=== PATIENT | female | born 1975 | race Caucasian/White ===

== ENCOUNTER → 2016-11-25 | Outpatient (CLI) | payer OTHER ==
[2016-11-25 08:18] VITALS: BP 143/76; PULSE 65; RESP 16; TEMP 98.3; BMI 32.8
--- NOTE | 2016-11-25 09:53 | P.HPBAR ---
Bariatric H&P - History & Physicial H&P Date: 11/25/16 History & Physicial: 41 years old female with morbid obesity initial BMI 49.3 height 5 feet 2 inches , weight 124.33 KG underwent laparoscopic Gerson-en-Y gastric bypass on 2014. Chronic constipation now having BM every other day with caffeine intake . Mild elevation of LFTs and bilirubin. Already had cholecystectomy. LFTs normal in June. US done at PCP office- normal No nausea or vomiting. Tolerating diet well Hypertension has resolved. She is not taking any antihypertensive medications. Type 2 diabetes has resolved. She has herniated disc in the upper neck and back and has chronic pain secondary to fibromyalgia. Her sleep apnea has resolved. Recent brain MRI ordered by neurologist for suspected multiple sclerosis. CSF -negative for malignancy Her initial comorbid conditions include obstructive sleep apnea on CPAP, Type 2 diabetes, osteoarthritis of left hip, urinary incontinence, fibromyalgia, irritable bowel syndrome, depression, anxiety, posttraumatic stress disorder, insomnia, migraines, vitamin D deficiency, MS Multiple studies including CT abd/pelvis and SBFT for abdominal symptoms- no acute process/bowel obstruction. Resumed work , nigh shifts. C/o chronic tiredness, fatique, sleep deprivation Preoperative visit #1 07/24/2015, weight 124.33 KG, BMI 49.3 Preoperative visit #2 10/02/2015, weight 127 KG, BMI 50.4 Preoperative visit #3 10/23/2015, weight, 126 KG, BMI 50 Lap Gerson-en-Y gastric bypass 11/18/2015 Postoperative visit #1 11/27/2015, weight 113.96 KG, BMI of 45.2 Postoperative visit #2 02/05/2016, weight 104.5 kg, BMI 41.5 Postoperative visit #3 04/29/2016, weight 104.5 kg, BMI 41.5 Postoperative visit #4, 07/22/2016, weight 87.57 KG, BMI 34.7 Postoperative visit #5, 10/07/2016, weight 85.9KG, BMI 34.1 Postoperative visit#6,10/14/2016, weight 83.2 KG, BMI 33 Postoperative visit#7,11/25/2016, weight 82.7 KG, BMI 32.8 Review of Systems Constitutional: Denies fever, weight loss or loss of appetite HEENT: No difficulty in vision or hearing. Denies dysphagia. Cardiovascular: Denies chest pain, palpitations, dizziness, shortness of breath. Respiratory: No asthma or shortness of breath. Gastrointestinal: Irritable bowel syndrome with alternating constipation and diarrhea episodes Integumentary: Skin ulcers, rash or breakdown. No history of DVT Genitourinary: She has urinary incontinence,no hematuria or dysuria Neurologic: No seizures, denies weakness in upper or lower extremities. History of migraine headaches. History of TIA Musculoskeletal: Chronic hip pain, neck pain secondary to arthritis. History of fibromyalgia Psychiatry: Known history of depression, anxiety and posttraumatic stress disorder no suicidal ideation, no anxiety or psychosis Past Medical History Past Medical History: Diabetes Mellitus, Fibromyalgia, GERD/Reflux, Hyperlipidemia, Hypertension, Musculoskeletal Disorder, Osteoarthritis (OA), Sleep Apnea/CPAP/BIPAP Additional Past Medical History / Comment(s): Morbid obesity, diabetes mellitus , degenerative arthritis with chronic bilateral hip pain, history of bursitis, obstructive sleep apnea maintained on CPAP at pressure of 70 cm of water, irritable bowel syndrome, hiatal hernia history of H. pylori that was treated with antibiotics, fibromyalgia, GE reflux, History of Any Multi-Drug Resistant Organisms: None Reported Past Surgical History: Bariatric Surgery, Cholecystectomy, Hysterectomy, Orthopedic Surgery, Uterine Ablation Additional Past Surgical History / Comment(s): BILAT CARPAL TUNNEL RELEASE. GERSON EN Y. BILAT KNEE ARTHROSCOPY. RT ROTATOR CUFF REPAIR-05/2014. COLONOSCOPY, EGD Past Anesthesia/Blood Transfusion Reactions: Motion Sickness, Postoperative Nausea & Vomiting (PONV) Additional Past Anesthesia/Blood Transfusion Reaction / Comm: CLAUSTERPHOBIA Past Psychological History: Anxiety, Depression, PTSD Smoking Status: Never smoker Past Alcohol Use History: None Reported Past Drug Use History: None Reported - Past Family History Mother Family Medical History: Diabetes Mellitus, Hyperlipidemia, Hypertension Additional Family Medical History / Comment(s): OBESITY, DEPRESSION. GRANDFATHER HAD DVT Father Family Medical History: Coronary Artery Disease (CAD), Diabetes Mellitus, Hyperlipidemia, Hypertension, Myocardial Infarction ([place]), Renal Disease Additional Family Medical History / Comment(s): GOUT, CARDIAC STENTS Surgical - Exam Vital Signs Temp Pulse Resp BP 98.3 F 65 16 143/76 11/25/16 08:15 11/25/16 08:15 11/25/16 08:15 11/25/16 08:15 General: Patient is alert and oriented to time, place and person and cooperative with exam. She is not in acute distress. HEENT: No pallor, no icterus, no thyroid enlargement, no cervical lymphadenopathy. Chest: Bilateral equal breath sounds present. No wheezes, no crackles. Cardiovascular: Regular rate and rhythm. Abdomen: Soft, nontender, nondistended. No right upper quadrant tenderness. Well-healed surgical scars.No peritonitis. No obstruction Integumentary: No active ulcers or discharge. Neurologic: Cranial nerves II-XII intact. Strength upper and lower extremities 5/5. No focal neurologic deficits. Gait is normal. History of TIA, followed by Dr. Little. Recent diagnosis of multiple sclerosis. Psychiatric: No anxiety or psychosis. No suicidal thoughts. Has depression and posstraumatic stress disorder Bariatric Assessment & Plan (1) Depression Status: Acute (2) Fibromyalgia Status: Acute (3) Obesity (BMI 30.0-34.9) Status: Acute Plan: 1. 41 yr old female with chronic constipation now resolved 2. Elevated LFTs, prior cholecystectomy, repeat LFT in 6 months - follow up with PCP 3. Follow up with plastic surgeon Dr. Silva and Dr. Luca Dai for breast reduction/nipple discharge. She will also discuss panniculectomy with Dr. Silva 4. Daily MVI 5. [facility] 6. Continue support group meeting. Increase physical activity as tolerated Bariatric Checklist Checklist: Plan: Checklist: EGD: 1. Hiatal hernia: 2. H. Pylori: HgbA1c: Vitamin D: Smoking: Never smoker Primary care physician referral: Dr. Díaz Psychiatry clearance: Cardiology clearance: Sleep study: Diet journal: VTE risk score: VTE risk level: Rehab needs at discharge:
== END | disposition home or self-care (01) ==
LOC: BARWHC3 07:42
PROVIDERS: ATTEND Surgery
DX: Z48.815 Encounter for surgical aftercare following surgery on the digestive system (principal); Z71.3 Dietary counseling and surveillance; G47.30 Sleep apnea, unspecified; Z99.89 Dependence on other enabling machines and devices; Z98.84 Bariatric surgery status; F32.9 Major depressive disorder, single episode, unspecified; M79.7 Fibromyalgia; R79.89 Other specified abnormal findings of blood chemistry; E66.9 Obesity, unspecified; Z68.32 Body mass index [BMI] 32.0-32.9, adult
CPT/HCPCS: 97803; G0463; 99211

== ENCOUNTER 2016-12-07 21:05 | Inpatient (IN) | payer OTHER ==
[2016-12-07] MEDS ORDERED: HYDROmorphone 1 MG/ML 1 ML SYRINGE IVP STA ×2 (21:10→21:20)
[2016-12-07] MEDS ORDERED: METOCLOPRAMIDE 5 MG/ML 2 ML VIAL IVP STA (21:11)
[2016-12-07] MEDS ORDERED: ONDANSETRON 4 MG/2 ML VIAL IVP STA (21:21)
[2016-12-07] MEDS ORDERED: RX INFO: IV CONTRAST WAS GIVEN 1 EACH MISC MISCELLANE PRN (21:21)
[2016-12-07] MEDS ORDERED: IOHEXOL 350 MG/ML 25 ML BOTTLE (ORAL USE) PO PRN (21:21)
[2016-12-07] MEDS ORDERED: PANTOPRAZOLE 40 MG/10 ML VIAL IVP STA (21:21)
--- NOTE | 2016-12-07 21:22 | ED ---
General Adult HPI - General Chief complaint: Abdominal Pain Stated complaint: abdominal pain/nausea Time Seen by Provider: 12/07/16 21:09 Source: patient, RN notes reviewed, old records reviewed Mode of arrival: ambulatory Limitations: no limitations - History of Present Illness Initial comments: Chief complaint patient is here for abdominal pain small amount of vomiting. She has not bowel movement for 2 days long history of constipation problems. She's been taking supplements to help her go. Including MiraLAX and Dulcolax twice. She called Dr. Pretty on-call bariatric surgeon. Dr. Dugan: Patient to have a CAT scan IV and oral contrast for bariatric surgery. Rehydration. - Related Data Home Medications Medication Instructions Recorded Confirmed Citalopram Hydrobromide [CeleXA] 40 mg PO DAILY 04/15/14 12/07/16 Biotin 5 mg PO DAILY 04/29/16 12/07/16 Polyethylene Glycol 3350 [Miralax] 17 gm PO DAILY 10/08/16 12/07/16 Inulin/Chromium Picolinate [Fiber 1 tab PO BID 10/14/16 12/07/16 Gummies Chew] Bariatric Calcium 1 tab PO TID 12/07/16 12/07/16 Bariatric Multivitamin 1 tab PO BID 12/07/16 12/07/16 Allergies Allergy/AdvReac Type Severity Reaction Status Date / Time pregabalin [From Lyrica] Allergy Severe Swelling Verified 12/07/16 21:26 of lips & throat. prednisone Allergy Rash/Hives Verified 12/07/16 21:26 Sulfa (Sulfonamide Allergy Anaphylaxis Verified 12/07/16 21:26 Antibiotics) Review of Systems ROS Statement: Those systems with pertinent positive or pertinent negative responses have been documented in the HPI. Review of systems patient denies any headache or chest pain or shortness of breath she has chronic abdominal pain usually associated with constipation which was going on even before the bariatric surgery. Patient denies taking any opiates. Nausea small amount of vomiting. No bowel movement for 2 days. All systems otherwise reviewed. Past medical problems fibromyalgia, GERD, osteoarthritis, surgeries for 2 months ago bariatric surgery, gallbladder, hysterectomy, arthroscopic surgery to both knees, carpal tunnel and rotator cuff. Family history brain cancer. Patient has ALLERGIES to Lyrica, prednisone and sulfa. Denies smoking denies drinking. ROS Other: All systems not noted in ROS Statement are negative. Past Medical History Past Medical History: Diabetes Mellitus, Fibromyalgia, GERD/Reflux, Hyperlipidemia, Hypertension, Musculoskeletal Disorder, Osteoarthritis (OA), Sleep Apnea/CPAP/BIPAP Additional Past Medical History / Comment(s): Morbid obesity, diabetes mellitus , degenerative arthritis with chronic bilateral hip pain, history of bursitis, obstructive sleep apnea maintained on CPAP at pressure of 70 cm of water, irritable bowel syndrome, hiatal hernia history of H. pylori that was treated with antibiotics, fibromyalgia, GE reflux, History of Any Multi-Drug Resistant Organisms: None Reported Past Surgical History: Bariatric Surgery, Cholecystectomy, Hysterectomy, Orthopedic Surgery, Uterine Ablation Additional Past Surgical History / Comment(s): BILAT CARPAL TUNNEL RELEASE. LAURIE EN Y. BILAT KNEE ARTHROSCOPY. RT ROTATOR CUFF REPAIR-05/2014. COLONOSCOPY, EGD Past Anesthesia/Blood Transfusion Reactions: Motion Sickness, Postoperative Nausea & Vomiting (PONV) Additional Past Anesthesia/Blood Transfusion Reaction / Comment(s): CLAUSTERPHOBIA Past Psychological History: Anxiety, Depression, PTSD Smoking Status: Never smoker Past Alcohol Use History: None Reported Past Drug Use History: None Reported - Past Family History Mother Family Medical History: Diabetes Mellitus, Hyperlipidemia, Hypertension Additional Family Medical History / Comment(s): OBESITY, DEPRESSION. GRANDFATHER HAD DVT Father Family Medical History: Coronary Artery Disease (CAD), Diabetes Mellitus, Hyperlipidemia, Hypertension, Myocardial Infarction ([place]), Renal Disease Additional Family Medical History / Comment(s): GOUT, CARDIAC STENTS General Exam - General Exam Comments Initial Comments: General: The patient is awake and alert, complaining of abdominal pain getting progressively worse over the past day. Mild nausea vomiting no bowel movement for 2 days. History of constipation problems even before she had bariatric surgery 13 months ago. Vital signs show temperature 98.0 pulse 82 respiratory rate 18 pulse ox 90% room air blood pressure 144/91. Mildly elevated systolic and diastolic noted. Patient is in pain. Eye: Pupils are equal, round and reactive to light, extra-ocular movements are intact ; there is normal conjunctiva bilaterally. No signs of icterus. Ears, nose, mouth and throat: There are moist mucous membranes and no oral lesions. Neck: The neck is supple, there is no tenderness . Cardiovascular: There is a regular rate and rhythm. No murmur, rub or gallop is appreciated. Respiratory: Lungs are clear to auscultation, respirations are non-labored, breath sounds are equal. No wheezes, stridor, rales, or rhonchi. Gastrointestinal: Abdomen is soft, patient has voluntary guarding, no masses palpable. Hypoactive bowel sounds. No bowel movement for 2 days. Back: No complaint of back pain. Musculoskeletal: Full range of motion upper and lower extremities. No complaint of pain. Neurological: No complaint of or noted any neuro deficits. Skin: Skin is warm and dry and no rashes or lesions are noted. Limitations: no limitations Course Vital Signs 12/07/16 21:06 Temperature 98.0 F Pulse Rate 82 Respiratory 18 Rate Blood Pressure 144/91 O2 Sat by Pulse 98 Oximetry Medical Decision Making - Medical Decision Making Medical decision making; labs show white count 13.1 hemoglobin 15 hematocrit of 46. Potassium 4.3 with a BUN 16 creatinine 0.7 with a GFR greater than 60, glucose 123. AST and an ALT both elevated. Amylase and lipase within normal limits. CT of the abdomen was done and reviewed by radiologist his impression is there are postsurgical changes of bariatric surgery. There is food distention of the small bowel loops with probable distal small bowel obstruction. Transition zone is not well visualized. There is also suggestion of inflammatory bowel disease or enteritis changes involving proximal small bowel. Clinical correlation a surgical consultation recommended. #2 large amount of fecal material is noted in the colon. Patient is constipated. #3 cholecystectomy. 4 appendix appears unremarkable. As read by Dr. Johnson - Lab Data Result diagrams: 12/07/16 21:30 12/07/16 22:40 Lab Results 12/07/16 12/07/16 Range/Units 21:30 22:40 WBC 13.1 H (3.8-10.6) k/uL RBC 5.30 (3.80-5.40) m/uL Hgb 15.4 (11.4-16.0) gm/dL Hct 46.6 H (34.0-46.0) % MCV 88.0 (80.0-100.0) fL MCH 29.2 (25.0-35.0) pg MCHC 33.1 (31.0-37.0) g/dL RDW 13.0 (11.5-15.5) % Plt Count 276 (150-450) k/uL Neutrophils % 74 % Lymphocytes % 19 % Monocytes % 5 % Eosinophils % 2 % Basophils % 0 % Neutrophils # 9.7 H (1.3-7.7) k/uL Lymphocytes # 2.5 (1.0-4.8) k/uL Monocytes # 0.6 (0-1.0) k/uL Eosinophils # 0.2 (0-0.7) k/uL Basophils # 0.1 (0-0.2) k/uL Sodium 140 (137-145) mmol/L Potassium 4.3 (3.5-5.1) mmol/L Chloride 106 (98-107) mmol/L Carbon Dioxide 25 (22-30) mmol/L Anion Gap 9 mmol/L BUN 16 (7-17) mg/dL Creatinine 0.70 (0.52-1.04) mg/dL Est GFR (MDRD) Af Amer >60 (>60 ml/min/1.73 sqM) Est GFR (MDRD) Non-Af >60 (>60 ml/min/1.73 sqM) Glucose 123 H (74-99) mg/dL Calcium 8.5 (8.4-10.2) mg/dL Total Bilirubin 0.8 (0.2-1.3) mg/dL AST 46 H (14-36) U/L ALT 63 H (9-52) U/L Alkaline Phosphatase 87 (38-126) U/L Total Protein 6.0 L (6.3-8.2) g/dL Albumin 3.5 (3.5-5.0) g/dL Amylase 43 (30-110) U/L Lipase 40 (23-300) U/L Disposition Clinical Impression: Small bowel obstruction Disposition: ADMITTED IP TO THIS [facility] Condition: Serious
[2016-12-07] MEDS ORDERED: SODIUM CHLORIDE 0.9% 1,000 ML IV STA (22:09)
--- NOTE | 2016-12-07 22:39 | CT ---
EXAMINATION TYPE: CT abdomen pelvis w con DATE OF EXAM: 12/07/2016 10:08 PM COMPARISON: 10/01/2016 HISTORY: Pt states of vomiting and abdominal pain today. HX of bariatric sx. CT DLP: 848.8 mGycm Automated exposure control for dose reduction was used. TECHNIQUE: Helical acquisition of images was performed from the lung bases through the pelvis. CONTRAST: Performed with Oral Contrast and with IV Contrast, patient injected with 100 mL of Omnipaque 300. FINDINGS: LUNG BASES: No significant abnormality is appreciated. LIVER/GB: No significant abnormality is appreciated in the liver. Cholecystectomy changes are noted. PANCREAS: No significant abnormality is seen. SPLEEN: No significant abnormality is seen. ADRENALS: No significant abnormality is seen. KIDNEYS: No significant abnormality is seen. RETROPERITONEAL ADENOPATHY: None visualized REPRODUCTIVE ORGANS: There is probably partial or total hysterectomy changes. URINARY BLADDER: No significant abnormality is seen. PELVIC ADENOPATHY: None visualized. OSSEOUS STRUCTURES: Milder degenerative changes are present in the thoracolumbar spine. BOWEL: There is evidence of bariatric surgery changes in the interval with multiple surgical clips i n the area of stomach. There is moderate distention of small bowel loops with fold material extending from the anastomotic site of stomach as seen in the coronal image 24. The anastomotic site is noted with the stomach and small bowel in the axial image 24 and coronal image 23. There is suspected obstr ucting changes probably in the distal small bowel. The transition zone is not well visualized. There is mucosal thickening in the small bowel in the proximal portion near the anastomotic site with stomach and inflammatory bowel disease or enteritis changes in this area cannot be excluded in the c oronal image 27. The colonic bowel loops showed large amount of gas and fecal material and patient is constipated. Visualized opacified appendix in the coronal image 58 and axial image 59 is gas-filled and appears gr ossly unremarkable without significant surrounding inflammation. OTHER: No significant abnormal free fluid collections are noted in the abdomen and pelvis. IMPRESSION: 1. THERE ARE POSTSURGICAL CHANGES OF BARIATRIC SURGERY. THERE IS FOOD DISTENTION OF SMALL BOWEL LOOPS WITH PROBABLE DISTAL SMALL BOWEL OBSTRUCTION. THE TRANSITION ZONE IS NOT WELL-VISUALIZED. THERE IS A LSO SUGGESTION OF INFLAMMATORY BOWEL DISEASE OR ENTERITIS CHANGES INVOLVING PROXIMAL SMALL BOWEL. A C LINICAL CORRELATION AND SURGICAL CONSULTATION IS RECOMMENDED. 2. LARGE AMOUNT OF FECAL MATERIAL IS NOTED IN THE COLON. PATIENT IS CONSTIPATED. 3. Cholecystectomy. 4. Appendix appears unremarkable. A phone report is given to Dr. Hartmann at the time of the dictation.
[2016-12-07 22:44] LABS: Basophils # (A) 0.1 k/uL (0-0.2); Basophils % (A) 0 %; CH 29.8; Eosinophils # (A) 0.2 k/uL (0-0.7); Eosinophils % (A) 2 %; HCT 46.6 % (34.0-46.0); HDW 2.32; HGB 15.4 gm/dL (11.4-16.0); Luc # (Auto) 0.13; Luc % (Auto) 1; Lymphocytes # (A) 2.5 k/uL (1.0-4.8); Lymphocytes % (A) 19 %; MCH 29.2 pg (25.0-35.0); MCHC 33.1 g/dL (31.0-37.0); Mean Platelet Volume 7.9; Monocytes # (A) 0.6 k/uL (0-1.0); Monocytes % (A) 5 %; Neutrophils # (A) 9.7 k/uL (1.3-7.7); Neutrophils % (A) 74 %; WBC 13.1 k/uL (3.8-10.6); WBC (Perox) 12.95
[2016-12-07 23:11] LABS: ALT 63 U/L (9-52); AST 46 U/L (14-36); Alkaline Phosphatase 87 U/L (38-126); Amylase 43 U/L (30-110); Anion Gap 9 mmol/L; Blood Urea Nitrogen 16 mg/dL (7-17); Calcium 8.5 mg/dL (8.4-10.2); Carbon Dioxide 25 mmol/L (22-30); Chloride 106 mmol/L (98-107); Glucose 123 mg/dL (74-99); Non-African American GFR(MDRD) >60 (>60 ml/min/1.73 sqM); Potassium 4.3 mmol/L (3.5-5.1); Sodium 140 mmol/L (137-145); Total Bilirubin 0.8 mg/dL (0.2-1.3)
[2016-12-07] MEDS ORDERED: NALOXONE 0.4 MG/ML 1 ML VIAL IV PRN (23:36)
[2016-12-08] MEDS: HYDROmorphone 1 MG/ML 1 ML SYRINGE IV PRN ×6 (00:15→22:26)
[2016-12-08] MEDS: ONDANSETRON 4 MG/2 ML VIAL IVP PRN ×3 (05:22→22:25)
[2016-12-08] MEDS: SODIUM CHLORIDE 0.9% 1,000 ML IV SCH ×4 (08:23→20:16)
[2016-12-08] MEDS: PANTOPRAZOLE 40 MG/10 ML VIAL IV SCH (08:36)
[2016-12-08 10:08] LABS: Basophils % (A) 0 %; CH 29.3; CHCM 32.9; Eosinophils # (A) 0.1 k/uL (0-0.7); Eosinophils % (A) 1 %; HCT 43.5 % (34.0-46.0); Luc # (Auto) 0.08; Luc % (Auto) 1; Lymphocytes # (A) 2.6 k/uL (1.0-4.8); Lymphocytes % (A) 30 %; MCH 28.7 pg (25.0-35.0); MCHC 32.2 g/dL (31.0-37.0); MCV 89.4 fL (80.0-100.0); Mean Platelet Volume 7.5; Monocytes # (A) 0.5 k/uL (0-1.0); Monocytes % (A) 6 %; Neutrophils # (A) 5.4 k/uL (1.3-7.7); Neutrophils % (A) 62 %; RBC 4.87 m/uL (3.80-5.40); WBC 8.7 k/uL (3.8-10.6); WBC (Perox) 9.25
[2016-12-08 10:17] LABS: ALT 613 U/L (9-52); Alkaline Phosphatase 124 U/L (38-126); Anion Gap 9 mmol/L; Blood Urea Nitrogen 13 mg/dL (7-17); Calcium 8.2 mg/dL (8.4-10.2); Carbon Dioxide 25 mmol/L (22-30); Chloride 108 mmol/L (98-107); Glucose 101 mg/dL (74-99); Non-African American GFR(MDRD) >60 (>60 ml/min/1.73 sqM); Potassium 4.3 mmol/L (3.5-5.1); Sodium 142 mmol/L (137-145); Total Bilirubin 1.1 mg/dL (0.2-1.3); Total Protein 5.9 g/dL (6.3-8.2)
[2016-12-08 10:26] LABS: AST 1418 U/L (14-36)
[2016-12-08] MEDS ORDERED: MAGNESIUM HYDROXIDE 2,400 MG/10 ML CUP PO PRN (11:06)
--- NOTE | 2016-12-08 11:11 | XR ---
EXAMINATION TYPE: XR abdomen 2V DATE OF EXAM: 12/08/2016 11:01 AM COMPARISON: NONE INDICATION: Abdomen pain TECHNIQUE: Single view abdomen supine position FINDINGS: There is a normal bowel gas pattern. Fecal debris is within the ascending colon. Surgical suture is i n the left upper quadrant. Surgical clips are in the left and right upper quadrants. There is a large urinary bladder filled with contrast. Psoas margins are normal. No organomegaly is present. IMPRESSION: 1. No acute abnormality radiographically apparent.
[2016-12-08 11:44] LABS: Amylase <30 U/L (30-110); Cholesterol 155 mg/dL (<200); HDL Cholesterol 55 mg/dL (40-60); Triglycerides 72 mg/dL (<150)
[2016-12-08 12:15] LABS: Hepatitis B Surface Ag Index 0.07
[2016-12-08 12:21] LABS: Hepatitis B Core IgM Index 0.02
[2016-12-08 12:32] LABS: Hepatitis C Virus IgG Index 0.02
[2016-12-08 12:35] LABS: Hepatitis C Virus IgG Ab Negative (Negative)
--- NOTE | 2016-12-08 13:03 | P.CONS ---
History of Present Illness - Reason for Consult Consult date: 12/08/16 Elevated liver enzymes Requesting physician: No Hilliard - History of Present Illness 41-year-old female with a history of anxiety depression PTSD, fibromyalgia, cholelithiasis/cholecystectomy 20 years ago and laparoscopic Gerson-en-Y gastric bypass October 2015 presents with upper crampy abdominal pain nausea vomiting constipation that started yesterday. Consultation requested for elevated liver enzymes. Hepatitis panel negative. Admission white count 13 currently 8.7. Total bilirubin 0.8 currently 1.1. AST 46 currently 1418. ALT 63 currently 613. Alkaline phosphatase 87 currently 124. Amylase lipase within normal limits. Denies usage of of aspirin or Tylenol products prior to admission. No changes in her home medications prior to admission. Medications received since admission are Dilaudid, Protonix, and Zofran. No documented episodes of hypotension; blood pressure 104/63. No hospitalizations for retained gallstones since her cholecystectomy. Computed tomography scan abdomen and pelvis reported food distention of small bowel loops with probable distal small bowel obstruction with transition zone not well visualized. Enteritis changes involving proximal small bowel with large amount of fecal material in the colon. Postsurgical changes of bariatric surgery. Review of Systems Constitutional: Denies fever, chills, sweats, weight gain, or loss. HEENT: Negative for migraines, blurred vision or loss, earaches, drainage, tinnitus, oral mucosal lesions, dysphagia, or odynophagia. CARDIAC: Negative for chest pain, arrhythmias, or palpitation. RESPIRATORY: Negative for shortness of breath, hemoptysis, cough, or sputum production. GI: See HPI for pertinent findings : Negative for hematuria, urgency, frequency, polyuria, or dysuria. GYNc: Denies possibility of . Negative vaginal discharge. MUSCULOSKELETAL: She fibromyalgia. Osteo-arthritis. NEUROLOGIC: Negative for stroke or TIA. ENDOCRINE: Negative for thyroid problems. SKIN: Negative for rash or itching. PSYCHIATRIC: See of PTSD, depression and anxiety Past Medical History Past Medical History: Fibromyalgia, Musculoskeletal Disorder, Osteoarthritis (OA ) Additional Past Medical History / Comment(s): Morbid obesity, degenerative arthritis with chronic bilateral hip pain, history of bursitis, irritable bowel syndrome, hiatal hernia history of H. pylori that was treated with antibiotics, umbilical hernia History of Any Multi-Drug Resistant Organisms: None Reported Past Surgical History: Bariatric Surgery, Cholecystectomy, Hysterectomy, Orthopedic Surgery, Uterine Ablation Additional Past Surgical History / Comment(s): BILAT CARPAL TUNNEL RELEASE. GERSON EN Y. BILAT KNEE ARTHROSCOPY. RT ROTATOR CUFF REPAIR-05/2014. COLONOSCOPY, EGD Past Anesthesia/Blood Transfusion Reactions: Motion Sickness, Postoperative Nausea & Vomiting (PONV) Additional Past Anesthesia/Blood Transfusion Reaction / Comm: CLAUSTERPHOBIA Past Psychological History: Anxiety, Depression, PTSD Smoking Status: Never smoker Past Alcohol Use History: None Reported Past Drug Use History: None Reported - Past Family History Mother Family Medical History: Diabetes Mellitus, Hyperlipidemia, Hypertension Additional Family Medical History / Comment(s): OBESITY, DEPRESSION. GRANDFATHER HAD DVT Father Family Medical History: Coronary Artery Disease (CAD), Diabetes Mellitus, Hyperlipidemia, Hypertension, Myocardial Infarction ([place]), Renal Disease Additional Family Medical History / Comment(s): GOUT, CARDIAC STENTS Medications and Allergies Home Medications Medication Instructions Recorded Confirmed Type Citalopram Hydrobromide [CeleXA] 40 mg PO DAILY 04/15/14 12/07/16 History Biotin 5 mg PO DAILY 04/29/16 12/07/16 History Polyethylene Glycol 3350 [Miralax] 17 gm PO DAILY 10/08/16 12/07/16 History Inulin/Chromium Picolinate [Fiber 1 tab PO BID 10/14/16 12/07/16 History Gummies Chew] Bariatric Calcium 1 tab PO TID 12/07/16 12/07/16 History Bariatric Multivitamin 1 tab PO BID 12/07/16 12/07/16 History Allergies Allergy/AdvReac Type Severity Reaction Status Date / Time pregabalin [From Lyrica] Allergy Severe Swelling Verified 12/07/16 21:26 of lips & throat. prednisone Allergy Rash/Hives Verified 12/07/16 21:26 Sulfa (Sulfonamide Allergy Anaphylaxis Verified 12/07/16 21:26 Antibiotics) Physical Exam Vitals: Vital Signs Temp Pulse Pulse Resp BP BP Pulse Ox 12/08/16 07:00 97.5 F L 81 16 104/63 97 12/08/16 00:43 98.8 F 68 16 104/63 96 12/08/16 00:17 97.7 F 12/07/16 23:39 77 18 104/62 97 Intake and Output 12/07/16 12/08/1617 22:59 06:59 14:59 Other: Voiding Method Toilet Toilet # Voids 1 Results CBC & Chem 7: 12/08/16 09:52 12/08/16 12:59 Labs: Abnormal Lab Results - Last 24 Hours (Table) 12/08/16 12/08/16 Range/Units 09:52 09:52 Chloride 108 H (98-107) mmol/L Glucose 101 H (74-99) mg/dL Calcium 8.2 L (8.4-10.2) mg/dL AST 1418 H (14-36) U/L ALT 613 H (9-52) U/L Total Protein 5.9 L (6.3-8.2) g/dL Albumin 3.2 L (3.5-5.0) g/dL Amylase <30 L (30-110) U/L CT scan - abdomen: report reviewed CT scan - pelvis: report reviewed (Reviewed by Dr. Parsons) Assessment and Plan (1) Elevated liver enzymes Narrative/Plan: 41-year-old female admitted with 1 day history of acute upper abdominal pain with nausea vomiting constipation with history of Gerson-en-Y gastric bypass with CT imaging suggestive of partial small bowel obstruction with acute transaminitis of unclear etiology. History of cholecystectomy cholelithiasis cannot rule out evolving choledocholithiasis. Possible medication induced transaminitis. Status: Acute (2) History of Gerson-en-Y gastric bypass Status: Acute (3) Abdominal pain Status: Acute Plan: 1. Repeat hepatic function test at 1800 tonight and in the a.m. Will check acetaminophen and salicylate level as well as PT/INR. 2. Supportive measures. US abdomen and hepatic function test pending. 3. Will consider MRCP if transaminases do not improve as patient is not a candidate for ERCP due to Gerson-en-Y gastric bypass history. Patient is tentatively scheduled for surgery tomorrow. Thank you for this kind referral and the opportunity to participate in the care of your patient. This consultation was discussed with Dr. Parsons. The impression and plan of care have been directed as dictated.
[2016-12-08 13:34] LABS: Alkaline Phosphatase 151 U/L (38-126); Anion Gap 9 mmol/L; Blood Urea Nitrogen 13 mg/dL (7-17); Calcium 8.2 mg/dL (8.4-10.2); Carbon Dioxide 25 mmol/L (22-30); Chloride 107 mmol/L (98-107); Glucose 130 mg/dL (74-99); Non-African American GFR(MDRD) >60 (>60 ml/min/1.73 sqM); Sodium 141 mmol/L (137-145); Total Bilirubin 1.4 mg/dL (0.2-1.3); Total Protein 6.1 g/dL (6.3-8.2)
[2016-12-08 13:42] LABS: ALT 1025 U/L (9-52)
[2016-12-08 13:57] LABS: AST 2160 U/L (14-36)
--- NOTE | 2016-12-08 15:41 | P.HPIM ---
History of Present Illness H&P Date: 12/07/16 Chief Complaint: Abdominal pain 41-year-old female presented on the day of admission to the emergency room with a chief complaint of developing abdominal pain. Patient was stating that the abdominal pain felt like a cramping sensation it seemed to get more symptomatic over the past 24 hours. Patient stated that she had a sensation of nausea no active emesis. Patient states that she has had issues with constipation even before she had the bariatric surgery Patient states that she had not had a bowel movement in the past several days. Patient states that she has issues with constipation. Patient reportedly called Dr. Rhodes who was on-call for bariatric surgery. Patient did undergo a laparoscopic janice-en-y gastric bypass in October 2015. Patient was admitted to the services of the attending. There 's been a gastroneurology consultation requested On admission it was noted that the AST was 46 a currently is elevated at 1418. In the ALT 63 which currently is elevated to 613. Patient does not appear jaundiced. The CAT scan of the abdomen pelvis was report reviewed shows postsurgical changes of bariatric surgery. Small bowel loops with possible distal small bowel obstruction with a transition zone not well visualized.enteritis changes involving proximal small bowel with a large amount of fecal material noted in the colon Review of Systems Essentially unremarkable except as mentioned in the present illness Past Medical History Past Medical History: Fibromyalgia, Musculoskeletal Disorder, Osteoarthritis (OA ) Additional Past Medical History / Comment(s): Morbid obesity, degenerative arthritis with chronic bilateral hip pain, history of bursitis, irritable bowel syndrome, hiatal hernia history of H. pylori that was treated with antibiotics, umbilical hernia History of Any Multi-Drug Resistant Organisms: None Reported Past Surgical History: Bariatric Surgery, Cholecystectomy, Hysterectomy, Orthopedic Surgery, Uterine Ablation Additional Past Surgical History / Comment(s): BILAT CARPAL TUNNEL RELEASE. JANICE EN Y. BILAT KNEE ARTHROSCOPY. RT ROTATOR CUFF REPAIR-05/2014. COLONOSCOPY, EGD Past Anesthesia/Blood Transfusion Reactions: Motion Sickness, Postoperative Nausea & Vomiting (PONV) Additional Past Anesthesia/Blood Transfusion Reaction / Comment(s): CLAUSTERPHOBIA Past Psychological History: Anxiety, Depression, PTSD Smoking Status: Never smoker Past Alcohol Use History: None Reported Past Drug Use History: None Reported - Past Family History Mother Family Medical History: Diabetes Mellitus, Hyperlipidemia, Hypertension Additional Family Medical History / Comment(s): OBESITY, DEPRESSION. GRANDFATHER HAD DVT Father Family Medical History: Coronary Artery Disease (CAD), Diabetes Mellitus, Hyperlipidemia, Hypertension, Myocardial Infarction ([place]), Renal Disease Additional Family Medical History / Comment(s): GOUT, CARDIAC STENTS Medications and Allergies Home Medications Medication Instructions Recorded Confirmed Type Citalopram Hydrobromide [CeleXA] 40 mg PO DAILY 04/15/14 12/07/16 History Biotin 5 mg PO DAILY 04/29/16 12/07/16 History Polyethylene Glycol 3350 [Miralax] 17 gm PO DAILY 10/08/16 12/07/16 History Inulin/Chromium Picolinate [Fiber 1 tab PO BID 10/14/16 12/07/16 History Gummies Chew] Bariatric Calcium 1 tab PO TID 12/07/16 12/07/16 History Bariatric Multivitamin 1 tab PO BID 12/07/16 12/07/16 History Allergies Allergy/AdvReac Type Severity Reaction Status Date / Time pregabalin [From Lyrica] Allergy Severe Swelling Verified 12/07/16 21:26 of lips & throat. prednisone Allergy Rash/Hives Verified 12/07/16 21:26 Sulfa (Sulfonamide Allergy Anaphylaxis Verified 12/07/16 21:26 Antibiotics) Physical Exam Vitals: Vital Signs Temp Pulse Pulse Resp BP BP Pulse Ox 12/08/16 15:00 97.5 F L 62 16 109/65 92 L 12/08/16 07:00 97.5 F L 81 16 104/63 97 12/08/16 00:43 98.8 F 68 16 104/63 96 12/08/16 00:17 97.7 F 12/07/16 23:39 77 18 104/62 97 Intake and Output 12/08/16 12/08/16 12/08/16 06:59 14:59 22:59 Other: Voiding Method Toilet Toilet # Voids 1 1 # Bowel Movements 1 GENERAL APPEARANCE: 41-year-old patient is alert, oriented, in no acute distress. VITAL SIGNS: Reviewed HEENT: Head is normocephalic and atraumatic. Pupils are equal and reactive. The nares are patent. Oropharynx is clear without lesions. NECK: Supple without lymphadenopathy. Traches midline. HEART: S1, S2. Regular rate and rhythm. No murmur noted LUNGS: No crackles or wheezes are heard. No cough noted no conversational dyspnea noted on room air sats are documented 92% ABDOMEN: Soft, slight tenderness, nondistended with good bowel sounds. No peritoneal signs. No palpable organomegaly or masses. States urinating no difficulty EXTREMITIES: Normal skin color and turgor. No cyanosis, rash, ulceration, clubbing or edema. Radial pedal pulses are 2/4 bilaterally. NEUROLOGICAL: No focal deficits. Strength and sensation are grossly intact. Results CBC & Chem 7: 12/08/16 09:52 12/08/16 12:59 Labs: Abnormal Lab Results - Last 24 Hours (Table) 12/08/16 12/08/16 12/08/16 Range/Units 09:52 09:52 12:59 Chloride 108 H (98-107) mmol/L Glucose 101 H 130 H (74-99) mg/dL Calcium 8.2 L 8.2 L (8.4-10.2) mg/dL Total Bilirubin 1.4 H (0.2-1.3) mg/dL AST 1418 H 2160 H (14-36) U/L ALT 613 H 1025 H (9-52) U/L Alkaline Phosphatase 151 H (38-126) U/L Total Protein 5.9 L 6.1 L (6.3-8.2) g/dL Albumin 3.2 L 3.4 L (3.5-5.0) g/dL Amylase <30 L (30-110) U/L Thrombosis Risk Factor Assmnt - Choose All That Apply Each Factor Represents 1 point: Hx of IBD, Obesity (BMI >25) Thrombosis Risk Factor Assessment Total Risk Factor Score: 2 Thrombosis Risk Factor Assessment Level: Low Risk Assessment and Plan Plan: Impression Present on admission abdominal pain nausea unclear etiology Sudden acute elevated liver enzymes unclear etiology History of Janice-en-Y gastric bypass 13 months prior Chronic constipation Present on admission leukocytosis unclear etiology Anxiety depressive disorder nonspecified Plan repeat the liver enzymes now follow up on results Continue recommendations by GI service IV hydration Bowel stimulant as ordered monitor the response DVT and GI prophylaxis Further recommendations pending Resume home meds as appropriate The above dictated assessment and findings were discussed with paolo Coronado and the plan of care have been dictated as directed. Jessie Garibay nurse practitioner acting as a scribe for dr Hilliard
[2016-12-08 15:43] LABS: INR 1.1 (<1.1); Prothrombin Time 10.7 sec (9.0-12.0)
--- NOTE | 2016-12-08 17:31 | MR ---
EXAMINATION TYPE: MR MRCP DATE OF EXAM: 12/08/2016 5:03 PM COMPARISON: NONE HISTORY: GASTRIC BYPASS 10/2015, IBS 06/2016, Severe Abdominal Pain for 2 weeks, Standard multiplanar, multisequence MRI departmental protocol Multiplanar, multisequence images of the abdomen were acquired. FINDINGS: Cholecystectomy is noted. The common bile duct measures up to 8 mm. I see no filling defect . There is normal appearance of the distal common bile duct. I see no dilation of the intrahepatic bi le ducts. The pancreas has normal size and contour. Pancreatic duct is not dilated. I see no focal li yudith defect. Spleen shows 2 less than 1 cm rounded high signal foci that are probably splenic cysts.. Kidneys have normal size and contour. There is no hydronephrosis. I see no sign of pleural effusion. There is no evidence of retroperitoneal adenopathy. There is no sign of ascites. IMPRESSION: Negative MRCP exam. Cholecystectomy noted. No dilated ducts. Common bile duct is normal size for jacinta ent after cholecystectomy. No evidence of an obstructing stone or lesion in the distal common bile du ct. There appears to be clearing of left pleural effusion compared to the CT scan of 12/06/2015.
--- NOTE | 2016-12-08 17:41 | US ---
EXAMINATION TYPE: US abdomen complete DATE OF EXAM: 12/08/2016 2:36 PM COMPARISON: CT abdomen 12/07/2016. CLINICAL HISTORY: . Nausea, vomiting, abdomen pain EXAM MEASUREMENTS: Liver Length: 14.1cm Gallbladder Wall: surgically absent CBD: 0.7cm Spleen: 9.7cm Right Kidney: 11.7 x 4.0 x 5.6cm Left Kidney: 10.9 x 5.6 x 4.7cm ANATOMY: TECHNOLOGIST IMPRESSION: Pancreas: Obscured by bowel gas Liver: heterogeneous Gallbladder: Surgically absent Evidence for sonographic Osman's sign: CBD: wnl Spleen: hyperechoic circular structure with peripheral vascularity measuring 1.1 x 1.0 x 1.1cm Right Kidney: wnl Left Kidney: wnl Upper IVC: wnl Abd Aorta: bifurcation obscured by bowel gas There is an echogenic focus within the spleen measuring 1 cm in diameter. Consider hemangioma within the differential. IMPRESSION: 1. Possible hemangioma within the spleen. Monitoring with ultrasound is recommended.
[2016-12-08 19:05] LABS: Bilirubin, Delta 0.4 mg/dL (0.0-0.2); Total Bilirubin 1.6 mg/dL (0.2-1.3)
[2016-12-08 19:27] LABS: Acetaminophen <10.0 ug/mL; Salicylate <1.0 mg/dL
[2016-12-09] MEDS: HYDROmorphone 1 MG/ML 1 ML SYRINGE IV PRN ×4 (02:46→22:13)
[2016-12-09] MEDS: ONDANSETRON 4 MG/2 ML VIAL IVP PRN ×3 (06:55→22:13)
[2016-12-09] MEDS: PANTOPRAZOLE 40 MG/10 ML VIAL IV SCH (08:08)
[2016-12-09] MEDS: SODIUM CHLORIDE 0.9% 1,000 ML IV SCH ×3 (08:09→22:38)
[2016-12-09 08:46] LABS: Basophils # (A) 0.1 k/uL (0-0.2); Basophils % (A) 1 %; CH 29.4; CHCM 32.1; Eosinophils # (A) 0.3 k/uL (0-0.7); Eosinophils % (A) 5 %; HCT 41.8 % (34.0-46.0); HDW 2.33; HGB 13.4 gm/dL (11.4-16.0); Luc # (Auto) 0.09; Luc % (Auto) 1; Lymphocytes # (A) 2.5 k/uL (1.0-4.8); Lymphocytes % (A) 36 %; MCH 29.4 pg (25.0-35.0); MCHC 31.9 g/dL (31.0-37.0); Mean Platelet Volume 7.6; Monocytes # (A) 0.4 k/uL (0-1.0); Monocytes % (A) 5 %; Neutrophils # (A) 3.6 k/uL (1.3-7.7); Neutrophils % (A) 52 %; RBC 4.55 m/uL (3.80-5.40); RDW 13.1 % (11.5-15.5); WBC 6.9 k/uL (3.8-10.6); WBC (Perox) 6.91
[2016-12-09 09:18] LABS: ALT 709 U/L (9-52); AST 591 U/L (14-36); Alkaline Phosphatase 153 U/L (38-126); Anion Gap 9 mmol/L; Blood Urea Nitrogen 11 mg/dL (7-17); Calcium 8.5 mg/dL (8.4-10.2); Carbon Dioxide 29 mmol/L (22-30); Chloride 104 mmol/L (98-107); Glucose 78 mg/dL (74-99); Non-African American GFR(MDRD) >60 (>60 ml/min/1.73 sqM); Potassium 4.3 mmol/L (3.5-5.1); Sodium 142 mmol/L (137-145); Total Bilirubin 2.1 mg/dL (0.2-1.3); Total Protein 6.1 g/dL (6.3-8.2)
--- NOTE | 2016-12-09 09:26 | P.PN ---
Subjective Principal diagnosis: abdominal pain elevated liver enzymes 41-year-old female with a history of cholecystectomy and Gerson-en-Y gastric bypass admitted with abdominal pain and subsequent elevation of liver enzymes. Ultrasound, CT, and MRCP did not identify dilation of intra-or extrahepatic biliary ducts. No evidence of gallstones. Transaminases slightly improved. Total bilirubin last night 1.6. Unconjugated 1.2. Still reports mild upper abdominal discomfort. Afebrile. Scheduled for diagnostic surgery today for suspected partial small bowel obstruction/dilated Gerson limb per CT. Objective - Vital Signs Vital signs: Vital Signs Temp 97.1 F L 12/09/16 07:00 Pulse 69 12/09/16 07:00 Resp 16 12/09/16 07:00 BP 118/75 12/09/16 07:00 Pulse Ox 97 12/09/16 07:00 Intake & Output 12/08/16 12/09/16 12/09/16 18:59 06:59 18:59 Other: Voiding Method Toilet # Voids 1 1 # Bowel Movements 1 - Exam General appearance: The patient is alert, oriented, in no acute distress. HET: Head is normocephalic and atraumatic. Pupils are equal and reactive. Oropharynx is clear without lesions. Neck: Supple without lymphadenopathy. Trachea midline. Heart: S1 S2. Regular rate and rhythm. Lungs: No crackles or wheezes are heard. Abdomen: Soft, very mild midepigastric tenderness, nondistended with bowel sounds. No peritoneal signs. No palpable organomegaly or masses. Extremities: Normal skin color and turgor. No cyanosis, rash, ulceration, clubbing, or edema. Radial and pedal pulses are 2/4 bilaterally. Neurological: No focal deficits. Strength and sensation are grossly intact. - Labs CBC & Chem 7: 12/09/16 08:19 12/08/16 12:59 Labs: Abnormal Lab Results - Last 24 Hours (Table) 12/08/16 12/08/16 12/08/16 Range/Units 09:52 09:52 12:59 Chloride 108 H (98-107) mmol/L Glucose 101 H 130 H (74-99) mg/dL Calcium 8.2 L 8.2 L (8.4-10.2) mg/dL Total Bilirubin 1.4 H (0.2-1.3) mg/dL Unconjugated Bilirubin (0.0-1.1) mg/dL Delta Bilirubin (0.0-0.2) mg/dL AST 1418 H 2160 H (14-36) U/L ALT 613 H 1025 H (9-52) U/L Alkaline Phosphatase 151 H (38-126) U/L Total Protein 5.9 L 6.1 L (6.3-8.2) g/dL Albumin 3.2 L 3.4 L (3.5-5.0) g/dL Amylase <30 L (30-110) U/L 12/08/16 Range/Units 18:34 Chloride (98-107) mmol/L Glucose (74-99) mg/dL Calcium (8.4-10.2) mg/dL Total Bilirubin 1.6 H (0.2-1.3) mg/dL Unconjugated Bilirubin 1.2 H (0.0-1.1) mg/dL Delta Bilirubin 0.4 H (0.0-0.2) mg/dL AST 1347 H (14-36) U/L ALT 999 H (9-52) U/L Alkaline Phosphatase 165 H (38-126) U/L Total Protein 6.0 L (6.3-8.2) g/dL Albumin 3.4 L (3.5-5.0) g/dL Amylase (30-110) U/L Assessment and Plan (1) Elevated liver enzymes Narrative/Plan: 41-year-old female admitted with 1 day history of acute upper abdominal pain with nausea vomiting constipation with history of Gerson-en-Y gastric bypass with CT imaging suggestive of partial small bowel obstruction with acute transaminitis of unclear etiology. She has a history of cholelithiasis and cholecystectomy more than 20 years ago. Elevated transaminases and mild hyperbilirubinemia is felt to be related to passage of choledocholithiasis even though radiographic imaging failed to yield any retained CBD stone or dilated ducts. Medication induced transaminitis felt to be less likely. Status: Acute (2) History of Gerson-en-Y gastric bypass Status: Acute (3) Abdominal pain Status: Acute Plan: 1. Supportive measures and monitoring of liver function tests. 2. Patient is scheduled for surgery today with Dr. Hilliard. 3. Will follow closely with you. Assessment and plan a care discussed with Dr. Parsons.
[2016-12-09] MEDS ORDERED: IV FLUID CONTINUATION 1,000 ML IV ONE (12:25)
[2016-12-09] MEDS ORDERED: SCOPOLAMINE 1.5MG/72HR PATCH TRANSDERM STA (12:31)
[2016-12-09] MEDS ORDERED: HEPARIN SODIUM,PORCINE 5,000 UNIT/ML 1 ML VIAL SQ ONE (12:53)
--- NOTE | 2016-12-09 12:57 | P.PN ---
Subjective Principal diagnosis: Abdominal pain 41 yrs old female with diffuse abdominal pain on and off. Prior history of Gerson -en-Y gastric bypass. Computed tomography scan showed possible small bowel obstruction. Patient has chronic constipation. She had bowel movements after enemas. Still complains of abdominal pain, diffuse in nature. Elevated LFTs with markedly elevation of AST and ALT. LFTs are trending down. No signs of jaundice. Prior history of cholecystectomy. Ultrasound and MRCP within normal limits Objective - Vital Signs Vital signs: Vital Signs Temp 98.4 F 12/09/16 12:23 Pulse 61 12/09/16 12:23 Resp 18 12/09/16 12:23 BP 132/80 12/09/16 12:23 Pulse Ox 98 12/09/16 12:23 Intake & Output 12/08/16 12/09/16 12/09/16 18:59 06:59 18:59 Other: Voiding Method Toilet Toilet # Voids 1 1 # Bowel Movements 1 - Exam General: Patient is alert and oriented to time, place and person and cooperative with exam. HEENT: No pallor, no icterus Chest: Bilateral equal breath sounds present. No wheezes, no crackles. Cardiovascular: Regular rate and rhythm. Abdomen: Soft, tenderness on deep palpation. No ami peritonitis. Neurologic: Cranial nerves II-XII intact. Strength upper and lower extremities 5/5. No focal neurologic deficits. Gait is normal. - Labs CBC & Chem 7: 12/09/16 08:19 12/09/16 08:19 Labs: Abnormal Lab Results - Last 24 Hours (Table) 12/08/16 12/08/16 12/09/16 Range/Units 12:59 18:34 08:19 Glucose 130 H (74-99) mg/dL Calcium 8.2 L (8.4-10.2) mg/dL Total Bilirubin 1.4 H 1.6 H 2.1 H (0.2-1.3) mg/dL Unconjugated Bilirubin 1.2 H (0.0-1.1) mg/dL Delta Bilirubin 0.4 H (0.0-0.2) mg/dL AST 2160 H 1347 H 591 H (14-36) U/L ALT 1025 H 999 H 709 H (9-52) U/L Alkaline Phosphatase 151 H 165 H 153 H (38-126) U/L Total Protein 6.1 L 6.0 L 6.1 L (6.3-8.2) g/dL Albumin 3.4 L 3.4 L 3.4 L (3.5-5.0) g/dL Assessment and Plan (1) Abdominal pain Status: Acute (2) Elevated liver enzymes Status: Acute (3) History of Gerson-en-Y gastric bypass Status: Acute (4) Chronic constipation Status: Acute Plan: Diagnostic laparoscopy, possible open possible revision of j-j anastomois Informed consent obtained and patient elected to undergo the procedure. Bilateral SCDs Heparin 5000 units subcu injection 1.
[2016-12-09] MEDS ORDERED: fentaNYL (PF) 50 MCG/ML 2 ML AMP ONE (13:10)
[2016-12-09] MEDS ORDERED: ROCURONIUM BROMIDE 10 MG/ML 10 ML VIAL IV ONE (13:10)
[2016-12-09] MEDS ORDERED: NEOSTIGMINE 1 MG/ML 10 ML VIAL ONE (13:10)
[2016-12-09] MEDS ORDERED: PROPOFOL 10 MG/ML 20 ML VIAL IV ONE (13:10)
[2016-12-09] MEDS ORDERED: GLYCOPYRROLATE 0.2 MG/ML 2 ML VIAL ONE (13:10)
[2016-12-09] MEDS ORDERED: MIDAZOLAM 2 MG/2 ML VIAL ONE (13:10)
[2016-12-09] MEDS ORDERED: ePHEDrine 50 MG/ML 1 ML AMP ONE (13:10)
[2016-12-09] MEDS ORDERED: ceFAZolin 1,000 MG VIAL ONE (13:10)
[2016-12-09] MEDS ORDERED: LIDOCAINE 1% INJ 10MG/ML (20 ML MDV) ONE (13:10)
[2016-12-09] MEDS ORDERED: SUCCINYLCHOLINE CHLORIDE 100 MG/5 ML SYR IV ONE (13:10)
[2016-12-09] MEDS ORDERED: SODIUM CHLORIDE 0.9% 50 ML with ceFAZolin 2,000 MG IV ONE ×2 (13:40)
[2016-12-09] MEDS ORDERED: BUPIVACAIN-EPI 0.25%-1:200,000 30 ML VIAL SQ ONE ×2 (13:45)
[2016-12-09] MEDS ORDERED: LACTATED RINGERS 1,000 ML IV ONE (14:15)
--- NOTE | 2016-12-09 15:01 | P.OP ---
Date of Procedure: 12/09/16 Preoperative Diagnosis: Chronic abdominal pain status post Gerson-en-Y gastric bypass Postoperative Diagnosis: Same Procedure(s) Performed: Diagnostic laparoscopy Laparoscopic lysis of adhesions for 30 minutes Implants: NA Anesthesia: ELLA Surgeon: No Hilliard Threshing Operator #1: Sara Rhodes Estimated Blood Loss (ml): 5 Pathology: none sent Condition: other (ASA 2) Disposition: PACU Indications for Procedure: 41 years old female presents with intermittent history of abdominal pain which is described as severe. Patient also has chronic constipation, irritable bowel syndrome and fibromyalgia. Informed consent was obtained from the patient after explaining the risks, benefits and potential complications and she elected to undergo diagnostic laparoscopy possible open and all indicated procedures. Operative Findings: No internal hernia. No bowel obstruction. Adhesions between the Gerson limb and anterior abdominal wall which were taken down using sharp dissection. The Ames defect was small. Prior sutures was seen and was reinforced with another 2-0 silk stitch Description of Procedure: The patient was brought to the operating room and placed in split leg position. Gen. anesthesia was given as per anesthesia team. Chlorhexidine was used to prep the skin. Sterile Taylor catheter was inserted. Ioban was applied followed by sterile drapes. A timeout was performed to verify correct patient and correct procedure. A 5 mm skin incision was made in the left subcostal area and a Veress needle inserted and pneumoperitoneum established to a pressure of 15 mmHg. A 5 mm 30 Optiview camera was loaded and a 5 mm 30 laparoscope and the peritoneal cavity was directly entered. Additional 5 mm trocar was placed in the right upper quadrant, 12 mm trocar in the supraumbilical location and 5 mm trocar in the left upper quadrant. There were omental and Gerson limb adhesions to the anterior abdominal wall which was taken down using combination of sharp dissection and laparoscopic LigaSure device. The gastrojejunostomy anastomosis was clearly identified. The Gerson limb was run to the jejunojejunal anastomosis. The BP limb was identified and run backwards to was the ligament of Treitz. No obstruction noted. The common limb was run from terminal ileum to which the jejunojejunal anastomosis. No obstruction identified. Multiple flimsy adhesion bands noted which were sharply lysed. The Ames defect was checked. It had a small opening and prior sutures. This was reinforced with another figure of 8 suture of 2-0 silk and the defect was completely closed. No additional abnormality identified. Patient tolerated the procedure well. The 12 mm trocar site was closed with single trans-fascial sutures of 0 Vicryl. The sponge, instrument and needle count were correct 2. Patient tolerated the procedure well and was taken to post anesthesia care unit in stable condition
[2016-12-09] MEDS: HYDROmorphone 1 MG/ML 1 ML SYRINGE IVP ONE ×2 (15:27→15:34)
[2016-12-09] MEDS ORDERED: KETOROLAC 30 MG/ML 1 ML VIAL IVP ONE (15:28)
[2016-12-09] MEDS: ACETAMINOPHEN IV (For NPO) 1,000 MG in EMPTY BAG 1 BAG IVPB SCH ×2 (17:53→23:48)
[2016-12-10] MEDS: HYDROmorphone 1 MG/ML 1 ML SYRINGE IV PRN ×3 (03:41→10:07)
[2016-12-10] MEDS: ACETAMINOPHEN IV (For NPO) 1,000 MG in EMPTY BAG 1 BAG IVPB SCH (05:32)
[2016-12-10] MEDS: ONDANSETRON 4 MG/2 ML VIAL IVP PRN (06:49)
[2016-12-10 07:27] VITALS: PULSE 61
[2016-12-10] MEDS: PANTOPRAZOLE 40 MG/10 ML VIAL IV SCH (08:13)
[2016-12-10] MEDS: SODIUM CHLORIDE 0.9% 1,000 ML IV SCH (08:14)
[2016-12-10 09:25] LABS: Basophils % (A) 0 %; CH 29.2; CHCM 32.4; Eosinophils # (A) 0.1 k/uL (0-0.7); Eosinophils % (A) 2 %; HCT 41.5 % (34.0-46.0); HDW 2.23; HGB 12.8 gm/dL (11.4-16.0); Luc # (Auto) 0.13; Luc % (Auto) 2; Lymphocytes # (A) 2.8 k/uL (1.0-4.8); Lymphocytes % (A) 35 %; MCHC 30.9 g/dL (31.0-37.0); MCV 90.6 fL (80.0-100.0); Monocytes # (A) 0.3 k/uL (0-1.0); Monocytes % (A) 4 %; Neutrophils # (A) 4.7 k/uL (1.3-7.7); Neutrophils % (A) 58 %; RBC 4.58 m/uL (3.80-5.40); RDW 12.8 % (11.5-15.5); WBC 8.1 k/uL (3.8-10.6); WBC (Perox) 8.08
[2016-12-10 09:31] LABS: ALT 396 U/L (9-52); AST 146 U/L (14-36); Alkaline Phosphatase 122 U/L (38-126); Anion Gap 9 mmol/L; Blood Urea Nitrogen 11 mg/dL (7-17); Calcium 8.5 mg/dL (8.4-10.2); Carbon Dioxide 26 mmol/L (22-30); Chloride 102 mmol/L (98-107); Glucose 102 mg/dL (74-99); Non-African American GFR(MDRD) >60 (>60 ml/min/1.73 sqM); Potassium 4.2 mmol/L (3.5-5.1); Sodium 137 mmol/L (137-145); Total Bilirubin 1.6 mg/dL (0.2-1.3); Total Protein 5.8 g/dL (6.3-8.2)
[2016-12-10] MEDS ORDERED: HYDROcodone/APAP 7.5-325MG 1 EACH TAB PO PRN (10:42)
[2016-12-10] MEDS ORDERED: ONDANSETRON 4 MG TAB PO PRN (10:44)
[2016-12-10] MEDS ORDERED: PANTOPRAZOLE 40 MG TABLET PO SCH (10:45)
[2016-12-10] MEDS ORDERED: ACETAMINOPHEN IV (For NPO) 1,000 MG in EMPTY BAG 1 BAG IVPB SCH (12:00)
--- NOTE | 2016-12-10 12:24 | P.PN ---
Subjective Principal diagnosis: abdominal pain elevated liver enzymes 41-year-old female with a history of cholecystectomy and Gerson-en-Y gastric bypass admitted with abdominal pain and subsequent elevation of liver enzymes. Ultrasound, CT, and MRCP did not identify dilation of intra-or extrahepatic biliary ducts. No evidence of gallstones. Transaminases improved yesterday. Afebrile. Status post diagnostic laparoscopy with lysis of adhesions yesterday. Tolerating bariatric for liquid diet. Abdominal pain improved. Objective - Vital Signs Vital signs: Vital Signs Temp 97.5 F L 12/10/16 07:00 Pulse 61 12/10/16 07:00 Resp 20 12/10/16 07:00 BP 115/75 12/10/16 07:00 Pulse Ox 97 12/10/16 07:00 Intake & Output 12/09/16 12/10/16 12/10/16 18:59 06:59 18:59 Intake Total 1600 625 Output Total 355 Balance 1245 625 Intake: IV 1600 Oral 0 625 Output: Urine 350 Estimated Blood Loss 5 Other: Voiding Method Toilet # Voids 1 1 - Exam General appearance: The patient is alert, oriented, in no acute distress. HET: Head is normocephalic and atraumatic. Pupils are equal and reactive. Oropharynx is clear without lesions. Neck: Supple without lymphadenopathy. Trachea midline. Heart: S1 S2. Regular rate and rhythm. Lungs: No crackles or wheezes are heard. Abdomen: Soft, laparoscopic incisions without erythema or drainage, nondistended with bowel sounds. No peritoneal signs. No palpable organomegaly or masses. Extremities: Normal skin color and turgor. No cyanosis, rash, ulceration, clubbing, or edema. Radial and pedal pulses are 2/4 bilaterally. Neurological: No focal deficits. Strength and sensation are grossly intact. - Labs CBC & Chem 7: 12/10/16 08:06 12/10/16 08:06 Labs: Abnormal Lab Results - Last 24 Hours (Table) 12/10/16 12/10/16 Range/Units 08:06 08:06 MCHC 30.9 L (31.0-37.0) g/dL Glucose 102 H (74-99) mg/dL Total Bilirubin 1.6 H (0.2-1.3) mg/dL AST 146 H (14-36) U/L ALT 396 H (9-52) U/L Total Protein 5.8 L (6.3-8.2) g/dL Albumin 3.2 L (3.5-5.0) g/dL Assessment and Plan (1) Elevated liver enzymes Narrative/Plan: 41-year-old female admitted with 1 day history of acute upper abdominal pain with nausea vomiting constipation with history of Gerson-en-Y gastric bypass with CT imaging suggestive of partial small bowel obstruction with acute transaminitis of unclear etiology. She has a history of cholelithiasis and cholecystectomy more than 20 years ago. Elevated transaminases and mild hyperbilirubinemia is felt to be related to passage of choledocholithiasis even though radiographic imaging failed to yield any retained CBD stone or dilated ducts. Medication induced transaminitis felt to be less likely. Status: Acute (2) History of Gerson-en-Y gastric bypass Status: Acute (3) Abdominal pain Narrative/Plan: Status post diagnostic laparoscopy and lysis of adhesions Status: Acute (4) Chronic constipation Status: Chronic Plan: 1. Agreeable for discharge. Senokot-S 2 tablets daily, may increase to 2 tablets twice daily for constipation. 2. Follow-up with general surgery and primary care physician as directed. Recommend repeat liver function tests within a week of discharge. Assessment and plan a care discussed with Dr. Parsons.
[2016-12-10 14:51] VITALS: BP 99/61; RESP 18; TEMP 98.8
--- NOTE | 2016-12-10 16:01 | P.DS ---
Providers Date of admission: 12/07/16 23:36 Attending physician: No Hilliard Primary care physician: Aneudy Díaz Patient Condition at Discharge: Serious Plan - Discharge Summary New Discharge Prescriptions: Sennosides-Docusate Sodium [Senokot-S] 2 tab PO DAILY #60 tablet Discharge Medication List Citalopram Hydrobromide [CeleXA] 40 mg PO DAILY 04/15/14 [History] Biotin 5 mg PO DAILY 04/29/16 [History] Polyethylene Glycol 3350 [Miralax] 17 gm PO DAILY 10/08/16 [History] Inulin/Chromium Picolinate [Fiber Gummies Chew] 1 tab PO BID 10/14/16 [History] Bariatric Calcium 1 tab PO TID 12/07/16 [History] Bariatric Multivitamin 1 tab PO BID 12/07/16 [History] Sennosides-Docusate Sodium [Senokot-S] 2 tab PO DAILY #60 tablet 12/10/16 [Rx] Follow up Appointment(s)/Referral(s): Aneudy Díaz DO [Primary Care Provider] - 1-2 days Ambulatory/Diagnostic Orders: Comprehensive Metabolic Panel [LAB.AMB] Time Frame: 1 Week, Location: Determined By Patient Activity/Diet/Wound Care/Special Instructions: Senokot-S 2 tablets daily may increase to 2 tablets twice a day as needed for chronic constipation.
[2016-12-10] MEDS ORDERED: NON-FORMULARY DRUG (Inulin/Chromium Picolinate [Fiber Gummies Chew] 1 TAB) PO SCH (21:00)
[2016-12-10] MEDS ORDERED: MULTIVITAMINS, THERA 1 EACH TAB PO SCH (21:00)
[2016-12-11] MEDS ORDERED: PANTOPRAZOLE 40 MG TABLET PO SCH (07:30)
[2016-12-11] MEDS ORDERED: NON-FORMULARY DRUG (Biotin [Biotin] 5 MG) PO SCH (09:00)
[2016-12-11] MEDS ORDERED: CITALOPRAM HYDROBROMIDE 20 MG TAB PO SCH (09:00)
[2016-12-11] MEDS ORDERED: POLYETHYLENE GLYCOL 3350 17 GM POWD.PACK PO SCH (09:00)
== END 2016-12-10 20:02 | disposition home or self-care (01) | DRG 425 ==
LOC: EC 21:05 → 4MS4W 23:36
PROVIDERS: ADMIT Surgery; ATTEND Surgery
PROC: 0DNA4ZZ Release Jejunum, Percutaneous Endoscopic Approach (ICD-10-PCS; principal; 2016-12-09 11:45)
DX: K80.50 Calculus of bile duct without cholangitis or cholecystitis without obstruction (principal); I10 Essential (primary) hypertension; F32.9 Major depressive disorder, single episode, unspecified; E11.9 Type 2 diabetes mellitus without complications; E78.5 Hyperlipidemia, unspecified; F41.9 Anxiety disorder, unspecified; F43.10 Post-traumatic stress disorder, unspecified; G47.33 Obstructive sleep apnea (adult) (pediatric); G89.29 Other chronic pain; K21.9 Gastro-esophageal reflux disease without esophagitis; K58.1 Irritable bowel syndrome with constipation; K66.0 Peritoneal adhesions (postprocedural) (postinfection); M19.90 Unspecified osteoarthritis, unspecified site; M79.7 Fibromyalgia; Z98.84 Bariatric surgery status; Z82.49 Family history of ischemic heart disease and other diseases of the circulatory system; Z86.19 Personal history of other infectious and parasitic diseases; Z79.899 Other long term (current) drug therapy; Z88.2 Allergy status to sulfonamides; Z88.8 Allergy status to other drugs, medicaments and biological substances
CPT/HCPCS: 36415; 74020; 74177; 74181; 76700; 80053; 80061; 80074; 80076; 81025; 82150; 83520; 83690; 85025; 85610; 96361; 96374; 96375; 99285

== ENCOUNTER → 2016-12-21 | Outpatient (CLI) | payer OTHER ==
[2016-12-21 08:47] LABS: Basophils % (A) 0 %; CH 29.3; CHCM 32.8; Eosinophils # (A) 0.3 k/uL (0-0.7); Eosinophils % (A) 4 %; HCT 40.8 % (34.0-46.0); HDW 2.25; HGB 13.1 gm/dL (11.4-16.0); Luc # (Auto) 0.18; Luc % (Auto) 2; Lymphocytes # (A) 3.1 k/uL (1.0-4.8); Lymphocytes % (A) 41 %; MCH 28.7 pg (25.0-35.0); MCV 89.7 fL (80.0-100.0); Mean Platelet Volume 6.6; Monocytes # (A) 0.4 k/uL (0-1.0); Monocytes % (A) 6 %; Neutrophils # (A) 3.5 k/uL (1.3-7.7); Neutrophils % (A) 47 %; RBC 4.55 m/uL (3.80-5.40); RDW 12.8 % (11.5-15.5); WBC 7.6 k/uL (3.8-10.6); WBC (Perox) 7.92
[2016-12-21 10:43] LABS: ALT 61 U/L (9-52); AST 31 U/L (14-36); Alkaline Phosphatase 83 U/L (38-126); Anion Gap 10 mmol/L; Blood Urea Nitrogen 15 mg/dL (7-17); Calcium 9.4 mg/dL (8.4-10.2); Carbon Dioxide 27 mmol/L (22-30); Chloride 105 mmol/L (98-107); Glucose 89 mg/dL (74-99); Non-African American GFR(MDRD) >60 (>60 ml/min/1.73 sqM); Potassium 4.1 mmol/L (3.5-5.1); Sodium 142 mmol/L (137-145); Total Bilirubin 1.1 mg/dL (0.2-1.3); Total Protein 6.7 g/dL (6.3-8.2)
[2016-12-21 11:34] LABS: Vitamin B12 935 pg/mL (239-931)
== END | disposition home or self-care (01) ==
LOC: LABWHC1 07:59
PROVIDERS: ATTEND Nurse Practitioner
DX: G35 Multiple sclerosis (principal); K75.9 Inflammatory liver disease, unspecified
CPT/HCPCS: 36415; 80053; 82306; 82607; 84439; 84443; 84481; 85025

== ENCOUNTER → 2017-01-26 | Outpatient (CLI) | payer OTHER ==
--- NOTE | 2017-01-26 22:51 | PN ---
This is a 41-year-old female patient previous history of symptomatic obstructive sleep apnea and the patient has undergone gastric bypass surgery with significant weight loss. The patient has lost approximately 80 to 100 pounds since she underwent bariatric surgery. She is coming in for a follow-up. She is not using his CPAP machine. Note that the original pressure was set at a pressure of 15 cm of water. I saw this patient approximately a year ago. As long as she was still losing weight I asked her to hold off any further evaluation and once her weight plateaus, we will consider a reevaluation assess the presence of residual obstructive sleep apnea. In follow-up, the patient is doing well. She tells me that got diagnosed with multiple sclerosis and she has not been started on treatment yet. She is a diabetic and her comorbid conditions include fibromyalgia and migraine. She has also degenerative arthritis of her spine. The patient has no specific complaints. She is very much insistent in having a re-evaluation to see if there is any treatment needed for her obstructive sleep apnea. PAST MEDICAL HISTORY: Obstructive sleep apnea, obesity, MS, gastric bypass surgery, diabetes mellitus, fibromyalgia, migraines and degenerative arthritis. Her current vitals: BP is 131/71, pulse 55, respirations 16, temperature 97.7, saturation 98% on room air. [place] score is 19. Weight is 187. Height is 62 inches. BMI is 34.2. GENERAL APPEARANCE: Calm, comfortable. HEENT: Short neck, crowding of the posterior pharynx. There is no goiter, neck masses. LUNGS: Clear to auscultation. HEART: Sounds are regular rate and rhythm. Normal S1, S2. ABDOMEN: Soft, nontender. No organomegaly. EXTREMITIES: No edema. No cyanosis or clubbing. IMPRESSION: 1. His obstructive sleep apnea, status post significant weight loss in order of 100 pounds for a follow in the bariatric surgery. The patient is unable to tolerate the CPAP machine and she is on no treatment for now. She is coming in for re-evaluation. 2. Increased fatigue and hypersomnia. Rule out the residual obstructive sleep apnea. [place] score is at 19. 3. Obesity with a significant weight loss post bariatric surgery. 4. Diabetes mellitus. 5. Migraine. 6. Fibromyalgia. 7. Multiple sclerosis. 8. Degenerative arthritis of the spine. PLAN: We will reinvestigate this patient. Will proceed with another screening polysomnogram to assess the presence of any residual obstructive sleep apnea that was needs any further treatment. If so, treatment will be offered for this patient. Will continue to follow and make further recommendations accordingly.
== END | disposition home or self-care (01) ==
LOC: SLEEP 16:25
PROVIDERS: ATTEND Internal Medicine Critical Care Medicine
DX: G47.33 Obstructive sleep apnea (adult) (pediatric) (principal); G47.10 Hypersomnia, unspecified; E66.9 Obesity, unspecified; Z68.34 Body mass index [BMI] 34.0-34.9, adult; Z98.84 Bariatric surgery status; E11.9 Type 2 diabetes mellitus without complications; G43.909 Migraine, unspecified, not intractable, without status migrainosus; M79.7 Fibromyalgia; G35 Multiple sclerosis; M47.9 Spondylosis, unspecified

== ENCOUNTER → 2017-02-24 | Outpatient (CLI) | payer OTHER ==
[2017-02-24 13:31] VITALS: BP 114/75; PULSE 68; RESP 16; TEMP 98.5; BMI 33.6
--- NOTE | 2017-03-19 18:26 | P.PN ---
Progress Note - Text DATE OF SERVICE: 02/24/2017 CHIEF COMPLAINT: Panniculitis. HISTORY OF PRESENT ILLNESS: Jes Dhaliwal is a 41-year-old female who is over 1-1/2 years out from a Gerson-en-Y gastric bypass on 11/10/[address] Hilliard. She has been treated for panniculitis for 1-1/2 going on 2 years. Separately, she had concern for breast reduction which she states had been denied by her insurance company. She reports using antifungal cream for her skin also for well over a year to try to help control her symptoms. She reports increased lower back pain as result of her pannus. At her height of 5 foot 2-1/2 inches, her ideal body weight is 135 pounds. Her highest weight was 284 pounds. Today she comes in weighing 187 pounds. She has maintained 97 pound weight loss. Since her last evaluation 4 months ago she has actually gained about 5 pounds. Percent of weight loss is 55%. Body mass index is reduced from 51.2 down to 33.7. BMI point reduction is 17.6. She is overweight by 52 pounds. PAST MEDICAL HISTORY: 1. Morbid obesity. 2. Prior history of insulin-dependent diabetes. 3. Gastroesophageal reflux disease. 4. Posttraumatic stress disorder. 5. Anxiety. 6. Depression. 7. Panniculitis. PAST SURGICAL HISTORY: 1. Status post Gerson-en-Y gastric bypass. 2. Upper endoscopy. 3. Diagnostic laparoscopy. MEDICATIONS: 1. Senokot. 2. Antivert. 3. Aricept. 4. Celexa. 5. Fioricet. 6. Biotin. 7. Multivitamin. 8. Nystatin cream. ALLERGIES: 1. PREGABALIN. 2. PREDNISONE. 3. SULFA. SOCIAL HISTORY: Lifelong nontobacco user. No alcohol or tobacco abuse. FAMILY HISTORY: Pertinent for diabetes including morbid obesity. REVIEW OF SYSTEMS: MUSCULOSKELETAL: Increased lower back pain secondary to overall size of pannus and panniculitis. GASTROINTESTINAL: Previous history of gastroesophageal reflux disease, resolved. Her chronic constipation including bowel obstruction, which was addressed within the last 3 months. CONSTITUTIONAL: Highest weight 294.4 pounds. At her height of 5 foot 2-1/2 inches, her ideal body weight is 135 pounds. Her highest weight was 294.4 pounds. Today she comes in weighing 187 pounds. She has maintained 97 pound weight loss. Since her last evaluation 4 months ago she has actually gained about 5 pounds. Percent of weight loss is 55%. Body mass index is reduced from 51.2 down to 33.7. BMI point reduction is 17.6. She is overweight by 52 pounds. HEENT: No reports of troubles with vision or hearing. No dysphagia. ENDOCRINE: Diabetes type 2 resolved. No reports of active thyroid disorder. RESPIRATORY: History of obstructive sleep apnea now improved and resolved. CARDIOVASCULAR: Hypertension, resolved. No reports of hypercholesterolemia. PSYCH: History of posttraumatic stress disorder including anxiety. HEMATOLOGIC: No reports of easy bruising or bleeding. PHYSICAL EXAM: VITAL SIGNS: 98.5, 68, 16, 114/75, 5 feet 2-1/2 inches, 187 pounds. Body mass index 33.7. ABDOMEN: Moderate-sized pannus between 5 to 10 pounds. Pannus extends over pubis by over 6 cm with hyperemia consistent with panniculitis. No large incarcerated hernias identified. GENERAL: Well-developed female in no acute distress. HEENT: No sclera icterus. Extraocular movements grossly intact. Moist buccal mucosa. Head is atraumatic, normocephalic. Hears conversational speech. No nasal drainage. NECK: Supple without lymphadenopathy. No JV distention. CHEST: Non-labored respirations and equal bilateral excursions. CARDIOVASCULAR: Regular rate and rhythm. Palpable 2+ radial pulses. MUSCULOSKELETAL: No clubbing, cyanosis or edema. NEUROLOGIC: No focal or lateralizing signs. PSYCH: Appropriate affect. Alert and oriented to person, place and time. LABS: Previous hemoglobin of 13.1. Magnesium was 1.9. Phosphorus was elevated at 5.7. Iron was normal at 60. ALT was elevated at 61. Vitamin B12 was elevated at 935. Thyroid-stimulating hormone was suppressed at 0.31. Free T3 was decreased to 2.7. STUDIES: Abdominal ultrasound was obtained with findings consistent with hemangioma of the spleen. Sleep study reviewed demonstrating complete resolution of obstructive sleep apnea. ASSESSMENT: 1. Morbid obesity due to excess calories, resolved. 2. Body mass index reduced from 51.2 down to 33.7. 3. Status post Gerson-en-Y gastric bypass. 4. History of massive weight loss of 97 pounds. 5. History of recurrent panniculitis. 6. History of splenic hemangioma. 7. Chronic constipation. 8. Dietary surveillance and counseling. 9. History of macromastia. 10. Obesity. PLAN: 1. She has had long-standing symptoms consistent with panniculitis. Despite topical treatments she still has persistent symptoms. Recommend a panniculectomy. 2. For her pain management, recommend consultation with pain services prior to proceeding with a panniculectomy. 3. Anticipated inpatient hospitalization overnight. 4. A panniculectomy packet was given to her with complete review. 5. Risk of panniculectomy including bleeding, infection, flap failure, abdominal wall seroma and need for drains are also reviewed. 6. Deep venous thrombosis prophylaxis. 7. Antibiotic prophylaxis.
== END | disposition home or self-care (01) ==
LOC: BARWHC3 12:47
PROVIDERS: ATTEND Surgery Plastic and Reconstructive Surgery
DX: Z48.815 Encounter for surgical aftercare following surgery on the digestive system (principal); E66.9 Obesity, unspecified; Z68.33 Body mass index [BMI] 33.0-33.9, adult; Z98.84 Bariatric surgery status; M79.3 Panniculitis, unspecified; D18.09 Hemangioma of other sites; K59.09 Other constipation; Z87.898 Personal history of other specified conditions; Z79.899 Other long term (current) drug therapy; Z88.8 Allergy status to other drugs, medicaments and biological substances; Z88.2 Allergy status to sulfonamides; F41.9 Anxiety disorder, unspecified; F32.9 Major depressive disorder, single episode, unspecified; F43.10 Post-traumatic stress disorder, unspecified
CPT/HCPCS: 99211

== ENCOUNTER → 2017-03-23 | Outpatient (CLI) | payer OTHER ==
--- NOTE | 2017-03-23 12:20 | PN ---
Letitia is 41, coming in to discuss the results of the sleep study. As mentioned earlier, the patient was morbidly obese and she lost more than 100 pounds after undergoing gastric bypass surgery. She is doing well. No specific complaints for now. She has fibromyalgia and chronic fatigue and she is also diabetic. Her sleep study was conducted on 02/10/2017 and the patient was found to have no significant sleep breathing disorder and the AHI was less than 5. The patient had no nocturnal oxygen desaturations. I discussed the findings with the patient. I reassured her and I told her that there is no need for any further testing at this point. Temperature was 97.9. Pulse is 80, respirations 17. BP is 112/76, saturation 97% on room air. BMI is 34.4. Weight is 187. GENERAL APPEARANCE: Calm, comfortable. HEENT: Negative for JVD. There is no goiter or neck masses. LUNGS: Clear to auscultation. HEART: Heart sounds are regular rate and rhythm. Normal S1, S2. ABDOMEN: Soft, nontender. No organomegaly. EXTREMITIES: No edema, no cyanosis or clubbing. IMPRESSION: 1. Snoring without any significant sleep breathing disorder. Apnea-hypopnea index is less than 5. 2. Morbid obesity, status post bypass with successful weight loss. 3. Chronic fatigue. 4. Diabetes. 5. Fibromyalgia. 6. Multiple sclerosis. 7. Osteoarthritis. PLAN: 1. No need for CPAP therapy at this point. 2. Implement good sleep hygiene measures. 3. See me back on an as-needed basis.
== END | disposition home or self-care (01) ==
LOC: SLEEP 10:14
PROVIDERS: ATTEND Internal Medicine Critical Care Medicine
DX: G47.33 Obstructive sleep apnea (adult) (pediatric) (principal); Z98.84 Bariatric surgery status; Z68.34 Body mass index [BMI] 34.0-34.9, adult

== ENCOUNTER → 2017-03-25 | Outpatient (CLI) | payer OTHER ==
--- NOTE | 2017-05-19 07:31 | P.PN ---
Progress Note - Text DATE OF SERVICE: 03/25/2017 CHIEF COMPLAINT: History of panniculitis. HISTORY OF PRESENT ILLNESS: Jes is a 42-year-old female who is status post Gerson-en-Y gastric bypass in October 2015. Her highest weight was 284 pounds for her 5 foot 2-1/2 inches frame. Her ideal body weight is 135 pounds. Today she comes in weighing 187 pounds. She has maintained a 97 pound weight loss since over a year. Percent excess weight loss is 55%. Body mass index is reduced from 51.2 down to 33.7. BMI point reduction is 17.6. In fact, she has actually gained approximately 7 pounds in over a month. She comes in with chronic symptoms of panniculitis. She is using nystatin powder. Now she presents for further evaluation and management. PAST MEDICAL HISTORY: 1. Morbid obesity. 2. Prior history of insulin-dependent diabetes. 3. Gastroesophageal reflux disease. 4. Posttraumatic stress disorder. 5. Anxiety. 6. Depression. 7. Panniculitis. PAST SURGICAL HISTORY: 1. Status post Greson-en-Y gastric bypass. 2. Upper endoscopy. 3. Diagnostic laparoscopy. MEDICATIONS: 1. Senokot. 2. Antivert. 3. Aricept. 4. Celexa. 5. Fioricet. 6. Biotin. 7. Multivitamin. 8. Nystatin cream. 9. Nystatin powder. ALLERGIES: 1. PREGABALIN. 2. PREDNISONE. 3. SULFA. SOCIAL HISTORY: Lifelong nontobacco user. No alcohol or tobacco abuse. FAMILY HISTORY: Pertinent for diabetes including morbid obesity. REVIEW OF SYSTEMS: MUSCULOSKELETAL: Increased lower back pain secondary to overall size of pannus and panniculitis. GASTROINTESTINAL: Previous history of gastroesophageal reflux disease, resolved. Her chronic constipation including bowel obstruction, which was addressed within the last 3 months. CONSTITUTIONAL: Her highest weight was 284 pounds for her 5 foot 2-1/2 inches frame. Her ideal body weight is 135 pounds. Today she comes in weighing 187 pounds. She has maintained a 97 pound weight loss since over a year. Percent excess weight loss is 55%. Body mass index is reduced from 51.2 down to 33.7. BMI point reduction is 17.6. HEENT: No reports of troubles with vision or hearing. No dysphagia. ENDOCRINE: Diabetes type 2 resolved. No reports of active thyroid disorder. RESPIRATORY: History of obstructive sleep apnea now improved and resolved. CARDIOVASCULAR: Hypertension, resolved. No reports of hypercholesterolemia. PSYCH: History of posttraumatic stress disorder including anxiety. HEMATOLOGIC: No reports of easy bruising or bleeding. SKIN: She has had medicated prescription for her panniculitis including creams. PHYSICAL EXAM: VITAL SIGNS: Stable. ABDOMEN: Soft, nontender, nondistended. Pannus extends over pubis by over 6 cm with hyperemia. Weight of pannus of over 6 to 10 pounds. GENERAL: Well-developed female in no acute distress. HEENT: No sclera icterus. Extraocular movements grossly intact. Moist buccal mucosa. Head is atraumatic, normocephalic. Hears conversational speech. No nasal drainage. NECK: Supple without lymphadenopathy. No JV distention. CHEST: Non-labored respirations and equal bilateral excursions. CARDIOVASCULAR: Regular rate and rhythm. Palpable 2+ radial pulses. MUSCULOSKELETAL: No clubbing, cyanosis or edema. NEUROLOGIC: No focal or lateralizing signs. PSYCH: Appropriate affect. Alert and oriented to person, place and time. ASSESSMENT: 1. Morbid obesity due to excess calories, resolved. 2. Body mass index reduced from 51.2 down to 33.7. 3. Status post Gerson-en-Y gastric bypass. 4. History of massive weight loss of 97 pounds. 5. History of recurrent panniculitis. 6. History of splenic hemangioma. 7. Chronic constipation. 8. Dietary surveillance and counseling. 9. History of macromastia. 10. Obesity. 11. History of the lower back pain. PLAN: 1. I have gone over benefits and risks of the panniculectomy. She is more than a year out. Despite using topical treatment between prescribed creams and powders, she still continues to have symptoms. 2. Risks, including postop seroma, flap failure, infection, pain, need for further surgery were reviewed in detail. 3. She will need at minimum of 4 to 6 weeks of recovery with no lifting over 4 pounds. 4. Inpatient hospitalization over 2 nights advised. 5. Deep venous thrombosis prophylaxis. 6. Antibiotic prophylaxis. 7. Recommend at least a 2 week low-caloric, high-protein diet as to facilitate overall recovery. 8. Also recommend nutritional assessment with correction of all vitamin deficiencies. LABS: Previous labs in from November 2016 was reviewed demonstrating TSH level was moderately suppressed. Abdomen at that time was within normal limits. Recommend a full bariatric metabolic panel preoperatively.
== END | disposition home or self-care (01) ==
LOC: BARWHC3 08:54
PROVIDERS: ATTEND Surgery Plastic and Reconstructive Surgery
DX: Z53.9 Procedure and treatment not carried out, unspecified reason (principal)

== ENCOUNTER → 2017-05-07 | Outpatient (CLI) | payer OTHER ==
--- NOTE | 2017-05-10 10:18 | MM ---
Reason for exam: screening (asymptomatic). Last mammogram was performed 1 year ago. History: Family history of breast cancer in paternal aunt at age 50 and breast cancer in paternal aunt. Took hormonal contraceptives for 10 years. Physical Findings: A clinical breast exam by your physician is recommended on an annual basis and results should be correlated with mammographic findings. MG 3D Screening Mammo W/Cad Bilateral CC and MLO view(s) were taken. Prior study comparison: May 05, 2016, left breast MG 3d work up w/cad LT. April 27, 2016, bilateral MG screening mammo w CAD. The breast tissue is heterogeneously dense. This may lower the sensitivity of mammography. No significant changes when compared with prior studies. ASSESSMENT: Benign, BI-RAD 2 RECOMMENDATION: Routine screening mammogram of both breasts in 1 year.
== END | disposition home or self-care (01) ==
LOC: RADMAMWWP 08:58
PROVIDERS: ATTEND Family Medicine
DX: Z12.31 Encounter for screening mammogram for malignant neoplasm of breast (principal)
CPT/HCPCS: 77063; G0202

== ENCOUNTER → 2017-05-14 | Outpatient (CLI) | payer OTHER ==
[2017-05-19 14:12] LABS: Mis test requested (Blood) Stratify JCV
== END | disposition home or self-care (01) ==
LOC: LABWHC1 13:37
PROVIDERS: ATTEND Psychiatry & Neurology Pain Medicine
DX: G35 Multiple sclerosis (principal)
CPT/HCPCS: 36415

== ENCOUNTER → 2017-06-18 | Outpatient (CLI) | payer OTHER ==
--- NOTE | 2017-06-18 09:40 | MR ---
MR right ankle HISTORY: M 76.71 No comparisons Multiplanar multisequence imaging through the right ankle There is longitudinal abnormal signal along the peroneal is brevis tendon on T1 and T2-weighted seque nces compatible with Proteus brevis tendon tear. No ami disruption evident. The Achilles tendon is intact but shows some increased signal within its substance and thickening, partial tear suspected. P lantar aponeurosis is intact. Flexor and extensor tendons are intact. Fluid signal is present along t he flexor tendons compatible tenosynovitis. There is a linear focus of abnormal signal at the level of the distal fibula compatible with nondispl aced fracture, correlate with plain film. Marrow edema present at the medial talus the ankle mortise may represent a small osteochondral defect measuring only approximately 2 to 3 mm seen on coronal luis f ge 19, sagittal image 10. There is a small ankle joint effusion present. There is a plantar calcaneal spur present. No evident ligamentous disruption. Tibiotalar ligament treviño s show some fluid signal suggestive of strain or partial tear. IMPRESSION: Correlate for distal fibular fracture. Peroneal is brevis tendon longitudinal tear. Small osteochondral injury suspected medial ankle mortise. Partial tear Achilles tendon. Additional findin gs above.
== END | disposition home or self-care (01) ==
LOC: RADMRIMAIN 08:20
PROVIDERS: ATTEND Orthopaedic Surgery
DX: S86.011A Strain of right Achilles tendon, initial encounter (principal); S86.311A Strain of muscle(s) and tendon(s) of peroneal muscle group at lower leg level, right leg, initial encounter; S82.831A Other fracture of upper and lower end of right fibula, initial encounter for closed fracture

== ENCOUNTER → 2017-11-12 | Outpatient (CLI) | payer OTHER ==
--- NOTE | 2017-11-13 09:19 | XR ---
Exam: Lumbar spine complete TECHNIQUE: 4 views of the lumbosacral spine were obtained. HISTORY: Low back pain, M 52.5 FINDINGS: Postoperative changes from bariatric surgery are again noted. There are several surgical clips in the upper abdomen. There is grade 1 anterolisthesis of L4 on L5. Intervertebral disc space is relatively maintained. The re appears to be neural foraminal narrowing at the level of L5-S1 due to facet disease. Vertebral bod y height and alignment are maintained otherwise. The sacroiliac joints are patent. IMPRESSION: Mild spondylosis. There is grade 1 anterolisthesis of L4 on L5 and there is most likely foraminal meredith rowing identified at the level of L5-S1 due to facet disease.
== END | disposition home or self-care (01) ==
LOC: RADXRMAIN 12:09
PROVIDERS: ATTEND Family Medicine
DX: M54.5 Low back pain (principal)
CPT/HCPCS: 72100

== ENCOUNTER → 2018-03-02 | Outpatient (CLI) | payer OTHER ==
[2018-03-02 15:46] VITALS: BP 140/85; PULSE 76; RESP 16; TEMP 98.5; BMI 39.4
[2018-03-02 17:53] LABS: Magnesium 1.8 mg/dL (1.6-2.3); Phosphorus 4.2 mg/dL (2.5-4.5)
[2018-03-03 00:32] LABS: Iron Saturation 17.81 (12.00-45.00)
[2018-03-03 00:54] LABS: Folate, Serum >24.0 ng/mL
[2018-03-03 03:52] LABS: Parathyroid Hormone Intact 33.5 pg/mL (14.0-72.0)
[2018-03-03 12:32] LABS: Zinc, Serum 100 ug/dL (60-130)
[2018-03-04 08:46] LABS: Vitamin A 90 ug/dL (38-106)
== END | disposition home or self-care (01) ==
LOC: BARWHC3 15:00
PROVIDERS: ATTEND Surgery Plastic and Reconstructive Surgery
DX: E66.01 Morbid (severe) obesity due to excess calories (principal); Z68.39 Body mass index [BMI] 39.0-39.9, adult; D50.8 Other iron deficiency anemias; E44.0 Moderate protein-calorie malnutrition; K74.1 Hepatic sclerosis; N19 Unspecified kidney failure; K50.90 Crohn's disease, unspecified, without complications
CPT/HCPCS: 84255; 84134; 80061; 82728; 82525; 82746; 83540; 83550; 83735; 84100; 84443; 84590; 84630; 83970; 97803; 36415; G0463; 99211

== ENCOUNTER → 2018-04-13 | Outpatient (CLI) | payer OTHER ==
--- NOTE | 2018-04-13 13:34 | P.PN ---
Subjective Progress Note Date: 04/13/18 HPI: Patient comes in with continued weight gain. She has gained another 3 pounds in 1 month. She follow up with her mother following her gastric bypass. Both underwent dietary classes. She reports chronic pain. She sees a neurologist for her multiple sclerosis. She is not following her dietary guidelines PLAN: 1. Need bariatric labs and is overdue for May. 2. She reports exposure to steroids which she believes is causing weight gain. 3. Despite dietary changes, recommend close monitoring with dietitian. 4. Exercise and staying active daily will help with weight control.
[2018-04-13 13:48] VITALS: BP 128/87; PULSE 87; TEMP 98.4; BMI 39.9
== END | disposition home or self-care (01) ==
LOC: BARWHC3 12:16
PROVIDERS: ATTEND Surgery Plastic and Reconstructive Surgery
DX: Z09 Encounter for follow-up examination after completed treatment for conditions other than malignant neoplasm (principal); G89.29 Other chronic pain; G35 Multiple sclerosis; Z98.84 Bariatric surgery status
CPT/HCPCS: 97803; G0463; 99211

== ENCOUNTER → 2018-05-17 | Outpatient (CLI) | payer OTHER ==
[2018-05-17 11:55] LABS: HCT 38.7 % (34.0-46.0); HGB 12.8 gm/dL (11.4-16.0); MCH 29.8 pg (25.0-35.0); MCHC 33.1 g/dL (31.0-37.0); MCV 89.9 fL (80.0-100.0); Platelet Count 296 k/uL (150-450); RBC 4.31 m/uL (3.80-5.40); RDW 12.6 % (11.5-15.5); WBC 9.3 k/uL (3.8-10.6)
[2018-05-17 12:09] LABS: ALT 48 U/L (9-52); AST 23 U/L (14-36); Albumin 4.1 g/dL (3.5-5.0); Alkaline Phosphatase 85 U/L (38-126); Anion Gap 10 mmol/L; Blood Urea Nitrogen 19 mg/dL (7-17); Calcium 9.3 mg/dL (8.4-10.2); Carbon Dioxide 26 mmol/L (22-30); Chloride 102 mmol/L (98-107); Cholesterol 242 mg/dL (<200); Glucose 135 mg/dL (74-99); HDL Cholesterol 88 mg/dL (40-60); LDL Cholesterol,Calculated 87 mg/dL (0-99); Magnesium 1.9 mg/dL (1.6-2.3); Phosphorus 4.6 mg/dL (2.5-4.5); Sodium 138 mmol/L (137-145); Total Bilirubin 0.6 mg/dL (0.2-1.3); Total Protein 6.6 g/dL (6.3-8.2); Triglycerides 337 mg/dL (<150)
[2018-05-17 12:15] LABS: Prothrombin Time 9.6 sec (9.0-12.0)
[2018-05-17 12:20] LABS: Partial Thromboplastin Time 21.3 sec (22.0-30.0)
[2018-05-17 15:59] LABS: Parathyroid Hormone Intact 38.3 pg/mL (14.0-72.0)
[2018-05-17 16:29] LABS: Vitamin D 25 Hydroxy 32.8 ng/mL (30.0-100.0)
[2018-05-17 16:48] LABS: Folate, Serum 22.7 ng/mL; Iron Saturation 46.86 (12.00-45.00)
[2018-05-17 17:38] LABS: Hepatitis B Core IgM Non-Reactive (Non-Reactive); Hepatitis B Surface AB- Quant 3.5 mIU/mL
[2018-05-17 18:59] LABS: Hemoglobin A1C 6.4 % (4.0-6.0)
[2018-05-18 15:44] LABS: Zinc, Serum 82 ug/dL (60-130)
[2018-05-20 05:43] LABS: Vitamin A 90 ug/dL (38-106)
[2018-05-20 13:18] LABS: Vitamin B1 69 ug/L (38-122)
== END | disposition home or self-care (01) ==
LOC: LABWHC1 11:10
PROVIDERS: ATTEND Surgery Plastic and Reconstructive Surgery
DX: G35 Multiple sclerosis (principal); E78.2 Mixed hyperlipidemia; E21.1 Secondary hyperparathyroidism, not elsewhere classified; D50.9 Iron deficiency anemia, unspecified; E44.0 Moderate protein-calorie malnutrition; E55.9 Vitamin D deficiency, unspecified; K74.1 Hepatic sclerosis; N19 Unspecified kidney failure; K50.90 Crohn's disease, unspecified, without complications; E89.1 Postprocedural hypoinsulinemia; Z51.81 Encounter for therapeutic drug level monitoring
CPT/HCPCS: 36415; 80053; 80061; 82306; 82525; 82607; 82728; 82746; 83036; 83540; 83550; 83735; 83970; 84100; 84134; 84255; 84425; 84443; 84590; 84630; 85027; 85610; 85730; 86704; 86705; 86706; 87340

== ENCOUNTER → 2018-08-02 | Outpatient (CLI) | payer OTHER ==
--- NOTE | 2018-08-04 13:18 | MM ---
Reason for exam: screening (asymptomatic). Last mammogram was performed 1 year and 3 months ago. History: Family history of breast cancer in paternal aunt at age 50 and breast cancer in paternal aunt. Took hormonal contraceptives for 10 years. Physical Findings: A clinical breast exam by your physician is recommended on an annual basis and results should be correlated with mammographic findings. MG 3D Screening Mammo W/Cad Bilateral CC and MLO view(s) were taken. Prior study comparison: May 07, 2017, bilateral MG 3d screening mammo w/cad. April 27, 2016, bilateral MG screening mammo w CAD. April 26, 2015, bilateral MG screening mammo w CAD. The breast tissue is heterogeneously dense. This may lower the sensitivity of mammography. No significant changes when compared with prior studies. ASSESSMENT: Negative, BI-RAD 1 RECOMMENDATION: Routine screening mammogram of both breasts in 1 year.
== END | disposition home or self-care (01) ==
LOC: RADMAMWWP 09:46
PROVIDERS: ATTEND Family Medicine
DX: Z12.31 Encounter for screening mammogram for malignant neoplasm of breast (principal)
CPT/HCPCS: 77063; 77067

== ENCOUNTER → 2018-12-06 | Outpatient (CLI) | payer OTHER ==
[2018-12-06 12:52] LABS: Basophils # (A) 0.1 k/uL (0-0.2); Basophils % (A) 1 %; Eosinophils # (A) 0.3 k/uL (0-0.7); Eosinophils % (A) 4 %; HCT 40.3 % (34.0-46.0); HGB 12.8 gm/dL (11.4-16.0); Lymphocytes # (A) 2.7 k/uL (1.0-4.8); Lymphocytes % (A) 32 %; MCH 27.2 pg (25.0-35.0); MCHC 31.8 g/dL (31.0-37.0); MCV 85.3 fL (80.0-100.0); Mean Platelet Volume 6.5; Monocytes # (A) 0.6 k/uL (0-1.0); Monocytes % (A) 7 %; Neutrophils # (A) 4.6 k/uL (1.3-7.7); Neutrophils % (A) 55 %; Platelet Count 363 k/uL (150-450); RBC 4.73 m/uL (3.80-5.40); RDW 13.2 % (11.5-15.5); WBC 8.4 k/uL (3.8-10.6)
[2018-12-06 19:07] LABS: Vitamin D 25 Hydroxy 40.6 ng/mL (30.0-100.0)
[2018-12-06 19:54] LABS: Hepatitis A Antibody IgM Non-Reactive (Non-Reactive); Hepatitis B Core IgM Non-Reactive (Non-Reactive)
[2018-12-06 20:40] LABS: HIV 1 AB Non-Reactive (Non-Reactive); HIV AB P24 Non-Reactive (Non-Reactive); HIV P24 AG Non-Reactive (Non-Reactive)
[2018-12-06 21:39] LABS: Hemoglobin A1C 6.3 % (4.0-6.0)
[2018-12-06 22:07] LABS: Folate, Serum >24.0 ng/mL
[2018-12-06 22:18] LABS: Albumin 4.4 g/dL (3.80-4.90); Anion Gap 6.9 mmol/L (4.00-12.00); Carbon Dioxide 29.1 mmol/L (21.6-31.8); Globulin 2.2 g/dL (1.6-3.3); Potassium 4.4 mmol/L (3.5-5.5); Total Bilirubin 0.3 mg/dL (0.2-1.2); Total Protein 6.6 g/dL (6.2-8.2)
[2018-12-08 08:12] LABS: Vitamin B1 115 ug/L (38-122)
== END | disposition home or self-care (01) ==
LOC: LABWHC1 11:35
PROVIDERS: ATTEND Psychiatry & Neurology Pain Medicine
DX: G35 Multiple sclerosis (principal)
CPT/HCPCS: 36415; 80053; 80074; 82306; 82607; 82746; 83036; 84207; 84425; 84439; 84443; 84481; 84591; 85025; 87390

== ENCOUNTER → 2019-01-25 | Outpatient (CLI) | payer MEDICARE, OTHER ==
--- NOTE | 2019-01-25 16:12 | P.PN ---
Subjective Progress Note Date: 01/25/19 HPI: She comes in with 40 pound weight gain from her lowest weight of 187 pounds. She is back on diabetic medications. She is also using an assistive device to walk. No abdominal pain. She still has constipation. She has multiple new medication. She is on steroids and is causing weight gain. ABDOMEN: No hernia. PLAN: 1. Bariatric labs 2. 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
[2019-01-25 16:30] VITALS: BP 144/105; PULSE 76; TEMP 97.6; BMI 40.1
[2019-01-25 18:14] LABS: HCT 37.4 % (34.0-46.0); MCH 27.5 pg (25.0-35.0); MCHC 32.2 g/dL (31.0-37.0); MCV 85.6 fL (80.0-100.0); Mean Platelet Volume 7.1; Platelet Count 343 k/uL (150-450); RBC 4.37 m/uL (3.80-5.40); RDW 13.9 % (11.5-15.5); WBC 8.4 k/uL (3.8-10.6)
[2019-01-25 18:22] LABS: INR 0.9 (<1.2); Partial Thromboplastin Time 24.8 sec (22.0-30.0); Prothrombin Time 9.6 sec (9.0-12.0)
[2019-01-26 00:35] LABS: Hemoglobin A1C 6.4 % (4.0-6.0)
[2019-01-26 00:53] LABS: Parathyroid Hormone Intact 36.5 pg/mL (14.0-72.0)
[2019-01-26 01:23] LABS: Iron Saturation 10.57 (12.00-45.00)
[2019-01-26 01:32] LABS: Vitamin D 25 Hydroxy 32.4 ng/mL (30.0-100.0)
[2019-01-26 01:33] LABS: Albumin 4.6 g/dL (3.80-4.90); Albumin/Globulin Ratio 2.19 (1.60-3.17); Anion Gap 10.3 mmol/L (4.00-12.00); Calcium 9.6 mg/dL (8.7-10.3); Carbon Dioxide 25.7 mmol/L (21.6-31.8); Globulin 2.1 g/dL (1.6-3.3); LDL Cholesterol,Calculated 95.2 mg/dL (0.0-131.0); Magnesium 1.8 mg/dL (1.5-2.4); Phosphorus 3.9 mg/dL (2.4-5.1); Potassium 3.8 mmol/L (3.5-5.5); Total Bilirubin 0.3 mg/dL (0.3-1.2); Total Protein 6.7 g/dL (6.2-8.2); VLDL Calculation 20.8 mg/dL (5.00-40.00)
[2019-01-26 01:41] LABS: Folate, Serum >24.0 ng/mL
== END ==
LOC: BARWHC3 14:51
PROVIDERS: ATTEND Surgery Plastic and Reconstructive Surgery
DX: E66.01 Morbid (severe) obesity due to excess calories (principal); E21.1 Secondary hyperparathyroidism, not elsewhere classified; D50.9 Iron deficiency anemia, unspecified; K90.9 Intestinal malabsorption, unspecified; E44.0 Moderate protein-calorie malnutrition; E55.9 Vitamin D deficiency, unspecified; K74.1 Hepatic sclerosis; N19 Unspecified kidney failure; K50.90 Crohn's disease, unspecified, without complications; Z79.899 Other long term (current) drug therapy
CPT/HCPCS: 84255; 84134; 84425; 80061; 80053; 82607; 82728; 82525; 82746; 83540; 83550; 83735; 84100; 84443; 84590; 84630; 85027; 85610; 85730; 82306; 83970; 83036; G0463; 99211

== ENCOUNTER → 2019-02-28 | Outpatient (CLI) | payer MEDICARE, OTHER ==
[2019-02-28 23:29] LABS: Iron Saturation 25.72 (12.00-45.00)
== END | disposition home or self-care (01) ==
LOC: LABWHC1 13:02
PROVIDERS: ATTEND Surgery Plastic and Reconstructive Surgery
DX: E66.01 Morbid (severe) obesity due to excess calories (principal); D50.8 Other iron deficiency anemias
CPT/HCPCS: 36415; 82607; 82728; 83540; 83550

== ENCOUNTER → 2019-03-30 | Outpatient (CLI) | payer MEDICARE, OTHER ==
--- NOTE | 2019-03-30 10:08 | P.PN ---
Subjective Progress Note Date: 03/30/19 DATE OF SERVICE: 03/30/2019 CHIEF COMPLAINT: Morbid obesity HISTORY OF PRESENT ILLNESS: Jes Dhaliwal is a 43-year-old female who is over 3.5 years out from a Gerson-en-Y gastric bypass on 11/10/[address] Hilliard. She had gained over 40 pounds. She is using Celebrate MVI, calcium for her nutrition. Her iron has improved. Today she comes in weighing 225 pounds from 223 pounds, 2 months ago. She has gained 2 pounds in 2 months. At her height of 5 foot 2-1/2 inches, her ideal body weight is 135 pounds. Her highest weight was 284 pounds. She has maintained 59 pound weight loss. Percent of weight loss is 40 %. Body mass index is reduced from 51.2 down to 40.5. She is 90 pounds overweight. PHYSICAL EXAM: VITAL SIGNS: 5 feet 2-1/2 inches, 225 pounds. Body mass index 40.5. Vital Signs Temp 98.3 F 03/30/19 10:19 Pulse 65 03/30/19 10:19 Resp 16 03/30/19 10:19 BP 143/76 03/30/19 10:19 Pulse Ox ABDOMEN: Soft, nontender, nondistended. GENERAL: Well-developed female in no acute distress. HEENT: No sclera icterus. Extraocular movements grossly intact. Moist buccal mucosa. Head is atraumatic, normocephalic. Hears conversational speech. No nasal drainage. NECK: Supple without lymphadenopathy. No JV distention. CHEST: Non-labored respirations and equal bilateral excursions. CARDIOVASCULAR: Regular rate and rhythm. Palpable 2+ radial pulses. MUSCULOSKELETAL: No clubbing, cyanosis or edema. NEUROLOGIC: No focal or lateralizing signs. PSYCH: Appropriate affect. Alert and oriented to person, place and time. SKIN: Well perfused. Good skin turgor. ASSESSMENT: 1. Morbid obesity due to excess calories 2. Body mass index reduced from 51.2 down to 40.5 3. Status post Gerson-en-Y gastric bypass. 4. Weight gain following bariatric procedure 5. History of recurrent panniculitis. 6. History of splenic hemangioma. 7. Chronic constipation. 8. Dietary surveillance and counseling. 9. Diabetes type 2, [id number] 10. Iron deficiency anemia PLAN: 1. Continue MVI Celebrate for nutritional deficiencies. 2. We went over medications and all vitamins. 3. Continue with Weight wat[employer] for history of over 40 pound weight gain
[2019-03-30 10:27] VITALS: BP 143/76; PULSE 65; RESP 16; TEMP 98.3
[2019-03-30 11:30] VITALS: BMI 40.5
== END | disposition home or self-care (01) ==
LOC: BARWHC3 09:20
PROVIDERS: ATTEND Surgery Plastic and Reconstructive Surgery
DX: Z48.815 Encounter for surgical aftercare following surgery on the digestive system (principal); E66.01 Morbid (severe) obesity due to excess calories; K59.09 Other constipation; E11.9 Type 2 diabetes mellitus without complications; D50.9 Iron deficiency anemia, unspecified; Z71.3 Dietary counseling and surveillance; Z68.41 Body mass index [BMI] 40.0-44.9, adult; Z87.19 Personal history of other diseases of the digestive system; Z86.018 Personal history of other benign neoplasm; Z98.84 Bariatric surgery status
CPT/HCPCS: 97803; G0463; 99211

== ENCOUNTER → 2019-05-09 | Outpatient (CLI) | payer MEDICARE, OTHER | END | disposition home or self-care (01) | LOC: LABWHC1 10:34 | DX: G35 Multiple sclerosis (principal) | CPT/HCPCS: 36415 ==

== ENCOUNTER → 2019-05-29 | Day surgery (SDC) | payer MEDICARE, OTHER ==
[2019-05-23 09:19] VITALS: BMI 39.2
[~2019-05-29] MED LIST: LACTATED RINGERS 1,000 ML IV SCH; LIDOCAINE 1% 20 ML VIAL (10MG/ML) FOR IV START INTRADERMA PRN; PROPOFOL 10 MG/ML 20 ML VIAL IV ONE
[2019-05-29 06:51] VITALS: TEMP 98.8
[2019-05-29 07:08] LABS: Glucose,Whole Blood 100 mg/dL (75-99)
--- NOTE | 2019-05-29 07:54 | P.GSHP ---
History of Present Illness H&P Date: 05/29/19 CHIEF COMPLAINT: Change in bowel habits HISTORY OF PRESENT ILLNESS: The patient is a 44-year-old female who presents with change in bowel habits. Lower endoscopy was offered for further evaluation and management. PAST MEDICAL HISTORY: Please see list. PAST SURGICAL HISTORY: Please see list. MEDICATIONS: Please see list. ALLERGIES: Please see list. SOCIAL HISTORY: No illicit drug use FAMILY HISTORY: No reports of Crohn disease or ulcerative colitis. REVIEW OF ORGAN SYSTEMS: CONSTITUTIONAL: No reports of fevers or chills. PHYSICAL EXAM: VITAL SIGNS: Stable GENERAL: Well-developed pleasant in no acute distress. HEENT: No scleral icterus. Extraocular movements grossly intact. Moist buccal mucosa. NECK: Supple without lymphadenopathy. CHEST: Unlabored respirations. Equal bilateral excursions. CARDIOVASCULAR: Regular rate and rhythm. Distal 2+ pulses. ABDOMEN: Soft, nontender, nondistended. MUSCULOSKELETAL: No clubbing, cyanosis, or edema. ASSESSMENT: 1. Change in bowel habits PLAN: 1. Recommend proceeding with a lower endoscopy Past Medical History Past Medical History: Diabetes Mellitus, Fibromyalgia, GERD/Reflux, Musculoskeletal Disorder, Osteoarthritis (OA), Skin Disorder, Sleep Apnea/CPAP/BIPAP Additional Past Medical History / Comment(s): degenerative arthritis with chronic bilateral hip pain, history of bursitis, irritable bowel syndrome, hiatal hernia history of H. pylori that was treated with antibiotics, umbilical hernia, MS diagnosed (2014)., Sleep Apnea resolved with wt loss , osteopenia, Acne, Occasional Sores under abdominal apron., GERD resolved ., Incontinence co ntrolled with RX., States Lisinopril used to protect kidneys., MS causes muscle spasms, migraines, fatigue, vertigo., uses cane ., states Constipation. History of Any Multi-Drug Resistant Organisms: None Reported Past Surgical History: Bariatric Surgery, Cholecystectomy, Hysterectomy, Orthopedic Surgery, Uterine Ablation Additional Past Surgical History / Comment(s): BILAT CARPAL TUNNEL RELEASE. 11-18-15 [facility]. BILAT KNEE ARTHROSCOPY. RT ROTATOR CUFF REPAIR. COLONOSCOPY, EGD Past Anesthesia/Blood Transfusion Reactions: Motion Sickness, Postoperative Nausea & Vomiting (PONV) Additional Past Anesthesia/Blood Transfusion Reaction / Comment(s): CLAUSTERPHOBIA Past Psychological History: Anxiety, Depression, PTSD Smoking Status: Never smoker Past Alcohol Use History: None Reported Past Drug Use History: None Reported - Past Family History Mother Family Medical History: Diabetes Mellitus, Hyperlipidemia, Hypertension Additional Family Medical History / Comment(s): OBESITY, DEPRESSION. GRANDFATHER HAD DVT Father Family Medical History: Coronary Artery Disease (CAD), Diabetes Mellitus, Hyperlipidemia, Hypertension, Myocardial Infarction ([place]), Renal Disease Additional Family Medical History / Comment(s): GOUT, CARDIAC STENTS Medications and Allergies Home Medications Medication Instructions Recorded Confirmed Type Citalopram Hydrobromide [CeleXA] 40 mg PO DAILY 04/15/14 05/29/19 History Biotin 10,000 mcg PO DAILY 04/29/16 05/29/19 History Baclofen 10 mg PO TID 06/28/17 05/29/19 History Amitriptyline HCl [Elavil] 50 mg PO DAILY 04/14/18 05/29/19 History Meclizine [Antivert] 12.5 mg PO TID 04/14/18 05/29/19 History Ondansetron HCl [Zofran] 8 mg PO BID PRN 04/14/18 05/23/19 History traMADol HCL [Ultram] 50 mg PO TID 04/14/18 05/29/19 History Ascorbic Acid [Vitamin C] 500 mg PO BID 02/02/19 05/29/19 History Oxybutynin Chloride [Ditropan XL] 10 mg PO DAILY 02/02/19 05/29/19 History Simvastatin [Zocor] 10 mg PO DAILY 02/02/19 05/29/19 History sitaGLIPtin [Januvia] 100 mg PO DAILY 02/02/19 05/29/19 History Lisinopril [Zestril] 2.5 mg PO HS 02/06/19 05/29/19 History Ammonium Lactate Cream [Lac-Hydrin 1 applic TOPICAL BID PRN 04/03/19 05/23/19 History 12% Cream] Clindamycin Gel [Clindamycin 1 applic TOPICAL BID 04/03/19 05/23/19 History Phosphate 1% Gel] Zinc Oxide [Desitin] 1 cream TOPICAL DAILY PRN 04/03/19 05/23/19 History Artificial Tears-Hypromellose 1 drops BOTH EYES QID 05/23/19 05/23/19 History [Artificial Tear Drops] Bariatric Calcium 500 mg PO DAILY 05/23/19 History Bariatric Multivitamin 1 tab PO BID 05/23/19 History Ferrous Sulfate [Feosol] 325 mg PO DAILY 05/23/19 05/23/19 History Linaclotide [Linzess] 290 mcg PO DAILY 05/23/19 05/29/19 History Ocrevus Infusion For Ms 1 dose IV DIRECTED 05/23/19 History Allergies Allergy/AdvReac Type Severity Reaction Status Date / Time pregabalin [From Lyrica] Allergy Severe Anaphylaxis Verified 05/23/19 08:58 Sulfa (Sulfonamide Allergy Severe Anaphylaxis, Verified 05/23/19 08:58 Antibiotics) Rash/Hives Surgical - Exam Vital Signs Temp Pulse Resp BP Pulse Ox 98.8 F 81 17 116/60 95 05/29/19 06:49 05/29/19 06:49 05/29/19 06:49 05/29/19 06:49 05/29/19 06:49 Results - Labs Abnormal Lab Results - Last 24 Hours (Table) 05/29/19 Range/Units 06:54 POC Glucose (mg/dL) 100 H (75-99) mg/dL
--- NOTE | 2019-05-29 08:19 | P.PCN ---
Date of Procedure: 05/29/19 Description of Procedure: PREOPERATIVE DIAGNOSIS: Change in bowel habits POSTOPERATIVE DIAGNOSIS: Change in bowel habits Chronic constipation OPERATION: Colonoscopy to the ascending colon SURGEON: Sara Rhodes MD. ANESTHESIA: MAC. INDICATIONS: The patient is a 57-year-old female who presents for colonoscopy screening. Benefits and risks were described and informed consent was obtained. DESCRIPTION OF PROCEDURE: The patient had undergone Gatorade, MiraLAX and Dulcolax prep. She had been bro ught into the operating room and laid in the left lateral decubitus position. After adequate intravenous sedation, the rectum was examined with 2% lidocaine jelly. No external hemorrhoids were encountered. The rectal tone was within normal limits. No lesions were palpated in the rectal vault. An Olympus colonoscope was advanced to the ascending colon. The prep was poor. No scattered diverticulosis was encountered. No colonic polyps were found. No evidence of focal colitis was found. Retroflexion of the scope demonstrated grade 1 internal hemorrhoids without active bleeding or inflammation. The colon was desufflated. The patient had tolerated the procedure well. Withdrawal time was over 6 minutes. FINDINGS: Aronchick preparation quality scale 4 (1-5) Internal hemorrhoids, grade 1 No external prolapsed hemorrhoids. No arteriovenous malformations. No adenomatous polyps. No focal colitis. RECOMMENDATIONS: Lower endoscopy as needed Fiber diet of 25 grams daily advised Plan - Discharge Summary New Discharge Prescriptions: No Action Citalopram Hydrobromide [CeleXA] 40 mg PO DAILY Biotin 10,000 mcg PO DAILY Baclofen 10 mg PO TID Meclizine [Antivert] 12.5 mg PO TID Amitriptyline HCl [Elavil] 50 mg PO DAILY traMADol HCL [Ultram] 50 mg PO TID Ondansetron HCl [Zofran] 8 mg PO BID PRN PRN Reason: Nausea Simvastatin [Zocor] 10 mg PO DAILY Oxybutynin Chloride [Ditropan XL] 10 mg PO DAILY sitaGLIPtin [Januvia] 100 mg PO DAILY Ascorbic Acid [Vitamin C] 500 mg PO BID Lisinopril [Zestril] 2.5 mg PO HS Ammonium Lactate Cream [Lac-Hydrin 12% Cream] 1 applic TOPICAL BID PRN PRN Reason: dry feet Zinc Oxide [Desitin] 1 cream TOPICAL DAILY PRN PRN Reason: sores in fold of apron Clindamycin Gel [Clindamycin Phosphate 1% Gel] 1 applic TOPICAL BID Ferrous Sulfate [Feosol] 325 mg PO DAILY Artificial Tears-Hypromellose [Artificial Tear Drops] 1 drops BOTH EYES QID Linaclotide [Linzess] 290 mcg PO DAILY Bariatric Multivitamin 1 tab PO BID Ocrevus Infusion For Ms 1 dose IV DIRECTED Bariatric Calcium 500 mg PO DAILY Discharge Medication List Citalopram Hydrobromide [CeleXA] 40 mg PO DAILY 04/15/14 [History] Biotin 10,000 mcg PO DAILY 04/29/16 [History] Baclofen 10 mg PO TID 06/28/17 [History] Amitriptyline HCl [Elavil] 50 mg PO DAILY 04/14/18 [History] Meclizine [Antivert] 12.5 mg PO TID 04/14/18 [History] Ondansetron HCl [Zofran] 8 mg PO BID PRN 04/14/18 [History] traMADol HCL [Ultram] 50 mg PO TID 04/14/18 [History] Ascorbic Acid [Vitamin C] 500 mg PO BID 02/02/19 [History] Oxybutynin Chloride [Ditropan XL] 10 mg PO DAILY 02/02/19 [History] Simvastatin [Zocor] 10 mg PO DAILY 02/02/19 [History] sitaGLIPtin [Januvia] 100 mg PO DAILY 02/02/19 [History] Lisinopril [Zestril] 2.5 mg PO HS 02/06/19 [History] Ammonium Lactate Cream [Lac-Hydrin 12% Cream] 1 applic TOPICAL BID PRN 04/03/19 [History] Clindamycin Gel [Clindamycin Phosphate 1% Gel] 1 applic TOPICAL BID 04/03/19 [History] Zinc Oxide [Desitin] 1 cream TOPICAL DAILY PRN 04/03/19 [History] Artificial Tears-Hypromellose [Artificial Tear Drops] 1 drops BOTH EYES QID 01/10 [History] Bariatric Calcium 500 mg PO DAILY 05/23/19 [History] Bariatric Multivitamin 1 tab PO BID 05/23/19 [History] Ferrous Sulfate [Feosol] 325 mg PO DAILY 05/23/19 [History] Linaclotide [Linzess] 290 mcg PO DAILY 05/23/19 [History] Ocrevus Infusion For Ms 1 dose IV DIRECTED 05/23/19 [History] Follow up Appointment(s)/Referral(s): Sara Rhodes MD [STAFF PHYSICIAN] - 06/20/19 Patient Instructions/Handouts: Constipation (DC), High Fiber Diet (DC) Activity/Diet/Wound Care/Special Instructions: Follow up as needed Discharge Disposition: HOME SELF-CARE
[2019-05-29 08:30] VITALS: BP 120/73; PULSE 69; RESP 18
== END | disposition home or self-care (01) ==
LOC: ORWHC2ENDO 05:50
PROVIDERS: ATTEND Surgery Plastic and Reconstructive Surgery
DX: R19.4 Change in bowel habit (principal); K64.9 Unspecified hemorrhoids; E11.9 Type 2 diabetes mellitus without complications; F32.9 Major depressive disorder, single episode, unspecified; F43.10 Post-traumatic stress disorder, unspecified; K21.9 Gastro-esophageal reflux disease without esophagitis; K44.9 Diaphragmatic hernia without obstruction or gangrene; K58.1 Irritable bowel syndrome with constipation; M19.90 Unspecified osteoarthritis, unspecified site; M79.7 Fibromyalgia; Z82.49 Family history of ischemic heart disease and other diseases of the circulatory system; Z86.19 Personal history of other infectious and parasitic diseases; Z88.2 Allergy status to sulfonamides; G35 Multiple sclerosis; Z98.84 Bariatric surgery status; Z90.49 Acquired absence of other specified parts of digestive tract; Z79.84 Long term (current) use of oral hypoglycemic drugs; Z79.899 Other long term (current) drug therapy; Z88.8 Allergy status to other drugs, medicaments and biological substances; E78.5 Hyperlipidemia, unspecified
CPT/HCPCS: 45378; J2704

== ENCOUNTER → 2019-05-31 | Outpatient (CLI) | payer MEDICARE, OTHER ==
--- NOTE | 2019-05-31 16:27 | P.PN ---
Subjective Progress Note Date: 05/31/19 DATE OF SERVICE: 05/31/2019 CHIEF COMPLAINT: Chronic constipation HISTORY OF PRESENT ILLNESS: Jes Dhaliwal is a 44-year-old female who is over 4 years out from a Gerson-en-Y gastric bypass on 11/10/2015. She comes in with new severe constipation. She has completed a colonoscopy. She reports water intake of 1.5 L daily or less. She has just started on Linzess. She reports poor sleep. Today she comes in weighing 222 pounds from 225 pounds, 2 months ago. She has lost 3 pounds in 2 months. At her height of 5 foot 2-1/2 inches, her ideal body weight is 135 pounds. Her highest weight was 284 pounds. She has maintained 62 pound weight loss. Percent of weight loss is 42 %. Body mass index is reduced from 51.2 down to 40.0. She is 87 pounds overweight. PAST MEDICAL HISTORY: 1. Morbid obesity, BMI 51.2, initial. 2. Prior history of insulin-dependent diabetes. 3. Gastroesophageal reflux disease. 4. Posttraumatic stress disorder. 5. Anxiety. 6. Depression. 7. Panniculitis. PAST SURGICAL HISTORY: 1. Status post Gerson-en-Y gastric bypass. 2. Upper endoscopy. 3. Diagnostic laparoscopy. MEDICATIONS: Home Medications Medication Instructions Recorded Confirmed Citalopram Hydrobromide [CeleXA] 40 mg PO DAILY 04/15/14 05/29/19 Biotin 10,000 mcg PO DAILY 04/29/16 05/29/19 Baclofen 10 mg PO TID 06/28/17 05/29/19 Amitriptyline HCl [Elavil] 50 mg PO DAILY 04/14/18 05/29/19 Meclizine [Antivert] 12.5 mg PO TID 04/14/18 05/29/19 Ondansetron HCl [Zofran] 8 mg PO BID PRN 04/14/18 05/23/19 traMADol HCL [Ultram] 50 mg PO TID 04/14/18 05/29/19 Ascorbic Acid [Vitamin C] 500 mg PO BID 02/02/19 05/29/19 Oxybutynin Chloride [Ditropan XL] 10 mg PO DAILY 02/02/19 05/29/19 Simvastatin [Zocor] 10 mg PO DAILY 02/02/19 05/29/19 sitaGLIPtin [Januvia] 100 mg PO DAILY 02/02/19 05/29/19 Lisinopril [Zestril] 2.5 mg PO HS 02/06/19 05/29/19 Ammonium Lactate Cream [Lac-Hydrin 1 applic TOPICAL BID PRN 04/03/19 05/23/19 12% Cream] Clindamycin Gel [Clindamycin 1 applic TOPICAL BID 04/03/19 05/23/19 Phosphate 1% Gel] Zinc Oxide [Desitin] 1 cream TOPICAL DAILY PRN 04/03/19 05/23/19 Artificial Tears-Hypromellose 1 drops BOTH EYES QID 05/23/19 05/23/19 [Artificial Tear Drops] Bariatric Calcium 500 mg PO DAILY 05/23/19 Bariatric Multivitamin 1 tab PO BID 05/23/19 Ferrous Sulfate [Feosol] 325 mg PO DAILY 05/23/19 05/23/19 Linaclotide [Linzess] 290 mcg PO DAILY 05/23/19 05/29/19 Ocrevus Infusion For Ms 1 dose IV DIRECTED 05/23/19 Previous Rx's Medication Instructions Recorded Magnesium Oxide [Magox 400] 400 mg PO DAILY #60 tablet 05/31/19 ALLERGIES: 1. PREGABALIN. 2. PREDNISONE. 3. SULFA. SOCIAL HISTORY: Lifelong nontobacco user. No alcohol or tobacco abuse. Walks with cane. FAMILY HISTORY: Pertinent for diabetes including morbid obesity. REVIEW OF SYSTEMS: MUSCULOSKELETAL: Recurrent chronic pain of the lower back including joints. GASTROINTESTINAL: Previous history of gastroesophageal reflux disease, resolved. No dumping syndrome. Has chronic constipation. CONSTITUTIONAL: At her height of 5 foot 2-1/2 inches, her ideal body weight is 135 pounds. Her highest weight was 284 pounds. Body mass index was 51.2. HEENT: No reports of troubles with vision or hearing. No dysphagia. ENDOCRINE: Diabetes type 2 resolved. No reports of active thyroid disorder. RESPIRATORY: History of obstructive sleep apnea now improved and resolved. CARDIOVASCULAR: Hypertension, resolved. No reports of hypercholesterolemia. PSYCH: History of posttraumatic stress disorder including anxiety. HEMATOLOGIC: No reports of easy bruising or bleeding. SKIN: No skin cancer. PHYSICAL EXAM: VITAL SIGNS: 5 feet 2-1/2 inches, 222 pounds. Body mass index 40.0. Vital Signs Temp 98.2 F 05/31/19 16:37 Pulse 83 05/31/19 16:37 Resp BP 133/85 05/31/19 16:37 Pulse Ox ABDOMEN: Soft, nontender, nondistended. GENERAL: Well-developed female in no acute distress. HEENT: No sclera icterus. Extraocular movements grossly intact. Moist buccal mucosa. Head is atraumatic, normocephalic. Hears conversational speech. No nasal drainage. NECK: Supple without lymphadenopathy. No JV distention. CHEST: Non-labored respirations and equal bilateral excursions. CARDIOVASCULAR: Regular rate and rhythm. Palpable 2+ radial pulses. MUSCULOSKELETAL: No clubbing, cyanosis or edema. NEUROLOGIC: No focal or lateralizing signs. PSYCH: Appropriate affect. Alert and oriented to person, place and time. SKIN: Well perfused. Good skin turgor. COLONOSCOPY REPORT: Her colonoscopy is negative for polyps. Aronchick preparation quality scale 4 (1-5) Internal hemorrhoids, grade 1 No external prolapsed hemorrhoids. No arteriovenous malformations. No adenomatous polyps. No focal colitis. LABS: Iron within normal limits. ASSESSMENT: 1. Morbid obesity due to excess calories 2. Body mass index reduced from 51.2 down to 40.0 3. Status post Gerson-en-Y gastric bypass. 4. Weight gain following bariatric procedure 5. History of recurrent panniculitis. 6. History of splenic hemangioma. 7. Chronic constipation. 8. Dietary surveillance and counseling. 9. Diabetes type 2, [id number] 10. Iron deficiency anemia 11. Insomnia PLAN: 1. Recommend Magnesium for insomnia 2. Agree with Linzess for chronic constipation 3. Re-check iron for iron deficiency anemia. 4. Increase water intake over 2.5 liters 5. Fiber intake over 25 grams advised.
[2019-05-31 16:39] VITALS: BP 133/85; PULSE 83; TEMP 98.2; BMI 39.9
== END | disposition home or self-care (01) ==
LOC: BARWHC3 14:38
PROVIDERS: ATTEND Surgery Plastic and Reconstructive Surgery
DX: Z48.815 Encounter for surgical aftercare following surgery on the digestive system (principal); E66.01 Morbid (severe) obesity due to excess calories; K59.09 Other constipation; E11.9 Type 2 diabetes mellitus without complications; D50.9 Iron deficiency anemia, unspecified; G47.00 Insomnia, unspecified; Z71.3 Dietary counseling and surveillance; Z68.41 Body mass index [BMI] 40.0-44.9, adult; Z87.2 Personal history of diseases of the skin and subcutaneous tissue; Z86.018 Personal history of other benign neoplasm; Z98.84 Bariatric surgery status; Z79.899 Other long term (current) drug therapy; Z88.2 Allergy status to sulfonamides; Z88.8 Allergy status to other drugs, medicaments and biological substances
CPT/HCPCS: 99211

== ENCOUNTER → 2019-07-04 | Outpatient (CLI) | payer MEDICARE, OTHER ==
--- NOTE | 2019-07-04 12:38 | PN ---
PROGRESS NOTE A 44-year-old female patient who was seen in the [facility] approximately 2 years ago for issues related to obstructive sleep apnea. Back then, the patient was morbidly obese and she undergone bariatric surgery and the patient lost more than 100 pounds. At that time, the evaluation was done for sleep apnea. Showed no significant evidence of any sleep breathing disorder and patient's AHI was less than 5. She was encouraged to lose more weight. There was no need for CPAP therapy. I emphasized on sleep hygiene measures. Note that the sleep study that was done back then showed that the patient was able to generate at least 5 hours and 57 minutes of sleep with an efficiency of 90% with a latency of sleep onset of 28 minutes and latency to REM of 31 minutes. Note that the patient has multiple medical problems and comorbidities. She has been diagnosed having MS and she is being treated with OCREVUS infusions twice a year. She also has chronic migraines, muscle spasm, nerve pain, anxiety/depression and pain with fibromyalgia. Other comorbidities including diabetes, hyperlipidemia, and hypertension, irritable bowel disease with chronic constipation and occasional stress urinary incontinence. All these comorbidities in addition to her poor sleep hygiene measures has facilitated this patient's current insomnia. For now she is having difficulty in falling asleep. She goes to bed around 10-11 pm. Takes her several hours to fall asleep and she gets out of bed between 8 - 9 am in the morning and she claims that she sleeps only a couple of hours, probably between 4 and 8 am. She takes naps during the day. She was chronically fatigued and tired and she was seen by a neurologist who added Adderall 5 mg p.o. twice a day, 1st dose at 9 o'clock. Second dose around 4 o'clock. No TV in the bedroom. She is avoiding caffeinated beverages. She has taken no alcohol. No substance abuse. She MEDICATIONS INCLUDE: Meclizine 12.5 mg p.o. 1-2 tablets 3 times a day, Baclofen 10 mg b.i.d., amitriptyline 50 mg twice a day, Ondansetron 8 mg p.r.n., citalopram 40 mg p.o. q. day, tramadol 50 mg p.o. t.i.d., Januvia 100 mg p.o. q. day, lisinopril 2.5 q. day, simvastatin 10 mg p.o. q. day, clindamycin ointment 1% gel, Artificial Tears, ammonium lactate, Linzess 290 mg p.o. daily for constipation and oxybutynin 10 mg p.o. twice a day. She is also on vitamin C and chewable calcium and vitamin D. REVIEW OF SYSTEMS: A 14-point review of system was done. Positive findings are mentioned in history of present illness. She has various comorbidities including vertigo and chronic migraines which are episodic and ongoing. She also has muscle spasm along with stress urinary incontinence and urine retention related to her MS. Her MS is quite progressing and the patient is being considered for alternative treatments. Currently she is on OCREVUS. She has episodic nausea, she has chronic anxiety and depression, chronic body aches and pains. Diabetes under better control. No major hypoglycemic attacks. She has also issues with acne and intertrigo and hypertension. She has chronic dry eyes and dryness in her skin in addition to chronic constipation. In terms of her sleep, she is not having any major snore. She has gained weight in the order of 30 pounds since her bariatric surgery and since her last evaluation 2 years ago here in the sleep center. PHYSICAL EXAMINATION: BP is 117/83, pulse 96, respirations 16, temperature 98.2, saturation 96% on room air. Height is 5 feet 10 inches, weight is 222. BMI 39.9. Neck size 1.5 inches. GENERAL APPEARANCE: Calm, comfortable head is atraumatic, normocephalic. NECK: Supple. There is no JVD. No goiter neck mass. Mallampati class IV. LUNGS: Clear to auscultation. HEART: Sounds regular rate and rhythm. Normal S1, S2. No S3. No murmurs. ABDOMEN: Soft, nontender. No organomegaly. EXTREMITIES: No edema. No cyanosis or clubbing. NEUROLOGICALLY: The patient is alert and oriented x3. No focal neurological deficits. PSYCHIATRIC: Positive for anxiety and depression. IMPRESSION: 1. Insomnia. The patient has chronic comorbid insomnia, exacerbated further by her multiple comorbidities and poor sleep hygiene measures. 2. History of obesity, status post bariatric surgery with successful weight loss. 3. Chronic fatigue. 4. Diabetes mellitus. 5. Fibromyalgia. 6. Multiple sclerosis. 7. Osteoarthritis. 8. Chronic vertigo. 9. Chronic migraines. 10.Chronic muscle spasm. 11.Chronic. . 12.Chronic nerve pain. 13.Irritable bowel syndrome. 14.Chronic constipation. 15.Stress urinary incontinence. PLAN: Unfortunately, there was a significant level of sleep hygiene issues with this patient. My recommendation is to improve overall sleep hygiene measures. Encourage weight loss knowing the patient has gained about 30 pounds. In terms of her chronic insomnia, would like to apply sleep restriction. The patient is to go to the get out of bed at around 6 a.m. in the morning. This will be she will not take any naps during the day. She will take her first dose of Adderall at 7 am and the second dose at 1 am. Avoid caffeinated beverages in ate late afternoon and early evening. I will avoid alcoholic beverages. She can stimulate herself with caffeinated beverages mainly in the morning. I am hoping that with hygiene measures and sleep restriction we should be able to achieve a better sleep quality. Continue amitriptyline at bedtime. Take citalopram in the morning. Provide the patient adequate pain control. Comorbidities will be all treated. Contact me back if the situation gets worse. No need for sleep study at this point in time. MMODL / IJN: [id number] /
== END ==
LOC: SLEEP 10:55
PROVIDERS: ATTEND Internal Medicine Critical Care Medicine
DX: G47.10 Hypersomnia, unspecified (principal); E11.9 Type 2 diabetes mellitus without complications; M79.7 Fibromyalgia; G35 Multiple sclerosis; M19.90 Unspecified osteoarthritis, unspecified site; R42 Dizziness and giddiness; G43.909 Migraine, unspecified, not intractable, without status migrainosus; M62.838 Other muscle spasm; K58.9 Irritable bowel syndrome, unspecified; K59.09 Other constipation; K58.1 Irritable bowel syndrome with constipation; N39.3 Stress incontinence (female) (male); M79.2 Neuralgia and neuritis, unspecified; E66.9 Obesity, unspecified; Z98.84 Bariatric surgery status; R53.82 Chronic fatigue, unspecified; Z79.899 Other long term (current) drug therapy; Z79.891 Long term (current) use of opiate analgesic

== ENCOUNTER → 2019-07-06 | Outpatient (CLI) | payer MEDICARE, OTHER ==
[2019-07-06 16:05] LABS: Iron Saturation 19.09 (12.00-45.00)
== END | disposition home or self-care (01) ==
LOC: LABWHC1 09:47
PROVIDERS: ATTEND Surgery Plastic and Reconstructive Surgery
DX: D50.8 Other iron deficiency anemias (principal)
CPT/HCPCS: 36415; 82728; 83540; 83550

== ENCOUNTER → 2019-08-30 | Outpatient (CLI) | payer MEDICARE, OTHER ==
[2019-08-30 11:40] LABS: Basophils % (A) 0 %; Eosinophils # (A) 0.2 k/uL (0-0.7); Eosinophils % (A) 3 %; HCT 41.9 % (34.0-46.0); HGB 14.3 gm/dL (11.4-16.0); Lymphocytes # (A) 2.4 k/uL (1.0-4.8); Lymphocytes % (A) 30 %; MCH 30.1 pg (25.0-35.0); MCHC 34.1 g/dL (31.0-37.0); MCV 88.2 fL (80.0-100.0); Monocytes # (A) 0.5 k/uL (0-1.0); Monocytes % (A) 6 %; Neutrophils # (A) 4.8 k/uL (1.3-7.7); Neutrophils % (A) 59 %; Platelet Count 370 k/uL (150-450); RBC 4.76 m/uL (3.80-5.40); RDW 12.5 % (11.5-15.5); WBC 8.2 k/uL (3.8-10.6)
[2019-08-30 17:02] LABS: African American GFR (CKD) 120.4 (60.0-200.0); Albumin 4.4 g/dL (3.80-4.90); Albumin/Globulin Ratio 2.1 (1.60-3.17); Anion Gap 8.6 mmol/L (4.00-12.00); BUN/Creat Ratio 21.43 Ratio (12.00-20.00); Calcium 9.5 mg/dL (8.7-10.3); Carbon Dioxide 24.4 mmol/L (21.6-31.8); Globulin 2.1 g/dL (1.6-3.3); Non-African American GFR(CKD) 103.9 (60.0-200.0); Potassium 4.7 mmol/L (3.5-5.5); Total Bilirubin 0.6 mg/dL (0.3-1.2); Total Protein 6.5 g/dL (6.2-8.2)
[2019-08-30 17:12] LABS: Vitamin D 25 Hydroxy 28.6 ng/mL (30.0-100.0)
[2019-08-30 17:29] LABS: Hemoglobin A1C 6.2 % (4.0-6.0)
[2019-08-30 17:32] LABS: Hepatitis B Core IgM Non-Reactive (Non-Reactive); Hepatitis B Surface AB- Quant 3.5 mIU/mL; Hepatitis B Surface Antibody Non-Reactive (Non-Reactive); Hepatitis B Surface Antigen Non-Reactive (Non-Reactive)
[2019-09-01 06:58] LABS: Vit B1(Thiamine) 150 ug/L (38-122)
[2019-09-01 15:27] LABS: HTLV-1 and 2 (EIA) Negative (Negative)
== END | disposition home or self-care (01) ==
LOC: LABWHC1 10:17
PROVIDERS: ATTEND Psychiatry & Neurology Pain Medicine
DX: G35 Multiple sclerosis (principal); E55.9 Vitamin D deficiency, unspecified; R53.82 Chronic fatigue, unspecified
CPT/HCPCS: 36415; 80053; 82306; 82607; 83036; 84207; 84425; 84439; 84443; 84481; 85025; 86704; 86705; 86706; 86787; 86790; 87340

== ENCOUNTER 2019-12-09 11:23 | Emergency (ER) | payer MEDICARE, OTHER ==
[2019-12-09] MEDS ORDERED: ACETAMINOPHEN TAB 500 MG TAB PO STA (11:33)
--- NOTE | 2019-12-09 11:36 | ED ---
Lower Extremity Injury HPI - General Chief Complaint: Extremity Injury, Lower Stated Complaint: toe injury Time Seen by Provider: 12/09/19 11:28 Source: patient Mode of arrival: ambulatory Limitations: no limitations - History of Present Illness Initial Comments: Patient is a 44-year-old female presenting to the emergency department with a chief complaint of toe pain. Patient states 3 days ago she had a barstool falling on her left foot especially her toe and second digit. Patient reports severe pain that has gradually decreased in severity. Patient states initially she had erythema and swelling in the region which gradually turned into ecchymosis but has not decreased in severity. Patient also reports some midfoot tenderness. She does report taking tramadol home for pain. Patient states that she is unable to fully ambulate and uses a cane now. Denies any numbness or tingling. - Related Data Home Medications Medication Instructions Recorded Confirmed Citalopram Hydrobromide [CeleXA] 40 mg PO DAILY 04/15/14 05/29/19 Biotin 10,000 mcg PO DAILY 04/29/16 05/29/19 Baclofen 10 mg PO TID 06/28/17 05/29/19 Amitriptyline HCl [Elavil] 50 mg PO DAILY 04/14/18 05/29/19 Meclizine [Antivert] 12.5 mg PO TID 04/14/18 05/29/19 Ondansetron HCl [Zofran] 8 mg PO BID PRN 04/14/18 05/23/19 traMADol HCL [Ultram] 50 mg PO TID 04/14/18 05/29/19 Ascorbic Acid [Vitamin C] 500 mg PO BID 02/02/19 05/29/19 Oxybutynin Chloride [Ditropan XL] 10 mg PO DAILY 02/02/19 05/29/19 Simvastatin [Zocor] 10 mg PO DAILY 02/02/19 05/29/19 sitaGLIPtin [Januvia] 100 mg PO DAILY 02/02/19 05/29/19 Lisinopril [Zestril] 2.5 mg PO HS 02/06/19 05/29/19 Ammonium Lactate Cream [Lac-Hydrin 1 applic TOPICAL BID PRN 04/03/19 05/23/19 12% Cream] Clindamycin Gel [Clindamycin 1 applic TOPICAL BID 04/03/19 05/23/19 Phosphate 1% Gel] Zinc Oxide [Desitin] 1 cream TOPICAL DAILY PRN 04/03/19 05/23/19 Artificial Tears-Hypromellose 1 drops BOTH EYES QID 05/23/19 05/23/19 [Artificial Tear Drops] Bariatric Calcium 500 mg PO DAILY 05/23/19 Bariatric Multivitamin 1 tab PO BID 05/23/19 Ferrous Sulfate [Feosol] 325 mg PO DAILY 05/23/19 05/23/19 Linaclotide [Linzess] 290 mcg PO DAILY 05/23/19 05/29/19 Ocrevus Infusion For Ms 1 dose IV DIRECTED 05/23/19 Previous Rx's Medication Instructions Recorded Magnesium Oxide [Magox 400] 400 mg PO DAILY #60 tablet 05/31/19 Allergies Allergy/AdvReac Type Severity Reaction Status Date / Time pregabalin [From Lyrica] Allergy Severe Anaphylaxis Verified 12/09/19 11:24 Sulfa (Sulfonamide Allergy Severe Anaphylaxis, Verified 12/09/19 11:24 Antibiotics) Rash/Hives Review of Systems ROS Statement: Those systems with pertinent positive or pertinent negative responses have been documented in the HPI. ROS Other: All systems not noted in ROS Statement are negative. Past Medical History Past Medical History: Diabetes Mellitus, Fibromyalgia, GERD/Reflux, Musculoske letal Disorder, Osteoarthritis (OA), Skin Disorder, Sleep Apnea/CPAP/BIPAP Additional Past Medical History / Comment(s): degenerative arthritis with chronic bilateral hip pain, history of bursitis, irritable bowel syndrome, hiatal hernia history of H. pylori that was treated with antibiotics, umbilical hernia, MS diagnosed (2014)., Sleep Apnea resolved with wt loss , osteopenia, Acne, Occasional Sores under abdominal apron., GERD resolved ., Incontinence controlled with RX., States Lisinopril used to protect kidneys., MS causes muscle spasms, migraines, fatigue, vertigo., uses cane ., states Constipation. History of Any Multi-Drug Resistant Organisms: None Reported Past Surgical History: Bariatric Surgery, Cholecystectomy, Hysterectomy, Joint Replacement, Orthopedic Surgery, Uterine Ablation Additional Past Surgical History / Comment(s): BILAT CARPAL TUNNEL RELEASE. 11-18-15 [facility]. BILAT KNEE ARTHROSCOPY. RT ROTATOR CUFF REPAIR. COLONOSCOPY, EGD, L knee replacment Past Anesthesia/Blood Transfusion Reactions: Motion Sickness, Postoperative Nausea & Vomiting (PONV) Additional Past Anesthesia/Blood Transfusion Reaction / Comment(s): CLAUSTERPHOBIA Past Psychological History: Anxiety, Depression, PTSD Smoking Status: Never smoker Past Alcohol Use History: None Reported Past Drug Use History: None Reported - Past Family History Mother Family Medical History: Diabetes Mellitus, Hyperlipidemia, Hypertension Additional Family Medical History / Comment(s): OBESITY, DEPRESSION. GRANDFATHER HAD DVT Father Family Medical History: Coronary Artery Disease (CAD), Diabetes Mellitus, Hyperlipidemia, Hypertension, Myocardial Infarction ([place]), Renal Disease Additional Family Medical History / Comment(s): GOUT, CARDIAC STENTS General Exam Limitations: no limitations General appearance: alert, in no apparent distress Head exam: Present: atraumatic, normocephalic, normal inspection Eye exam: Present: normal appearance Pupils: Present: normal accommodation ENT exam: Present: normal exam, normal oropharynx, mucous membranes moist Neck exam: Present: normal inspection, full ROM Respiratory exam: Present: normal lung sounds bilaterally Cardiovascular Exam: Present: regular rate, normal rhythm, normal heart sounds Extremities exam: Present: tenderness (Tenderness of the left toe.), normal capillary refill, other (+2 dorsalis pedis and posterior tibialis bilaterally.). Absent: normal inspection (Mild swelling and ecchymosis on the left hallux.), full ROM (Limited range of motion in the left toe due to pain.) Back exam: Present: normal inspection, full ROM Neurological exam: Present: alert, oriented X3 Psychiatric exam: Present: normal affect, normal mood Skin exam: Present: warm, dry, intact, normal color Course Vital Signs 12/09/19 11:24 Temperature 99.3 F Pulse Rate 109 H Respiratory 18 Rate Blood Pressure 140/90 O2 Sat by Pulse 97 Oximetry Medical Decision Making - Medical Decision Making Patient is a 44-year-old female presenting to the emergency department with a chief complaint of foot pain. Exam patient does have some swelling, tenderness and mild ecchymosis on the left looks. Patient also has some midfoot tenderness. No medial or lateral malleoli tenderness. X-ray of the foot shows no signs of fractures. The patient suffered a foot contusion. Patient will be given a orthopedic boot. Patient uses a cane to ambulate. Patient states that she has an appointment with orthopedics in a few days. Patient advised to alternate between Tylenol and Motrin for pain control. Patient advised to keep leg elevated and apply ice compress to minimize symptoms. Strict return parameters were thoroughly discussed the patient was understanding and agreeable. Case discussed with physician. Disposition Clinical Impression: Contusion of foot, left, Toe trauma Disposition: HOME SELF-CARE Condition: Stable Instructions (If sedation given, give patient instructions): Foot Sprain (ED) Additional Instructions: Continue using boot. Alternate between Tylenol and Motrin for pain control. Apply ice compress to minimize symptoms. Follow-up with orthopedics if symptoms not improved. Return to emergency department if you have any concerns. Is patient prescribed a controlled substance at d/c from ED?: No Referrals: Aneudy Díaz DO [Primary Care Provider] - 1-2 days Time of Disposition: 12:28
--- NOTE | 2019-12-09 12:12 | XR ---
EXAMINATION TYPE: XR foot complete LT , 3 VIEWS DATE OF EXAM ORDERED: 12/09/2019 HISTORY: toe trauma. COMPARISON: Previous study dated 04/16/2014. FINDINGS: No fracture, dislocation or other acute osseous lesion is seen. Note is made of both plant ar and Achilles calcaneal spurs. IMPRESSION: NO ACUTE OSSEOUS LESION.
[2019-12-09 12:48] VITALS: BP 138/74; PULSE 85; RESP 16; TEMP 98
== END 2019-12-09 12:47 | disposition home or self-care (01) ==
LOC: EC 11:23
DX: S90.32XA Contusion of left foot, initial encounter (principal); E11.9 Type 2 diabetes mellitus without complications; M79.7 Fibromyalgia; M19.90 Unspecified osteoarthritis, unspecified site; G47.30 Sleep apnea, unspecified; Z99.89 Dependence on other enabling machines and devices; M16.0 Bilateral primary osteoarthritis of hip; F41.9 Anxiety disorder, unspecified; F32.9 Major depressive disorder, single episode, unspecified; F43.10 Post-traumatic stress disorder, unspecified; Z96.652 Presence of left artificial knee joint; Z79.891 Long term (current) use of opiate analgesic; Z79.84 Long term (current) use of oral hypoglycemic drugs; Z79.899 Other long term (current) drug therapy; Z88.8 Allergy status to other drugs, medicaments and biological substances; Z88.2 Allergy status to sulfonamides; W20.8XXA Other cause of strike by thrown, projected or falling object, initial encounter; Y92.009 Unspecified place in unspecified non-institutional (private) residence as the place of occurrence of the external cause
CPT/HCPCS: 99283

== ENCOUNTER → 2020-01-01 | Outpatient (CLI) | payer MEDICARE, OTHER ==
--- NOTE | 2020-01-01 13:34 | XR ---
EXAMINATION TYPE: XR foot complete RT DATE OF EXAM: 01/01/2020 COMPARISON: None HISTORY: Right foot pain x1 week TECHNIQUE: Three-view right foot FINDINGS: No acute fractures or dislocations are evident. There is some minimal valgus deformity of t he distal phalanx second digit right foot. Joint spaces otherwise appear preserved. Plantar and Achil les tendon calcaneal heel spurs are present. Soft tissues are unremarkable. IMPRESSION: 1. No acute osseous abnormality right foot
== END | disposition home or self-care (01) ==
LOC: RADXRMAIN 12:49
PROVIDERS: ATTEND Podiatrist Foot Surgery
DX: S90.851S Superficial foreign body, right foot, sequela (principal)

== ENCOUNTER 2020-01-04 10:48 | Emergency (ER) | payer MEDICARE, OTHER ==
[2020-01-04 11:16] VITALS: RESP 18
--- NOTE | 2020-01-04 12:19 | ED ---
General Adult HPI - General Chief complaint: GI Bleed Stated complaint: Hemorrhoids Time Seen by Provider: 01/04/20 11:35 Source: patient, RN notes reviewed Mode of arrival: ambulatory Limitations: no limitations - History of Present Illness Initial comments: Patient is a 44-year-old female presents to the emergency room today with chief complaint of hemorrhoids. She does not that she had a slip and fall several weeks back when she landed on her tailbone since that time she's had some pain and had increased problems with hemorrhoids. She states that she's had hemorrhoids for a long time, more swollen and she's had a more difficult time having a bowel movement. She has been using laxative. She states she is followed up with family physician/door slinger also seeing GI. She was referred to see a surgeon. She states she is unable to make an appointment arch. The patient states that she was told that the surgery was here the hospital today and advised come to the ER. Patient denies any other complaints or symptoms. Patient denies any recent fever, chills, shortness of breath, chest pain, back pain, abdominal pain, nausea or vomiting, numbness or tingling, headaches or visual changes, or any other complaints. - Related Data Home Medications Medication Instructions Recorded Confirmed Citalopram Hydrobromide [CeleXA] 40 mg PO DAILY 04/15/14 05/29/19 Biotin 10,000 mcg PO DAILY 04/29/16 05/29/19 Baclofen 10 mg PO TID 06/28/17 05/29/19 Amitriptyline HCl [Elavil] 50 mg PO DAILY 04/14/18 05/29/19 Meclizine [Antivert] 12.5 mg PO TID 04/14/18 05/29/19 Ondansetron HCl [Zofran] 8 mg PO BID PRN 04/14/18 05/23/19 traMADol HCL [Ultram] 50 mg PO TID 04/14/18 05/29/19 Ascorbic Acid [Vitamin C] 500 mg PO BID 02/02/19 05/29/19 Oxybutynin Chloride [Ditropan XL] 10 mg PO DAILY 02/02/19 05/29/19 Simvastatin [Zocor] 10 mg PO DAILY 02/02/19 05/29/19 sitaGLIPtin [Januvia] 100 mg PO DAILY 02/02/19 05/29/19 Lisinopril [Zestril] 2.5 mg PO HS 02/06/19 05/29/19 Ammonium Lactate Cream [Lac-Hydrin 1 applic TOPICAL BID PRN 04/03/19 05/23/19 12% Cream] Clindamycin Gel [Clindamycin 1 applic TOPICAL BID 04/03/19 05/23/19 Phosphate 1% Gel] Zinc Oxide [Desitin] 1 cream TOPICAL DAILY PRN 04/03/19 05/23/19 Artificial Tears-Hypromellose 1 drops BOTH EYES QID 05/23/19 05/23/19 [Artificial Tear Drops] Bariatric Calcium 500 mg PO DAILY 05/23/19 Bariatric Multivitamin 1 tab PO BID 05/23/19 Ferrous Sulfate [Feosol] 325 mg PO DAILY 05/23/19 05/23/19 Linaclotide [Linzess] 290 mcg PO DAILY 05/23/19 05/29/19 Ocrevus Infusion For Ms 1 dose IV DIRECTED 05/23/19 Previous Rx's Medication Instructions Recorded Magnesium Oxide [Magox 400] 400 mg PO DAILY #60 tablet 05/31/19 Hydrocortisone [Anusol-Hc] 1 applic RECTAL TID #1 gm 01/04/20 Lidocaine [Lidocaine 5% Rectal 1 applic RECTAL QID PRN #15 gm 01/04/20 Cream] Allergies Allergy/AdvReac Type Severity Reaction Status Date / Time pregabalin [From Lyrica] Allergy Severe Anaphylaxis Verified 01/04/20 11:12 Sulfa (Sulfonamide Allergy Severe Anaphylaxis, Verified 01/04/20 11:12 Antibiotics) Rash/Hives Review of Systems ROS Statement: Those systems with pertinent positive or pertinent negative responses have been documented in the HPI. ROS Other: All systems not noted in ROS Statement are negative. Past Medical History Past Medical History: Diabetes Mellitus, Fibromyalgia, GERD/Reflux, Musculoskeletal Disorder, Osteoarthritis (OA), Skin Disorder, Sleep Apnea/CPAP/BIPAP Additional Past Medical History / Comment(s): degenerative arthritis with chronic bilateral hip pain, history of bursitis, irritable bowel syndrome, hiatal hernia history of H. pylori that was treated with antibiotics, umbilical hernia, MS diagnosed (2014)., Sleep Apnea resolved with wt loss , osteopenia, Acne, Occasional Sores under abdominal apron., GERD resolved ., Incontinence controlled with RX., States Lisinopril used to protect kidneys., MS causes muscle spasms, migraines, fatigue, vertigo., uses cane ., states Constipation. History of Any Multi-Drug Resistant Organisms: None Reported Past Surgical History: Bariatric Surgery, Cholecystectomy, Hysterectomy, Joint Replacement, Orthopedic Surgery, Uterine Ablation Additional Past Surgical History / Comment(s): BILAT CARPAL TUNNEL RELEASE. 11-18-15 [facility]. BILAT KNEE ARTHROSCOPY. RT ROTATOR CUFF REPAIR. COLONOSCOPY, EGD, L knee replacment Past Anesthesia/Blood Transfusion Reactions: Motion Sickness, Postoperative Nausea & Vomiting (PONV) Additional Past Anesthesia/Blood Transfusion Reaction / Comment(s): CLAUSTERPHHINA [place] Past Psychological History: Anxiety, Depression, PTSD Smoking Status: Never smoker Past Alcohol Use History: None Reported Past Drug Use History: None Reported - Past Family History Mother Family Medical History: Diabetes Mellitus, Hyperlipidemia, Hypertension Additional Family Medical History / Comment(s): OBESITY, DEPRESSION. GRANDFATHER HAD DVT Father Family Medical History: Coronary Artery Disease (CAD), Diabetes Mellitus, Hyperlipidemia, Hypertension, Myocardial Infarction ([place]), Renal Disease Additional Family Medical History / Comment(s): GOUT, CARDIAC STENTS General Exam - General Exam Comments Initial Comments: General: The patient is awake and alert, in no distress, and does not appear acutely ill. Eye: There is normal conjunctiva bilaterally. No signs of icterus. Musculoskeletal: Normal ROM, no tenderness. Neurological: A&O x 3. CN II-XII intact, There are no obvious motor or sensory deficits. Coordination appears grossly intact. Speech is normal. Skin: Skin is warm and dry and no rashes or lesions are noted. Psychiatric: Cooperative, appropriate mood & affect, normal judgment. : BRUSH MAKER present present for exam. Patient does have 4-5 moderate size hemorrhoids. No active bleeding. Limitations: no limitations Course Vital Signs 01/04/20 11:13 Temperature 98.6 F Pulse Rate 104 H Respiratory 18 Rate Blood Pressure 142/88 O2 Sat by Pulse 96 Oximetry Medical Decision Making - Medical Decision Making Patient was seen here the emergency room by her surgeon Dr. Jung who does recommend cool compresses to the area along with lidocaine and steroid cream. Patient will follow-up with surgeon. She'll be discharged home. Disposition Clinical Impression: Hemorrhoids Disposition: HOME SELF-CARE Condition: Good Instructions (If sedation given, give patient instructions): Hemorrhoids (ED) Additional Instructions: Please follow-up here surgeon as discussed. Prescriptions: Hydrocortisone [Anusol-Hc] 1 applic RECTAL TID #1 gm Lidocaine [Lidocaine 5% Rectal Cream] 1 applic RECTAL QID PRN #15 gm PRN Reason: Pain Is patient prescribed a controlled substance at d/c from ED?: No Referrals: Aneudy Díaz DO [Primary Care Provider] - 1-2 days
--- NOTE | 2020-01-04 12:47 | P.GSCN ---
History of Present Illness Consult date: 01/04/20 History of present illness: DATE OF SERVICE: 01/04/2020 CHIEF COMPLAINT: Pelvic internal/external hemorrhoids HISTORY OF PRESENT ILLNESS: Jes Dhaliwal is a 44-year-old female with chronic constipation. She presents today in the emergency room with reports of rectal pain for 3 days. She comes in with complicated external and internal hemorrhoids, no bleeding. She reports falling several weeks ago and since then having troubles with constipation. She reports she is unable to sit down secondary to the pain. She had passed colonoscopy over 2-3 years ago. She presents to the emergency room for uncontrolled perirectal pain. PAST MEDICAL HISTORY: 1. Morbid obesity, BMI 51.2, initial. 2. Prior history of insulin-dependent diabetes. 3. Gastroesophageal reflux disease. 4. Posttraumatic stress disorder. 5. Anxiety. 6. Depression. 7. Panniculitis. PAST SURGICAL HISTORY: 1. Status post Gerson-en-Y gastric bypass. 2. Upper endoscopy. 3. Diagnostic laparoscopy. MEDICATIONS: See list ALLERGIES: 1. PREGABALIN. 2. PREDNISONE. 3. SULFA. SOCIAL HISTORY: Lifelong nontobacco user. No alcohol or tobacco abuse. Walks with cane. FAMILY HISTORY: Pertinent for diabetes including morbid obesity. REVIEW OF SYSTEMS: MUSCULOSKELETAL: Recurrent chronic pain of the lower back including joints. GASTROINTESTINAL: Previous history of gastroesophageal reflux disease, resolved. No dumping syndrome. Has chronic constipation. CONSTITUTIONAL: At her height of 5 foot 2-1/2 inches, her ideal body weight is 135 pounds. Her highest weight was 284 pounds. Body mass index was 51.2. HEENT: No reports of troubles with vision or hearing. No dysphagia. ENDOCRINE: Diabetes type 2 resolved. No reports of active thyroid disorder. RESPIRATORY: History of obstructive sleep apnea now improved and resolved. CARDIOVASCULAR: Hypertension, resolved. No reports of hypercholesterolemia. PSYCH: History of posttraumatic stress disorder including anxiety. HEMATOLOGIC: No reports of easy bruising or bleeding. SKIN: No skin cancer. PHYSICAL EXAM: VITAL SIGNS: 5 feet 2-1/2 inches, 224 pounds. Body mass index 40.0. Vital Signs Temp 99 F 01/04/20 12:49 Pulse 99 01/04/20 12:49 Resp 18 01/04/20 12:49 BP 150/94 02/13/20 12:49 Pulse Ox 98 01/04/20 12:49 Intake & Output 01/03/20 01/04/20 01/04/20 18:59 06:59 18:59 Weight 102.058 kg ABDOMEN: Soft, nontender, nondistended. GENERAL: Well-developed female in no acute distress. HEENT: No sclera icterus. Extraocular movements grossly intact. Moist buccal mucosa. Head is atraumatic, normocephalic. Hears conversational speech. No nasal drainage. NECK: Supple without lymphadenopathy. No JV distention. CHEST: Non-labored respirations and equal bilateral excursions. CARDIOVASCULAR: Regular rate and rhythm. Palpable 2+ radial pulses. MUSCULOSKELETAL: No clubbing, cyanosis or edema. NEUROLOGIC: No focal or lateralizing signs. PSYCH: Appropriate affect. Alert and oriented to person, place and time. SKIN: Well perfused. Good skin turgor. RECTUM: Complicated grade 4 hemorrhoids without bleeding, internal and external. ASSESSMENT: 1. Complicated internal/external hemorrhoids, grade 4 2. Morbid obesity due to excess calories 3. Body mass index reduced from 51.2 down to 40.0 4. Status post Gerson-en-Y gastric bypass. 5. Weight gain following bariatric procedure 6. Chronic constipation. 7. Diabetes type 2, [id number] PLAN: 1. No acute surgical intervention needed 2. Recommend rectal steroid suppository for swelling 3. May use Preparation H tucks 4. Cold compress along hemorrhoids 5. Lidocaine cream/jelly for pain. Past Medical History Past Medical History: Diabetes Mellitus, Fibromyalgia, GERD/Reflux, Musculoskeletal Disorder, Osteoarthritis (OA), Skin Disorder, Sleep Apnea/C PAP/BIPAP Additional Past Medical History / Comment(s): degenerative arthritis with chronic bilateral hip pain, history of bursitis, irritable bowel syndrome, hiatal hernia history of H. pylori that was treated with antibiotics, umbilical hernia, MS diagnosed (2014)., Sleep Apnea resolved with wt loss , osteopenia, Acne, Occasional Sores under abdominal apron., GERD resolved ., Incontinence controlled with RX., States Lisinopril used to protect kidneys., MS causes muscle spasms, migraines, fatigue, vertigo., uses cane ., states Constipation. History of Any Multi-Drug Resistant Organisms: None Reported Past Surgical History: Bariatric Surgery, Cholecystectomy, Hysterectomy, Joint Replacement, Orthopedic Surgery, Uterine Ablation Additional Past Surgical History / Comment(s): BILAT CARPAL TUNNEL RELEASE. 11-18-15 [facility]. BILAT KNEE ARTHROSCOPY. RT ROTATOR CUFF REPAIR. COLONOSCOPY, EGD, L knee replacment Past Anesthesia/Blood Transfusion Reactions: Motion Sickness, Postoperative Nausea & Vomiting (PONV) Additional Past Anesthesia/Blood Transfusion Reaction / Comm: CLAUSTERPHOBIA Past Psychological History: Anxiety, Depression, PTSD Smoking Status: Never smoker Past Alcohol Use History: None Reported Past Drug Use History: None Reported - Past Family History Mother Family Medical History: Diabetes Mellitus, Hyperlipidemia, Hypertension Additional Family Medical History / Comment(s): OBESITY, DEPRESSION. GRANDFATHER HAD DVT Father Family Medical History: Coronary Artery Disease (CAD), Diabetes Mellitus, Hyperlipidemia, Hypertension, Myocardial Infarction ([place]), Renal Disease Additional Family Medical History / Comment(s): GOUT, CARDIAC STENTS Medications and Allergies Home Medications Medication Instructions Recorded Confirmed Type Citalopram Hydrobromide [CeleXA] 40 mg PO DAILY 04/15/14 05/29/19 History Biotin 10,000 mcg PO DAILY 04/29/16 05/29/19 History Baclofen 10 mg PO TID 06/28/17 05/29/19 History Amitriptyline HCl [Elavil] 50 mg PO DAILY 04/14/18 05/29/19 History Meclizine [Antivert] 12.5 mg PO TID 04/14/18 05/29/19 History Ondansetron HCl [Zofran] 8 mg PO BID PRN 04/14/18 05/23/19 History traMADol HCL [Ultram] 50 mg PO TID 04/14/18 05/29/19 History Ascorbic Acid [Vitamin C] 500 mg PO BID 02/02/19 05/29/19 History Oxybutynin Chloride [Ditropan XL] 10 mg PO DAILY 02/02/19 05/29/19 History Simvastatin [Zocor] 10 mg PO DAILY 02/02/19 05/29/19 History sitaGLIPtin [Januvia] 100 mg PO DAILY 02/02/19 05/29/19 History Lisinopril [Zestril] 2.5 mg PO HS 02/06/19 05/29/19 History Ammonium Lactate Cream [Lac-Hydrin 1 applic TOPICAL BID PRN 04/03/19 05/23/19 History 12% Cream] Clindamycin Gel [Clindamycin 1 applic TOPICAL BID 04/03/19 05/23/19 History Phosphate 1% Gel] Zinc Oxide [Desitin] 1 cream TOPICAL DAILY PRN 04/03/19 05/23/19 History Artificial Tears-Hypromellose 1 drops BOTH EYES QID 05/23/19 05/23/19 History [Artificial Tear Drops] Bariatric Calcium 500 mg PO DAILY 05/23/19 History Bariatric Multivitamin 1 tab PO BID 05/23/19 History Ferrous Sulfate [Feosol] 325 mg PO DAILY 05/23/19 05/23/19 History Linaclotide [Linzess] 290 mcg PO DAILY 05/23/19 05/29/19 History Ocrevus Infusion For Ms 1 dose IV DIRECTED 05/23/19 History Magnesium Oxide [Magox 400] 400 mg PO DAILY #60 tablet 05/31/19 Rx Hydrocortisone [Anusol-Hc] 1 applic RECTAL TID #1 gm 01/04/20 Rx Lidocaine [Lidocaine 5% Rectal 1 applic RECTAL QID PRN #15 gm 01/04/20 Rx Cream] Allergies Allergy/AdvReac Type Severity Reaction Status Date / Time pregabalin [From Lyrica] Allergy Severe Anaphylaxis Verified 01/04/20 11:12 Sulfa (Sulfonamide Allergy Severe Anaphylaxis, Verified 01/04/20 11:12 Antibiotics) Rash/Hives Surgical - Exam Vital Signs Temp Pulse Resp BP Pulse Ox 98.6 F 104 H 18 142/88 96 01/04/20 11:13 01/04/20 11:13 01/04/20 11:13 01/04/20 11:13 01/04/20 11:13 Assessment and Plan (1) Hemorrhoids, complicated Status: Acute Code(s): K64.8 - OTHER HEMORRHOIDS SNOMED Code(s): 40884913 (2) Prolapsed internal hemorrhoids, grade 4 Status: Acute Code(s): K64.3 - FOURTH DEGREE HEMORRHOIDS SNOMED Code(s): 40983109384375614 (3) Rectal pain Status: Acute Code(s): K62.89 - OTHER SPECIFIED DISEASES OF ANUS AND RECTUM SNOMED Code(s): 10670548 (4) Depression Status: Acute Code(s): F32.9 - MAJOR DEPRESSIVE DISORDER, SINGLE EPISODE, UNSPECIFIED SNOMED Code(s): 83095033 (5) History of Gerson-en-Y gastric bypass Status: Acute Code(s): Z98.84 - BARIATRIC SURGERY STATUS SNOMED Code(s): 833460307 (6) Chronic constipation Status: Chronic Code(s): K59.09 - OTHER CONSTIPATION SNOMED Code(s): 307931425 (7) Diabetes type 2, uncontrolled Status: Chronic Code(s): E11.65 - TYPE 2 DIABETES MELLITUS WITH HYPERGLYCEMIA SNOMED Code(s): 630829961 (8) Morbid obesity with BMI of 40.0-44.9, adult Status: Acute Code(s): E66.01 - MORBID (SEVERE) OBESITY DUE TO EXCESS CALORIES; Z68.41 - BODY MASS INDEX (BMI) 40.0-44.9, ADULT SNOMED Code(s): 340838813
[2020-01-04 12:55] VITALS: BP 150/94; PULSE 99; TEMP 99
== END 2020-01-04 12:49 | disposition home or self-care (01) ==
LOC: EC 10:48
DX: K64.4 Residual hemorrhoidal skin tags (principal); K64.3 Fourth degree hemorrhoids; E66.01 Morbid (severe) obesity due to excess calories; K58.1 Irritable bowel syndrome with constipation; F32.9 Major depressive disorder, single episode, unspecified; E11.65 Type 2 diabetes mellitus with hyperglycemia; G35 Multiple sclerosis; F41.9 Anxiety disorder, unspecified; M79.7 Fibromyalgia; M19.90 Unspecified osteoarthritis, unspecified site; Z79.4 Long term (current) use of insulin; Z79.899 Other long term (current) drug therapy; Z79.891 Long term (current) use of opiate analgesic; Z88.2 Allergy status to sulfonamides; Z88.8 Allergy status to other drugs, medicaments and biological substances; Z68.41 Body mass index [BMI] 40.0-44.9, adult; Z98.84 Bariatric surgery status; Z87.19 Personal history of other diseases of the digestive system; Z99.89 Dependence on other enabling machines and devices; Z90.49 Acquired absence of other specified parts of digestive tract; Z96.652 Presence of left artificial knee joint; Z98.890 Other specified postprocedural states; W01.0XXA Fall on same level from slipping, tripping and stumbling without subsequent striking against object, initial encounter
CPT/HCPCS: 99285

== ENCOUNTER → 2020-01-04 | Outpatient (CLI) | payer MEDICARE, OTHER | END | disposition home or self-care (01) | LOC: LABWHC1 13:31 | PROVIDERS: ATTEND Dermatology | DX: D48.5 Neoplasm of uncertain behavior of skin (principal) | CPT/HCPCS: 36415; 86038 ==

== ENCOUNTER → 2020-06-20 | Outpatient (CLI) | payer MEDICARE, OTHER ==
[2020-06-20 14:22] VITALS: BP 121/83; PULSE 86; RESP 18; TEMP 98.5
--- NOTE | 2020-06-20 14:41 | P.GSHP ---
History of Present Illness H&P Date: 06/20/20 Chief Complaint: nipple discharge Jes is a 45 year old white female seen in consultation for Dr. Díaz with a complaint of bilateral nipple discharge. She has had bilateral nipple discharge for several years, this was felt to be fibrocystic in nature. Recently the right side became slight in nature. She has had a recent bilateral mammogram performed on 2619 which was benign however right breast ultrasound was recommended this was done negative BIRADS 1 and routine mammogram of both breasts 1 year recommended. She complains both breasts are nodular however nothing has changed recently. She is not complaining of any pain in her breast. Caffeine: Diet Coke 20 ounces a day Nicotine: Negative Theophylline: Occasional Hormones: Negative Family history: paternal grandmother: colon cancer paternal aunts (2): breast cancer Hormonal history: Menarche: 9 , breast fed: none, age at first : 20 Hysterectomy at 37 for bleeding Hormones: Negative Surgical history: Left knee replacement Small bowel obstruction Bariatric surgery Right rotator cuff surgery Hysterectomy Uterine ablation/tubal ligation Right knee meniscus tear Right carpal tunnel Left carpal tunnel Cholecystectomy A lateral release left knee Schedule July 23 for right hip replacement Medical history Multiple sclerosis Migraines Osteoarthritis Fatigue Incontinence Iron deficiency anemia Neuritis left eye Fibromyalgia Insomnia TIA/mini stroke Diabetes Thyroid nodule Osteopenia Hiatal hernia The degenerative disc disease Irritable bowel syndrome Vitamin D deficiency H. pylori ear pain Depression Anxiety Lichen sclerosus Social history: Nicotine: Negative Alcohol: Negative Drugs: Negative Behcet's disease - Constitutional Constitutional: Reports sweats - EENT Eyes: bilateral blurred vision Ears: bilateral: decreased hearing, tinnitus Ears, nose, mouth and throat: Reports headache - Breasts Breasts: bilateral: as per HPI - Cardiovascular Cardiovascular: Denies chest pain, Denies shortness of breath - Respiratory Respiratory: Denies cough, Denies 7 - Gastrointestinal Gastrointestinal: Reports as per HPI - Genitourinary (Female) Genitourinary: Reports as per HPI - Menstruation Menstruation: Reports post hysterectomy - Musculoskeletal Comment: Fibromyalgia - Integumentary Integumentary: Reports as per HPI - Neurological Comment: CVA in the past multiple Sclerosis - Psychiatric Psychiatric: Reports anxiety, Reports depression - Endocrine Endocrine: Reports fatigue - Hematologic/Lymphatic Comment: none Hematologic/Lymphatic: Reports as per HPI - Allergic/Immunologic Allergic/Immunologic: Reports as per HPI Past Medical History Past Medical History: Diabetes Mellitus, Fibromyalgia, GERD/Reflux, Musculoskeletal Disorder, Osteoarthritis (OA), Skin Disorder, Sleep Apnea/CPAP/BIPAP Additional Past Medical History / Comment(s): degenerative arthritis with chronic bilateral hip pain, history of bursitis, irritable bowel syndrome, hiatal hernia history of H. pylori that was treated with antibiotics, umbilical hernia, MS diagnosed (2014)., Sleep Apnea resolved with wt loss , osteopenia, Acne, Occasional Sores under abdominal apron., GERD resolved ., Incontinence controlled with RX., States Lisinopril used to protect kidneys., MS causes muscle spasms, migraines, fatigue, vertigo., uses cane ., states Constipation. History of Any Multi-Drug Resistant Organisms: None Reported Past Surgical History: Bariatric Surgery, Cholecystectomy, Hysterectomy, Joint Replacement, Orthopedic Surgery, Uterine Ablation Additional Past Surgical History / Comment(s): BILAT CARPAL TUNNEL RELEASE. 11-18-15 [facility]. BILAT KNEE ARTHROSCOPY. RT ROTATOR CUFF REPAIR. COLONOSCOPY, EGD, L knee replacment Past Anesthesia/Blood Transfusion Reactions: Motion Sickness, Postoperative Nausea & Vomiting (PONV) Additional Past Anesthesia/Blood Transfusion Reaction / Comment(s): CLAUSTERPHOBIA Past Psychological History: Anxiety, Depression, PTSD Past Alcohol Use History: None Reported Past Drug Use History: None Reported - Past Family History Mother Family Medical History: Diabetes Mellitus, Hyperlipidemia, Hypertension Additional Family Medical History / Comment(s): OBESITY, DEPRESSION. GRANDFATHER HAD DVT Father Family Medical History: Coronary Artery Disease (CAD), Diabetes Mellitus, Hyperlipidemia, Hypertension, Myocardial Infarction (ID), Renal Disease Additional Family Medical History / Comment(s): GOUT, CARDIAC STENTS Medications and Allergies Home Medications Medication Instructions Recorded Confirmed Type Citalopram Hydrobromide [CeleXA] 40 mg PO DAILY 04/15/14 05/29/19 History Biotin 10,000 mcg PO DAILY 04/29/16 05/29/19 History Baclofen 10 mg PO TID 06/28/17 05/29/19 History Amitriptyline HCl [Elavil] 50 mg PO DAILY 04/14/18 05/29/19 History Meclizine [Antivert] 12.5 mg PO TID 04/14/18 05/29/19 History Ondansetron HCl [Zofran] 8 mg PO BID PRN 04/14/18 05/23/19 History traMADol HCL [Ultram] 50 mg PO TID 04/14/18 05/29/19 History Ascorbic Acid [Vitamin C] 500 mg PO BID 02/02/19 05/29/19 History Oxybutynin Chloride [Ditropan XL] 10 mg PO DAILY 02/02/19 05/29/19 History Simvastatin [Zocor] 10 mg PO DAILY 02/02/19 05/29/19 History sitaGLIPtin [Januvia] 100 mg PO DAILY 02/02/19 05/29/19 History lisinopriL [Zestril] 2.5 mg PO HS 02/06/19 05/29/19 History Ammonium Lactate Cream [Lac-Hydrin 1 applic TOPICAL BID PRN 04/03/19 05/23/19 History 12% Cream] Clindamycin Gel [Clindamycin 1 applic TOPICAL BID 04/03/19 05/23/19 History Phosphate 1% Gel] Zinc Oxide [Desitin] 1 cream TOPICAL DAILY PRN 04/03/19 05/23/19 History Artificial Tears-Hypromellose 1 drops BOTH EYES QID 05/23/19 05/23/19 History [Artificial Tear Drops] Bariatric Calcium 500 mg PO DAILY 05/23/19 History Bariatric Multivitamin 1 tab PO BID 05/23/19 History Ferrous Sulfate [Feosol] 325 mg PO DAILY 05/23/19 05/23/19 History Linaclotide [Linzess] 290 mcg PO DAILY 05/23/19 05/29/19 History Ocrevus Infusion For Ms 1 dose IV DIRECTED 05/23/19 History Magnesium Oxide [Magox 400] 400 mg PO DAILY #60 tablet 05/31/19 Rx Hydrocortisone [Anusol-Hc] 1 applic RECTAL TID #1 gm 01/04/20 Rx Lidocaine [Lidocaine 5% Rectal 1 applic RECTAL QID PRN #15 gm 01/04/20 Rx Cream] Allergies Allergy/AdvReac Type Severity Reaction Status Date / Time pregabalin [From Lyrica] Allergy Severe Anaphylaxis Verified 06/20/20 14:10 Sulfa (Sulfonamide Allergy Severe Anaphylaxis, Verified 06/20/20 14:10 Antibiotics) Rash/Hives Surgical - Exam BMI 97.2 - General obese - Eyes normal ocular movement - ENT normal nares - Neck trachea midline - Respiratory normal expansion, normal respiratory effort, clear to auscultation - Cardiovascular Rhythm: regular Heart Sounds: normal: S1, S2 - Abdomen Abdomen: soft, bowel sounds - Integumentary normal turgor - Neurologic no disoriented, no combative - Musculoskeletal uses a garcia - Psychiatric oriented to time, oriented to person, oriented to place, speech is normal, memory intact breast exam: BRA: 48G inspection: grade 3 bilateral palpation: right breast: Multi-positional exam fibrocystic changes, nipple discharge which is green in nature as well as some more white-colored discharge No dominant masses or nodules of concern Right axilla: No adenopathy of concern Left breast: Multi-positional exam fibrocystic changes, no dominant masses or nodules of concern nipple discharge green in nature Left axilla: No adenopathy of concern Patient had guaiac studies done of both nipple discharge sites both were nonbloody guaiac negative Results Mammogram and ultrasound results reviewed Assessment and Plan Assessment: Impression: Multiple sclerosis Migraines Osteoarthritis Fatigue Incontinence Iron deficiency anemia Neuritis left eye Fibromyalgia Insomnia TIA/mini stroke Diabetes Thyroid nodule Osteopenia Hiatal hernia The degenerative disc disease Irritable bowel syndrome Vitamin D deficiency H. pylori ear pain Depression Anxiety Lichen sclerosus Fibrocystic breast disease bilaterally Bilateral nipple discharge. The fibrocystic breast disease Mammogram and ultrasound. no specific lesions of concern Plan: 1. lifestyle modification with decreased caffeine intake 2. Reassurance that the nipple discharge does not appear to be related to c ancer 3. Patient concerned about breast reduction, rigid be happy to refer her to a plastic surgeon Cc: Dr. Díaz encounter 35 minutes, > 50% of time spent in planning and counselling
== END ==
LOC: WWCWWP 14:03
PROVIDERS: ATTEND Surgery
DX: Z53.9 Procedure and treatment not carried out, unspecified reason (principal)

== ENCOUNTER → 2020-09-05 | Outpatient (CLI) | payer MEDICARE, OTHER ==
[2020-09-05 20:41] LABS: Anti-Smith Ab Interp NEGATIVE (NEGATIVE); DNA Double-Stranded NEGATIVE (NEGATIVE); JO-1 IgG Antibody <0.2 AI; Scleroderma SC-70 Ab <0.2 AI
[2020-09-05 20:42] LABS: Cyclic Citrull Pep IgG Unit <0.5 U/mL; Cyclic Citrullinated Pep IgG NEGATIVE (NEGATIVE)
[2020-09-06 14:08] LABS: Histone Antibody 0.3 UNITS (<1.0)
== END | disposition home or self-care (01) ==
LOC: LABWHC1 14:25
PROVIDERS: ATTEND Psychiatry & Neurology Pain Medicine
DX: Z51.81 Encounter for therapeutic drug level monitoring (principal); M25.50 Pain in unspecified joint
CPT/HCPCS: 36415; 83516; 86038; 86200; 86225; 86235

== ENCOUNTER → 2020-09-27 | Outpatient (CLI) | payer MEDICARE, OTHER ==
[2020-09-27 09:00] VITALS: BP 142/92; PULSE 99; RESP 18; TEMP 99.2
--- NOTE | 2020-09-27 09:45 | P.PN ---
Subjective Progress Note Date: 09/27/20 Principal diagnosis: breast pain Jes is a 45 year old white female seen in consultation for Dr. Díaz on 06-20-20 with a complaint of bilateral nipple discharge. She had had bilateral nipple discharge for several years, this was felt to be fibrocystic in nature. Recently the right side became slight in nature. She has had a recent bilateral mammogram performed on 2619 which was benign however right breast ultrasound was recommended this was done negative BIRADS 1 and routine mammogram of both breasts 1 year recommended. She complained both breasts were nodular however nothing had changed . She was not complaining of any pain in her breast. She had recent right hip replacement on July 23, 2020. After this she had back pain and was on steroids and now is complaining of increased bilateral breast pain. The pain became increased swelling and painful on . She has not done anything other than the steroids recently. She had a hysterectomy but her ovaries were not removed. She does states that she has a history of ovarian cyst and had pain in her RLQ just before the breast pain started. This was on Sep 18. The pain in her RLQ has improved. She thinks she may be periomenopausal. The pain is a 7 or 8. She has bilateral nipple discharge, this is not changed. She states that her breast feel lumpy everywhere. Caffeine: Diet Coke 20 ounces a day/ decreased the amount Nicotine: Negative Theophylline: Occasional Hormones: Negative/ patient's suspect she may be perimenopausal Family history: paternal grandmother: colon cancer paternal aunts (2): breast cancer Hormonal history: Menarche: 9 , breast fed: none, age at first : 20 Hysterectomy at 37 for bleeding Hormones: Negative Surgical history: Left knee replacement Small bowel obstruction Bariatric surgery Right rotator cuff surgery Hysterectomy Uterine ablation/tubal ligation Right knee meniscus tear Right carpal tunnel Left carpal tunnel Cholecystectomy A lateral release left knee Schedule July 23 for right hip replacement; right hip replacement on July 23 Medical history Multiple sclerosis Migraines Osteoarthritis Fatigue Incontinence Iron deficiency anemia Neuritis left eye Fibromyalgia Insomnia TIA/mini stroke Diabetes Thyroid nodule Osteopenia Hiatal hernia The degenerative disc disease Irritable bowel syndrome Vitamin D deficiency H. pylori ear pain Depression Anxiety Lichen sclerosus back pain being tested for rheumatoid arthritis Social history: Nicotine: Negative Alcohol: Negative Drugs: Negative Behcet's disease Objective - Vital Signs Vital signs: Vital Signs Temp 99.2 F 09/27/20 08:55 Pulse 99 09/27/20 08:55 Resp 18 09/27/20 08:55 BP 142/92 09/27/20 08:55 Pulse Ox 97 09/27/20 08:55 Intake & Output 09/26/20 09/27/20 09/27/20 18:59 06:59 18:59 Weight 110.223 kg - Exam BMI 43.7 - Constitutional General appearance: Present: morbidly obese - EENT Eyes: Present: EOMI ENT: Present: hearing grossly normal - Neck Neck: Present: normal ROM - Respiratory Respiratory: bilateral: CTA - Cardiovascular Rhythm: regular Heart sounds: normal: S1, S2 - Gastrointestinal General gastrointestinal: Present: normal bowel sounds, soft - Integumentary Integumentary: Present: normal turgor - Musculoskeletal Musculoskeletal Comment(s): uses a cane recent hip replacement - Psychiatric Psychiatric: Present: A&O x's 3, appropriate affect, intact judgment & insight - Additional findings Additional findings: breast exam: BRA: 48DDD inspection: bilateral grade 3 ptosis palpation: right breast: Multiple positional exam fibrocystic changes, no dominant discrete masses or nodules of concern right axilla: No adenopathy of concern Left breast: Multiple positional exam fibrocystic changes, no dominant masses or nodules of concern Left axilla: No adenopathy of concern Assessment and Plan Assessment: Impression: Multiple sclerosis Migraines Osteoarthritis Fatigue Incontinence Iron deficiency anemia Neuritis left eye Fibromyalgia Insomnia TIA/mini stroke Diabetes Thyroid nodule Osteopenia Hiatal hernia The degenerative disc disease Irritable bowel syndrome Vitamin D deficiency H. pylori ear pain Depression Anxiety Lichen sclerosus back pain being tested for rheumatoid arthritis Fibrocystic breast changes Mastodynia most likely related to hormonal changes back pain related to macromastia Plan: 1. consider breast reduction 2. life style modification (stop caffiene) 3. breast US 4. Estrogen, FSH, LH levels 5. Patient has already been scheduled for bilateral breast MRI she will proceed with this in follow-up after this is completed Cc: Dr. Díaz encounter 25 minutes, > 50% of time in planning and counselling
[2020-09-27 14:44] LABS: Luteinizing Hormone 12.4 mIU/mL
[2020-09-27 14:45] LABS: Estradiol 115.1 pg/mL; Follicle Stimulating Hormone 5.5 mIU/mL
== END | disposition home or self-care (01) ==
LOC: WWCWWP 08:43
PROVIDERS: ATTEND Surgery
DX: N64.3 Galactorrhea not associated with childbirth (principal)
CPT/HCPCS: 82670; 83001; 83002

== ENCOUNTER → 2020-10-02 | Outpatient (CLI) | payer MEDICARE, OTHER ==
--- NOTE | 2020-10-02 09:39 | USB ---
Reason for exam: clinical finding. History: Family history of breast cancer in paternal aunt at age 50 and breast cancer in paternal aunt. Took hormonal contraceptives for 10 years. Indicated problem(s): pain in both breasts. Physical Findings: Nurse Summary: soft, movable, nodular, bilateral pain throughout (nurse dw). US Breast BILAT Right complete breast ultrasound includes all four quadrants, the retroareolar region and axilla. Finding demonstrates no cystic or solid lesion seen. Left complete breast ultrasound includes all four quadrants, the retroareolar region and axilla. Finding demonstrates no cystic or solid lesion seen. These results were verbally communicated with the patient and result sheet given to the patient on 10/02/20. ASSESSMENT: Negative, BI-RAD 1 RECOMMENDATION: Routine screening mammogram of both breasts in 3 months. Back on schedule for December 2020. Manage on a clinical basis with regard to benign white nipple discharge and bilateral breast pain.
== END | disposition home or self-care (01) ==
LOC: RADUSWWP 07:38
PROVIDERS: ATTEND Surgery
DX: N64.4 Mastodynia (principal)

== ENCOUNTER → 2020-10-08 | Outpatient (CLI) | payer MEDICARE, OTHER ==
[2020-10-08 15:08] LABS: Basophils # (A) 0.1 k/uL (0-0.2); Basophils % (A) 1 %; Eosinophils # (A) 0.3 k/uL (0-0.7); Eosinophils % (A) 5 %; HCT 38.6 % (34.0-46.0); HGB 12.4 gm/dL (11.4-16.0); Lymphocytes # (A) 2.6 k/uL (1.0-4.8); Lymphocytes % (A) 39 %; MCH 26.5 pg (25.0-35.0); MCHC 32.1 g/dL (31.0-37.0); MCV 82.5 fL (80.0-100.0); Mean Platelet Volume 6.9; Monocytes # (A) 0.5 k/uL (0-1.0); Monocytes % (A) 7 %; Neutrophils # (A) 3.1 k/uL (1.3-7.7); Neutrophils % (A) 47 %; Platelet Count 388 k/uL (150-450); RBC 4.68 m/uL (3.80-5.40); RDW 13.7 % (11.5-15.5); Reticulocyte % 1.8 % (0.5-2.0); WBC 6.8 k/uL (3.8-10.6)
[2020-10-08 18:28] LABS: % Iron Saturation 14.65 (12.00-45.00); African American GFR (CKD) 88.2 (60.0-200.0); Albumin 4.2 g/dL (3.80-4.90); Albumin/Globulin Ratio 1.91 (1.60-3.17); Anion Gap 10.5 mmol/L (4.00-12.00); Calcium 9.4 mg/dL (8.7-10.3); Carbon Dioxide 26.5 mmol/L (21.6-31.8); Globulin 2.2 g/dL (1.6-3.3); Non-African American GFR(CKD) 76.1 (60.0-200.0); Potassium 4.3 mmol/L (3.5-5.5); Total Bilirubin 0.6 mg/dL (0.2-1.2); Total Protein 6.4 g/dL (6.2-8.2)
[2020-10-08 18:36] LABS: T4, Free (Free Thyroxine) 0.9 ng/dL (0.80-1.80)
[2020-10-08 18:38] LABS: Ferritin 20.3 ng/mL (10.0-291.0)
[2020-10-08 18:53] LABS: Folate, Serum 23.5 ng/mL
[2020-10-08 21:23] LABS: Hemoglobin A1C 7.3 % (4.0-6.0)
[2020-10-10 17:11] LABS: HIV-1 RNA Not detected (Not detected); HIV-1 RNA, Quant <40 Copies/mL (<40)
[2020-10-11 09:25] LABS: Vit B1(Thiamine) 90 ug/L (38-122)
[2020-10-13 08:09] LABS: Nicotinamide 20 ng/mL; Nicotinic Acid None Detected; Nicotinuric Acid None Detected
== END | disposition home or self-care (01) ==
LOC: LABWHC1 14:11
PROVIDERS: ATTEND Psychiatry & Neurology Pain Medicine
DX: G35 Multiple sclerosis (principal); D64.9 Anemia, unspecified; Z51.81 Encounter for therapeutic drug level monitoring
CPT/HCPCS: 36415; 80053; 82306; 82607; 82668; 82728; 82746; 83036; 83540; 83550; 84207; 84425; 84439; 84443; 84466; 84481; 84591; 85025; 85045; 87536

== ENCOUNTER → 2020-10-31 | Outpatient (CLI) | payer MEDICARE, OTHER | END | disposition home or self-care (01) | LOC: RADMRIMAIN 14:00 | PROVIDERS: ATTEND Physician Assistant | DX: Z53.9 Procedure and treatment not carried out, unspecified reason (principal) ==

== ENCOUNTER → 2020-11-29 | Outpatient (CLI) | payer MEDICARE, OTHER ==
[2020-11-29 12:58] VITALS: BP 138/88; PULSE 86; RESP 18; TEMP 98.1
--- NOTE | 2020-11-29 13:48 | P.PN ---
Subjective Progress Note Date: 11/29/20 Principal diagnosis: nipple discharge bilateral breast pain Jes is a 45 year old white female seen in consultation for Dr. Díaz on 06-20-20 with a complaint of bilateral nipple discharge. She had had bilateral nipple discharge for several years, this was felt to be fibrocystic in nature. She had a bilateral mammogram performed on 2619 which was benign however right breast ultrasound was recommended this was done negative BIRADS 1 and routine mammogram of both breasts 1 year recommended. She complained both breasts were nodular however nothing had changed . She was not complaining of any pain in her breast. She had recent right hip replacement on July 23, 2020. After this she had back pain and was on steroids and now is complaining of increased bilateral breast pain. The pain became increased swelling and painful on . She has not done anything other than the steroids recently. She had a hysterectomy but her ovaries were not removed. She does states that she has a history of ovarian cyst and had pain in her RLQ just before the breast pain started. This was on Sep 18. The pain in her RLQ has improved. She thinks she may be periomenopausal. She had bilateral breast ultrasound on September 1120 this was benign BIRADS 1. The nipple discharge is turbid in nature. It is more on the right than on the left. It occurs daily. It is found in her bra. She has bilateral nipple discharge, this is not changed. She states that her breast feel lumpy everywhere. The patient was noted some subcutaneous nodules in her abdomen and thighs in the posterior aspect of her arms. A bilateral breast MRI was done on 11-08-20, this was suboptimal but no evidence of malignancy was noted. Caffeine: Diet Coke 20 ounces a day/ decreased the amount Nicotine: Negative Theophylline: Occasional Hormones: Negative/ patient's suspect she may be perimenopausal Family history: paternal grandmother: colon cancer paternal aunts (2): breast cancer Hormonal history: Menarche: 9 , breast fed: none, age at first : 20 Hysterectomy at 37 for bleeding Hormones: Negative Surgical history: Left knee replacement Small bowel obstruction Bariatric surgery Right rotator cuff surgery Hysterectomy Uterine ablation/tubal ligation Right knee meniscus tear Right carpal tunnel Left carpal tunnel Cholecystectomy A lateral release left knee Schedule July 23 for right hip replacement; right hip replacement on July 23 Medical history Multiple sclerosis Migraines Osteoarthritis Fatigue Incontinence Iron deficiency anemia Neuritis left eye Fibromyalgia Insomnia TIA/mini stroke Diabetes Thyroid nodule Osteopenia Hiatal hernia The degenerative disc disease Irritable bowel syndrome Vitamin D deficiency H. pylori ear pain Depression Anxiety Lichen sclerosus back pain being tested for rheumatoid arthritis Social history: Nicotine: Negative Alcohol: Negative Drugs: Negative Behcet's disease Objective - Vital Signs Vital signs: Vital Signs Temp 98.1 F 11/29/20 12:56 Pulse 86 11/29/20 12:56 Resp 18 11/29/20 12:56 BP 138/88 11/29/20 12:56 Pulse Ox 97 11/29/20 12:56 Intake & Output 11/28/20 11/29/20 11/29/20 18:59 06:59 18:59 Weight 106.141 kg - Exam BMI 42.1 - Constitutional General appearance: Present: obese - EENT Eyes: Present: EOMI ENT: Present: hearing grossly normal - Respiratory Respiratory: bilateral: CTA - Cardiovascular Rhythm: regular Heart sounds: normal: S1, S2 - Gastrointestinal General gastrointestinal: Present: normal bowel sounds, soft - Integumentary Integumentary Comment(s): The patient has some subcutaneous nodularity over the abdomen on the left as well as a questionable subcutaneous cyst on her left thigh the area of subcutaneous nodularity. His be consistent with subcutaneous nodularity also felt in the left breast Integumentary: Present: normal turgor - Musculoskeletal Musculoskeletal Comment(s): difficult with ambulation - Psychiatric Psychiatric: Present: A&O x's 3, appropriate affect - Additional findings Additional findings: breast exam: BRA: 46G or 48DDD inspection: grade 3 ptosis bilateral Palpation: Right breast: Multi-positional exam fibrocystic changes, dark nipple discharge from 2 ducts, no dominant masses or nodules of concern Right axilla: No adenopathy of concern Left breast: Multi-positional exam fibrocystic changes, prominent subcutaneous tissue probable lipomas no dominant masses or nodules of concern nipple discharge on today's exam from multiple ducts Left axilla: No adenopathy of concern guiac studies were performed of both sides both were guaiac negative Assessment and Plan Assessment: Impression: 1. Bilateral nipple discharge. Brusly to be fibrocystic in nature 2. Recent breast MRI did not show any evidence of invasive malignancy 3. Subcutaneous nodularity on the left side of the abdomen and noted in the left breast believed to be lipomatous changes 4. Subcutaneous nodularity left thigh this may be cystic in nature and follow with Dr. Díaz regarding this Plan: 1. Bilateral mammogram in December physician exam at that time 2. Encouraged her to continue to abstain from the caffeine and the patient will try some primrose oil 3. FNA of the area of subcutaneous nodularity in the left breast on her next visit cc: Dr. Díaz encounter 15 minutes, > 50% of time in planning and counselling
== END | disposition home or self-care (01) ==
LOC: WWCWWP 12:36
PROVIDERS: ATTEND Surgery
DX: Z53.9 Procedure and treatment not carried out, unspecified reason (principal)

== ENCOUNTER → 2020-12-11 | Outpatient (CLI) | payer MEDICARE, OTHER | END | disposition home or self-care (01) | LOC: LABWHC1 13:44 | PROVIDERS: ATTEND Psychiatry & Neurology Pain Medicine | DX: E55.9 Vitamin D deficiency, unspecified (principal) | CPT/HCPCS: 36415; 82306 ==

== ENCOUNTER 2020-12-20 08:10 | Inpatient (IN) | payer MEDICARE, OTHER ==
[2020-12-20] MEDS ORDERED: SODIUM CHLORIDE 0.9% 1,000 ML IV STA (08:20)
[2020-12-20] MEDS ORDERED: ONDANSETRON 4 MG/2 ML VIAL IVP STA (08:20)
[2020-12-20 08:27] LABS: Glucose,Whole Blood 146 mg/dL (75-99)
--- NOTE | 2020-12-20 08:36 | ED ---
General Adult HPI - General Chief complaint: Dizziness Stated complaint: Vomiting & Dizziness Time Seen by Provider: 12/20/20 08:16 Source: patient Mode of arrival: ambulatory Limitations: no limitations - History of Present Illness Initial comments: Dictation was produced using [employer] dictation software. please excuse any grammatical, word or spelling errors. This patient was cared for during a federal and state declared state of emergency secondary to Covid 19 Chief Complaint: 45-year-old male past medical history of multiple sclerosis, diabetes, fibromyalgia presents with dizziness and vomiting History of Present Illness: 45-year-old female she presents today with 2-3 days of dizziness and vomiting. Patient has history of vertigo she takes Antivert 3 times a day. Since the last 2-3 days she's been having worsening dizziness and vomiting. She states that she feels like the room is spinning. She states that her symptoms are worse with movement. She denies any intra-abdominal pain. She is currently having chronic abdominal pain from what she was told were lipomas. No diarrhea. She has been exposed to family members who tested positive for Covid 19. The ROS documented in this emergency department record has been reviewed and confirmed by me. Those systems with pertinent positive or negative responses have been documented in the HPI. All other systems are other negative and/or noncontributory. PHYSICAL EXAM: General Impression: Alert and oriented x3, not in acute distress HEENT: Normocephalic atraumatic, extra-ocular movements intact, pupils equal and reactive to light bilaterally, mucous membranes moist. Cardiovascular: Heart regular rate and rhythm Chest: Able to complete full sentences, no retractions, no tachypnea Abdomen: abdomen soft, non-tender, non-distended, no organomegaly Musculoskeletal: Pulses present and equal in all extremities, no peripheral edema Motor: no focal deficits noted Neurological: CN II-XII grossly intact, no focal motor or sensory deficits noted, fatigable nystagmus with gaze to the left with fast phase to the left Skin: Intact with no visualized rashes Psych: Normal affect and mood ED course: 45-year-old female with chief complaint of dizziness vomiting and vertiginous symptoms. Vital signs upon arrival are within acceptable limits. Laboratory evaluation obtained. CBC, coag panel, metabolic panel is unremarkable. Coronal virus is negative.Patient reevaluated at bedside and states that she still vertiginous even after the Zofran and intravenous fluids. Patient given Valium and still has been persistent symptoms. Her symptoms don't seem very severe however she does not feel comfortable being discharged. Her symptoms do seem to be positional as she does report significant improvement while staying still and her symptoms are triggered with movement of the head. Patient will be admitted to [facility] hospitalist group, on-call for Dr. Burnett. Neurology will be consulted for intractable vertigo. EKG interpretation: Ventricular rate 76, normal sinus rhythm,. Interval 120, QRS 80, QTC 479. No NV prolongation, no QTC prolongation, no ST or T-wave changes noted. EKG compared to 07/25/2015 showing no changes. Overall, this EKG is unremarkable - Related Data Home Medications Medication Instructions Recorded Confirmed Citalopram Hydrobromide [CeleXA] 40 mg PO QAM 04/15/14 12/20/20 Biotin 10,000 mcg PO QAM 04/29/16 12/20/20 Baclofen 10 mg PO QID 06/28/17 12/20/20 Amitriptyline HCl [Elavil] 50 mg PO BID 04/14/18 12/20/20 Meclizine [Antivert] 12.5 mg PO TID PRN 04/14/18 12/20/20 ondansetron HCL [Zofran] 8 mg PO BID PRN 04/14/18 12/20/20 traMADol HCL [Ultram] 50 mg PO TID 04/14/18 12/20/20 Ascorbic Acid [Vitamin C] 500 mg PO BID 02/02/19 12/20/20 Oxybutynin Chloride [Ditropan XL] 10 mg PO QAM 02/02/19 12/20/20 Simvastatin [Zocor] 10 mg PO QAM 02/02/19 12/20/20 sitaGLIPtin [Januvia] 100 mg PO DAILY 02/02/19 12/20/20 lisinopriL [Zestril] 2.5 mg PO HS 02/06/19 12/20/20 Ammonium Lactate Cream [Lac-Hydrin 1 applic TOPICAL BID PRN 04/03/19 12/20/20 12% Cream] Clindamycin Gel [Clindamycin 1 applic TOPICAL BID 04/03/19 12/20/20 Phosphate 1% Gel] Artificial Tears-Hypromellose 1 drops BOTH EYES QID 05/23/19 12/20/20 [Artificial Tear Drops] Magnesium Oxide [Magox 400] 400 mg PO QAM 06/20/20 12/20/20 Dextroamphetamine/Amphetamine 20 mg PO BID 06/27/20 12/20/20 [Adderall] Erenumab-Aooe [Aimovig 140 mg SQ QMONTH 06/27/20 12/20/20 Autoinjector] Ergocalciferol [Vitamin D2] 50,000 unit PO MO 06/27/20 12/20/20 Halobetasol Propionate [Ultravate] 1 applic TOPICAL BID 06/27/20 12/20/20 Olopatadine HCl 1 applic BOTH EYES TID PRN 06/27/20 12/20/20 Ubrogepant [Ubrelvy] 50 mg PO DAILY PRN 06/27/20 12/20/20 polyethylene glycoL 3350 [Miralax] 17 gm PO QAM PRN 06/27/20 12/20/20 Aspirin EC [Ecotrin Low Dose] 81 mg PO DAILY 12/20/20 12/20/20 Dapagliflozin Propanediol [Farxiga] 10 mg PO DAILY 12/20/20 12/20/20 Oxyle Mouth Wash 15 ml PO BID 12/20/20 12/20/20 Allergies Allergy/AdvReac Type Severity Reaction Status Date / Time pregabalin [From Lyrica] Allergy Severe Anaphylaxis Verified 12/20/20 10:07 Sulfa (Sulfonamide Allergy Severe Anaphylaxis, Verified 12/20/20 10:07 Antibiotics) Rash/Hives Review of Systems ROS Statement: Those systems with pertinent positive or pertinent negative responses have been documented in the HPI. ROS Other: All systems not noted in ROS Statement are negative. Past Medical History Past Medical History: Diabetes Mellitus, Fibromyalgia, GERD/Reflux, Musculoskeletal Disorder, Osteoarthritis (OA), Skin Disorder, Sleep Apnea /CPAP/BIPAP Additional Past Medical History / Comment(s): degenerative arthritis with chronic bilateral hip pain, history of bursitis, irritable bowel syndrome, hiatal hernia history of H. pylori that was treated with antibiotics, umbilical hernia, MS diagnosed (2014)., Sleep Apnea resolved with wt loss , osteopenia, Acne, Occasional Sores under abdominal apron., GERD resolved ., Incontinence controlled with RX., States Lisinopril used to protect kidneys., MS causes musc le spasms, migraines, fatigue, vertigo., uses cane ., states Constipation. History of Any Multi-Drug Resistant Organisms: None Reported Past Surgical History: Bariatric Surgery, Cholecystectomy, Hysterectomy, Joint Replacement, Orthopedic Surgery, Uterine Ablation Additional Past Surgical History / Comment(s): BILAT CARPAL TUNNEL RELEASE. 11-18-15 LAURIE EN Y. BILAT KNEE ARTHROSCOPY. RT ROTATOR CUFF REPAIR. COLONOSCOPY, EGD, L knee replacment, rt hip repla Past Anesthesia/Blood Transfusion Reactions: Motion Sickness, Postoperative Nausea & Vomiting (PONV) Additional Past Anesthesia/Blood Transfusion Reaction / Comment(s): CLAUSTERPHOBIA Past Psychological History: Anxiety, Depression, PTSD Smoking Status: Never smoker Past Alcohol Use History: None Reported Past Drug Use History: None Reported - Past Family History Mother Family Medical History: Diabetes Mellitus, Hyperlipidemia, Hypertension Additional Family Medical History / Comment(s): OBESITY, DEPRESSION. GRANDFATHER HAD DVT Father Family Medical History: Coronary Artery Disease (CAD), Diabetes Mellitus, Hyperlipidemia, Hypertension, Myocardial Infarction ([place]), Renal Disease Additional Family Medical History / Comment(s): GOUT, CARDIAC STENTS General Exam Limitations: no limitations Course Vital Signs 12/20/20 12/20/20 12/20/20 08:16 08:33 09:00 Temperature 98.5 F Pulse Rate 84 74 Respiratory 18 18 14 Rate Blood Pressure 134/92 162/93 162/93 O2 Sat by Pulse 99 99 90 L Oximetry 12/20/20 12/20/20 09:30 10:00 Temperature Pulse Rate 73 78 Respiratory 16 16 Rate Blood Pressure 143/88 139/95 O2 Sat by Pulse 94 L 96 Oximetry Medical Decision Making - Lab Data Result diagrams: 12/20/20 08:45 12/20/20 08:45 Lab Results 12/20/20 12/20/20 12/20/20 Range/Units 08:25 08:45 08:45 WBC 10.5 (3.8-10.6) k/uL RBC 5.11 (3.80-5.40) m/uL Hgb 13.5 (11.4-16.0) gm/dL Hct 40.2 (34.0-46.0) % MCV 78.6 L (80.0-100.0) fL MCH 26.3 (25.0-35.0) pg MCHC 33.5 (31.0-37.0) g/dL RDW 14.0 (11.5-15.5) % Plt Count 431 (150-450) k/uL MPV 7.2 Neutrophils % 67 % Lymphocytes % 22 % Monocytes % 6 % Eosinophils % 3 % Basophils % 1 % Neutrophils # 7.1 (1.3-7.7) k/uL Lymphocytes # 2.3 (1.0-4.8) k/uL Monocytes # 0.6 (0-1.0) k/uL Eosinophils # 0.3 (0-0.7) k/uL Basophils # 0.1 (0-0.2) k/uL PT 9.8 (9.0-12.0) sec INR 0.9 (<1.2) APTT 22.1 (22.0-30.0) sec Sodium (137-145) mmol/L Potassium (3.5-5.1) mmol/L Chloride (98-107) mmol/L Carbon Dioxide (22-30) mmol/L Anion Gap mmol/L BUN (7-17) mg/dL Creatinine (0.52-1.04) mg/dL Est GFR (CKD-EPI)AfAm (>60 ml/min/1.73 sqM) Est GFR (CKD-EPI)NonAf (>60 ml/min/1.73 sqM) Glucose (74-99) mg/dL POC Glucose (mg/dL) 146 H (75-99) mg/dL POC Glu Business Process Coordinator ID Enzo, Raven Calcium (8.4-10.2) mg/dL Magnesium (1.6-2.3) mg/dL Total Bilirubin (0.2-1.3) mg/dL AST (14-36) U/L ALT (4-34) U/L Alkaline Phosphatase (38-126) U/L Total Protein (6.3-8.2) g/dL Albumin (3.5-5.0) g/dL Lipase (23-300) U/L Coronavirus (PCR) (Not Detectd) 12/20/20 12/20/20 Range/Units 08:45 08:45 WBC (3.8-10.6) k/uL RBC (3.80-5.40) m/uL Hgb (11.4-16.0) gm/dL Hct (34.0-46.0) % MCV (80.0-100.0) fL MCH (25.0-35.0) pg MCHC (31.0-37.0) g/dL RDW (11.5-15.5) % Plt Count (150-450) k/uL MPV Neutrophils % % Lymphocytes % % Monocytes % % Eosinophils % % Basophils % % Neutrophils # (1.3-7.7) k/uL Lymphocytes # (1.0-4.8) k/uL Monocytes # (0-1.0) k/uL Eosinophils # (0-0.7) k/uL Basophils # (0-0.2) k/uL PT (9.0-12.0) sec INR (<1.2) APTT (22.0-30.0) sec Sodium 137 (137-145) mmol/L Potassium 4.0 (3.5-5.1) mmol/L Chloride 100 (98-107) mmol/L Carbon Dioxide 26 (22-30) mmol/L Anion Gap 11 mmol/L BUN 18 H (7-17) mg/dL Creatinine 0.70 (0.52-1.04) mg/dL Est GFR (CKD-EPI)AfAm >90 (>60 ml/min/1.73 sqM) Est GFR (CKD-EPI)NonAf >90 (>60 ml/min/1.73 sqM) Glucose 151 H (74-99) mg/dL POC Glucose (mg/dL) (75-99) mg/dL POC Glu Business Process Coordinator ID Calcium 9.2 (8.4-10.2) mg/dL Magnesium 1.9 (1.6-2.3) mg/dL Total Bilirubin 1.2 (0.2-1.3) mg/dL AST 23 (14-36) U/L ALT 21 (4-34) U/L Alkaline Phosphatase 138 H (38-126) U/L Total Protein 6.9 (6.3-8.2) g/dL Albumin 4.0 (3.5-5.0) g/dL Lipase 40 (23-300) U/L Coronavirus (PCR) Not Detected (Not Detectd) Disposition Clinical Impression: Vertigo Disposition: ADMITTED IP TO THIS HOSP Condition: Fair Referrals: Aneudy Díaz DO [Primary Care Provider] - 1-2 days Decision Time: 10:44
[2020-12-20 08:56] LABS: Basophils # (A) 0.1 k/uL (0-0.2); Basophils % (A) 1 %; Eosinophils # (A) 0.3 k/uL (0-0.7); Eosinophils % (A) 3 %; HCT 40.2 % (34.0-46.0); HGB 13.5 gm/dL (11.4-16.0); Lymphocytes # (A) 2.3 k/uL (1.0-4.8); Lymphocytes % (A) 22 %; MCH 26.3 pg (25.0-35.0); MCHC 33.5 g/dL (31.0-37.0); MCV 78.6 fL (80.0-100.0); Mean Platelet Volume 7.2; Monocytes # (A) 0.6 k/uL (0-1.0); Monocytes % (A) 6 %; Neutrophils # (A) 7.1 k/uL (1.3-7.7); Neutrophils % (A) 67 %; Platelet Count 431 k/uL (150-450); RBC 5.11 m/uL (3.80-5.40); WBC 10.5 k/uL (3.8-10.6)
[2020-12-20 09:06] LABS: ALT 21 U/L (4-34); AST 23 U/L (14-36); African American GFR (CKD) >90 (>60 ml/min/1.73 sqM); Alkaline Phosphatase 138 U/L (38-126); Anion Gap 11 mmol/L; Blood Urea Nitrogen 18 mg/dL (7-17); Calcium 9.2 mg/dL (8.4-10.2); Carbon Dioxide 26 mmol/L (22-30); Chloride 100 mmol/L (98-107); Glucose 151 mg/dL (74-99); Lipase 40 U/L (23-300); Magnesium 1.9 mg/dL (1.6-2.3); Non-African American GFR(CKD) >90 (>60 ml/min/1.73 sqM); Sodium 137 mmol/L (137-145); Total Bilirubin 1.2 mg/dL (0.2-1.3); Total Protein 6.9 g/dL (6.3-8.2)
[2020-12-20 09:12] LABS: INR 0.9 (<1.2); Partial Thromboplastin Time 22.1 sec (22.0-30.0); Prothrombin Time 9.8 sec (9.0-12.0)
[2020-12-20] MEDS ORDERED: diazePAM 2 MG TAB PO STA (10:06)
[2020-12-20] MEDS ORDERED: NALOXONE 0.4 MG/ML 1 ML VIAL IV PRN (10:44)
[2020-12-20] MEDS ORDERED: ONDANSETRON 4 MG/2 ML VIAL IVP PRN (10:44)
[2020-12-20] MEDS: SODIUM CHLORIDE 0.9% 1,000 ML IV SCH (11:02)
[2020-12-20] MEDS ORDERED: MECLIZINE 25 MG TAB PO PRN (12:00)
[2020-12-20] MEDS: PANTOPRAZOLE 40 MG/10 ML VIAL IVP SCH ×2 (12:35→21:19)
[2020-12-20] MEDS ORDERED: Ubrogepant [Ubrelvy] 50 MG Tablet PO PRN (13:18)
[2020-12-20] MEDS ORDERED: polyethylene glycoL 3350 17 GM POWD.PACK PO PRN (13:18)
[2020-12-20] MEDS ORDERED: ONDANSETRON 4 MG TAB PO PRN (13:18)
[2020-12-20] MEDS ORDERED: AMMONIUM LACTATE 12% CREAM 140 GM TUBE TOPICAL PRN (13:18)
--- NOTE | 2020-12-20 14:39 | HP ---
HISTORY AND PHYSICAL DATE OF SERVICE: 12/20/2020 CHIEF COMPLAINT: Dizziness and vomiting and intractable dizziness. HISTORY OF PRESENT ILLNESS: This 45-year-old woman with a past medical history of multiple medical problems including diabetes, fibromyalgia, history of liver disease, history of GERD, DJD, sleep apnea, history of multiple sclerosis, history of bariatric surgery, cholecystectomy being followed by Dr. Casillas as well as Dr. Díaz in the outpatient setting is complaining of intractable dizziness for the last several months on and off. Yesterday, the patient had significant vertigo which is easily provoked by position of the head and associated vomiting. The patient came to [facility] and admitted for further evaluation and treatment. Because of lack of improvement, the patient was admitted. There is no history of any fever, rigors. No history of headache, loss of consciousness, or seizures. PAST MEDICAL HISTORY: Diabetes mellitus, fibromyalgia, GERD, liver disease, history of multiple sclerosis, bariatric surgery, cholecystectomy. MEDICATIONS: Medications prior to admission include home medications are: 1. Ultram. 2. Januvia. 3. MiraLAX. 4. Zofran. 5. Zestril. 6. Zocor. 7. Ditropan XL. 8. Olopatadine. 9. Antivert. 10.Magnesium oxide. 11.Ultravate. 12.Vitamin D2. 13.Adderall. 14.Farxiga. 15.Clindamycin. 16.Celexa. 17.Aspirin. Doses are reviewed. ALLERGIES: LYRICA and SULFA. FAMILY HISTORY: Diabetes, hypertension, hyperlipidemia. SOCIAL HISTORY: No history of smoking. No history of alcohol. REVIEW OF SYSTEMS: ENT: Mentioned earlier. CARDIOVASCULAR SYSTEM: No angina. RESPIRATORY SYSTEM: No cough or hemoptysis. GI: As mentioned earlier. GI: As mentioned earlier. NERVOUS SYSTEM: As mentioned earlier. ALLERGY/IMMUNOLOGY: No history of asthma or hayfever. MUSCULOSKELETAL: As mentioned earlier. HEMATOLOGY/ONCOLOGY: No history of anemia. ENDOCRINE: As mentioned earlier. CONSTITUTIONAL: As mentioned earlier. DERMATOLOGY: Negative. RHEUMATOLOGY: Negative. PSYCHIATRY: As mentioned earlier. PHYSICAL EXAMINATION: Patient is alert and oriented x3. The pulse is 77, blood pressure 131/86, respiration 13, temperature 98.5, pulse ox 95% on room air. HEENT: Conjunctivae normal. Oral mucosa moist. NECK: No JVD. No carotid bruit. No lymph node enlargement. CARDIOVASCULAR: S1, S2 muffled. No S3, S4. RESPIRATORY: Breath sounds diminished at the bases. No rhonchi. No crackles. ABDOMEN: Soft, obese, nontender. No mass palpable. LEGS: No edema, no swelling. NERVOUS SYSTEM: Higher function as mentioned earlier. No nystagmus. No diplopia. Otherwise, no visual difficulties. Eye movements full in all directions. Otherwise, moves all 4 limbs. No finger-nose incoordination. Gait not tested. The patient is having significant postural dizziness. SKIN: No ulcer, rash or bleeding. JOINTS: No active deforming arthropathy. LYMPHATICS: No lymphadenopathy of the neck, axillae or groin. LABS: WBC 10.5, MCV 78.6. Otherwise, BMP showed BUN is 18. Glucose 146. Alkaline phosphatase 138. ASSESSMENT: 1. Intractable vertigo, possibly benign POSITIONAL vertigo. 2. Rule out multiple sclerosis exacerbation. 3. History of multiple sclerosis. 4. Diabetes mellitus type 2. 5. Fibromyalgia. 6. Gastroesophageal reflux disease. 7. Chronic liver disease. 8. History of degenerative joint disease. 9. History of sleep apnea. 10.History of muscle spasms. 11.History of peripheral neuropathy. 12.History of irritable bowel syndrome. 13.History of constipation. 14.History of bariatric surgery. 15.History of cholecystectomy. 16.History of claustrophobia. 17.History of anxiety, depression, posttraumatic stress disorder. 18.Obesity with body mass index of 43. RECOMMENDATION AND DISCUSSION: This 45-year-old woman presented with multiple complex medical issues, we will monitor the patient closely, continue the current medications, continue symptomatic treatment. Will initiate to home medications and symptomatic treatment with Antivert. Otherwise neurology consultation. Basic labs. IV hydration slowly. Prognosis guarded because of multiple complex medical issues. Further recommendations to follow. A copy of dictation forwarded to Dr. Aneudy Díaz, who is the primary physician. MMYAZANL / KAVONN: [id number] / MTDAlexander
[2020-12-20] MEDS: traMADol 50 MG TAB PO SCH ×2 (16:58→21:19)
--- NOTE | 2020-12-20 17:31 | P.CNNES ---
History of Present Illness Consult date: 12/20/20 Requesting physician: Blair Ma Reason for Consult: Vertigo History of Present Illness: Patient is a 45-year-old female, who carries a diagnosis of multiple sclerosis, follows up with Dr. Tyson office, currently on Ocrevus infusions, came to the hospital today at 8:10 AM with 2-3 days history of dizziness and vomiting. Patient has history of vertigo and takes Antivert 3 times a day. This mainly happens if she gets too hot, she tries to cool her body down, and the symptoms goes away. She never has symptoms like this. Patient states that last night at 7 PM she was sweeping the floor, slightly bending down, went she started having vertigo, everything started spinning. She lay down but then she started vomiting. She woke up at 3 AM and the symptoms were still present. She could not even drink water because of nausea vomiting. She stayed in the bed until 6:30 but then she texted her son to bring her to the hospital. Patient complains of blurred vision, some double vision. Denies any focal numbness tingling or weakness. Vital signs shows blood pressure 134/92, pulse rate 84 temperature 98.5 EKG shows normal sinus rhythm. Blood test shows normal CBC, PT/PTT, CMP. Marcum virus negative. Patient had an MRI of the brain performed previously 10/03/2016 for "white matter changes, rule out MS", which revealed mild nonspecific white matter changes may be productive of multiple sclerosis. Other etiologies are not excluded. There is interval increase in size and number of lesions noted. No enhancing lesions are present. Hemoglobin A1c 7.3 on 10/08/2020. Patient has diabetes at least since 2015. Patient's blood tests from 10/08/2020 shows normal B12 778, B6 13, B1 90, vitamin E 69, folate 23.5, normal TSH. Patient also has spinal fluid performed on 11/09/2016, which revealed 0 WBCs, 0 RBC, normal proteins 34 (12-60), negative myelin basic protein, normal IgG synthesis rate, IgG index and negative oligoclonal bands. Patient had negative Lyme titer, HIV negative, also had extensive rheumatologic workup performed 09/05/2020 with negative CCP, MARIA TERESA, Estrellita 1 antibodies, Sjogren's antibodies, March antibody, COMPLIANCE OFFICER antibody, SCL 70 scleroderma antibody, dsDNA, Histone antibodies and anti-smooth muscle antibodies. Copper selenium and zinc levels normal. Patient denies tobacco alcohol or marijuana use. She has diabetes for about 4 years. Denies hypertension. Patient states she was diagnosed with multiple sclerosis in October 2014. She has been receiving Ocrevus for the last 2 years. Prior to that she was on Betaseron, and Aubagio, which did not help. Review of Systems Patient complains of blurred vision, double vision, nausea vomiting. Denies abdominal pain and denies diarrhea. Patient completes of numbness of the feet from diabetes. She also has carpal tunnel release in 2003. Denies any chest pain shortness of breath wheezing or cough. Denies any problem incontinence. No dysuria. No fever or chills. Patient had right hip, left knee surgeries. Patient has arthritis. Past Medical History Past Medical History: Diabetes Mellitus, Fibromyalgia, GERD/Reflux, Liver Disease, Musculoskeletal Disorder, Osteoarthritis (OA), Skin Disorder, Sleep Apnea/CPAP/BIPAP Additional Past Medical History / Comment(s): Multiple sclerosis/muscle spasms, vertigo, chronic abdominal pain/told d/t lipomas, NIDDM type II, neuropathy bilateral feet, hiatal hernia, past H pylori, umbilical hernia, IBS, constipation, degenerative arthritis, migraines, osteopenia, MACHO but no longer needs Cpap since weight loss, urinary incontinence, lisinopril is for kidney protection, adult acne, fatigue. History of Any Multi-Drug Resistant Organisms: None Reported Past Surgical History: Bariatric Surgery, Cholecystectomy, Hysterectomy, Joint Replacement, Orthopedic Surgery, Uterine Ablation Additional Past Surgical History / Comment(s): Total R hip, bilateral knee arthroscopies, total L knee, janice en Y, EGD, colonoscopy, laparoscopic lysis of abdominal adhesions. Past Anesthesia/Blood Transfusion Reactions: Motion Sickness, Postoperative Nausea & Vomiting (PONV) Additional Past Anesthesia/Blood Transfusion Reaction / Comment(s): CLAUSTERPHOBIA Smoking Status: Never smoker - Past Family History Mother Family Medical History: Diabetes Mellitus, Hyperlipidemia, Hypertension Additional Family Medical History / Comment(s): OBESITY, DEPRESSION. GRANDFATHER HAD DVT Father Family Medical History: Coronary Artery Disease (CAD), Diabetes Mellitus, Hyperlipidemia, Hypertension, Myocardial Infarction ([place]), Renal Disease Additional Family Medical History / Comment(s): GOUT, CARDIAC STENTS Medications and Allergies Home Medications Medication Instructions Recorded Confirmed Type Citalopram Hydrobromide [CeleXA] 40 mg PO QAM 04/15/14 12/20/20 History Biotin 10,000 mcg PO QAM 04/29/16 12/20/20 History Baclofen 10 mg PO QID 06/28/17 12/20/20 History Amitriptyline HCl [Elavil] 50 mg PO BID 04/14/18 12/20/20 History Meclizine [Antivert] 12.5 mg PO TID PRN 04/14/18 12/20/20 History ondansetron HCL [Zofran] 8 mg PO BID PRN 04/14/18 12/20/20 History traMADol HCL [Ultram] 50 mg PO TID 04/14/18 12/20/20 History Ascorbic Acid [Vitamin C] 500 mg PO BID 02/02/19 12/20/20 History Oxybutynin Chloride [Ditropan XL] 10 mg PO QAM 02/02/19 12/20/20 History Simvastatin [Zocor] 10 mg PO QAM 02/02/19 12/20/20 History sitaGLIPtin [Januvia] 100 mg PO DAILY 02/02/19 12/20/20 History lisinopriL [Zestril] 2.5 mg PO HS 02/06/19 12/20/20 History Ammonium Lactate Cream [Lac-Hydrin 1 applic TOPICAL BID PRN 04/03/19 12/20/20 Hi story 12% Cream] Clindamycin Gel [Clindamycin 1 applic TOPICAL BID 04/03/19 12/20/20 History Phosphate 1% Gel] Artificial Tears-Hypromellose 1 drops BOTH EYES QID 05/23/19 12/20/20 History [Artificial Tear Drops] Magnesium Oxide [Magox 400] 400 mg PO QAM 06/20/20 12/20/20 History Dextroamphetamine/Amphetamine 20 mg PO BID 06/27/20 12/20/20 History [Adderall] Erenumab-Aooe [Aimovig 140 mg SQ QMONTH 06/27/20 12/20/20 History Autoinjector] Ergocalciferol [Vitamin D2] 50,000 unit PO MO 06/27/20 12/20/20 History Halobetasol Propionate [Ultravate] 1 applic TOPICAL BID 06/27/20 12/20/20 History Olopatadine HCl 1 applic BOTH EYES TID PRN 06/27/20 12/20/20 History Ubrogepant [Ubrelvy] 50 mg PO DAILY PRN 06/27/20 12/20/20 History polyethylene glycoL 3350 [Miralax] 17 gm PO QAM PRN 06/27/20 12/20/20 History Aspirin EC [Ecotrin Low Dose] 81 mg PO DAILY 12/20/20 12/20/20 History Dapagliflozin Propanediol [Farxiga] 10 mg PO DAILY 12/20/20 12/20/20 History Oxyle Mouth Wash 15 ml PO BID 12/20/20 12/20/20 History Allergies Allergy/AdvReac Type Severity Reaction Status Date / Time pregabalin [From Lyrica] Allergy Severe Anaphylaxis Verified 12/20/20 10:07 Sulfa (Sulfonamide Allergy Severe Anaphylaxis, Verified 12/20/20 10:07 Antibiotics) Rash/Hives Physical Examination - Vital Signs Vital Signs: Vital Signs Temp Pulse Pulse Pulse Pulse Resp BP 12/20/20 15:02 77 94 74 12/20/20 11:29 98.5 F 77 13 131/86 12/20/20 11:00 77 13 131/86 12/20/20 10:30 75 15 126/93 12/20/20 10:00 78 16 139/95 12/20/20 09:30 73 16 143/88 12/20/20 09:00 74 14 162/93 12/20/20 08:33 18 162/93 12/20/20 08:16 98.5 F 84 18 134/92 BP BP BP Pulse Ox 12/20/20 15:02 134/85 128/86 121/78 12/20/20 11:29 95 12/20/20 11:00 95 12/20/20 10:30 96 12/20/20 10:00 96 12/20/20 09:30 94 L 12/20/20 09:00 90 L 12/20/20 08:33 99 12/20/20 08:16 99 Intake and Output 12/20/20 12/20/20 12/20/20 06:59 14:59 22:59 Intake Total 180 Balance 180 Intake: Oral 180 Other: Weight 106.594 kg On examination patient is a middle aged female in no acute distress. Patient is alert and awake fully oriented. Speech and language functions are normal. Attention, concentration and fund of knowledge is adequate. Patient is slightly photosensitive, and shades her eye from bright light. Light makes her nauseous. On cranial exam showed pupils are round and reactive to light, visual luis are full on confrontation with no neglect. Extraocular muscles are intact. No definitive nystagmus noted. Face is symmetric, tongue protrudes to the midline. Palatal elevation and sensation normal, hearing and shoulder shrug normal. On muscle strength testing there is no pronator drift and the strength is normal in arms and legs distally and proximally reflexes are 1+ and plantars are downgoing. Sensory touch is equal with no neglect. No ataxia for [id number] or [id number] testing, tone and bulk of muscles normal. Gait deferred. Results - Laboratory Findings CBC and BMP: 12/20/20 08:45 12/20/20 08:45 Abnormal Lab Findings: Abnormal Labs 12/20/20 12/20/20 12/20/20 08:25 08:45 08:45 MCV 78.6 L BUN 18 H Glucose 151 H POC Glucose (mg/dL) 146 H Alkaline Phosphatase 138 H Assessment and Plan Assessment: * Multiple sclerosis. * New onset vertigo and nausea vomiting, double vision, possible MS exacerbation. Rule out viral labyrinthitis. CVA less likely. * Diabetes * Obesity Plan: * MRI of the brain with and without contrast to evaluate for possible MS exacerbation, rule out CVA or other structural abnormalities. * Solu-Medrol 1 g IVPB daily for 3-5 days. * Pepcid for gastric ulcer prophylaxis. * Neurology will follow.
[2020-12-20] MEDS: BACLOFEN 10 MG TAB PO SCH ×2 (17:59→21:19)
[2020-12-20] MEDS: ARTIFICIAL TEARS-HYPROMELLOSE DROPS 15 ML BTL BOTH EYES SCH ×2 (17:59→21:23)
[2020-12-20] MEDS: methylPREDNISolone SOD SUCC 1,000 MG in SODIUM CHLORIDE 0.9% 250 ML IVPB SCH (19:27)
[2020-12-20 19:55] LABS: Appearance,Urine Clear (Clear); Bilirubin,Urine Negative (Negative); Blood,Urine Negative (Negative); Color,Urine Light Yellow; Glucose,Urine (UA) 4+ (Negative); Ketones,Urine Negative (Negative); Leukocyte Esterase,Urine Negative (Negative); Nitrite,Urine Negative (Negative); PH, Urine 5.5 (5.0-8.0); Protein,Urine Negative (Negative); Specific Gravity,Urine 1.011 (1.001-1.035); Urobilinogen,Urine <2.0 mg/dL (<2.0)
[2020-12-20] MEDS ORDERED: [UNRECOGNIZED DRUG - OTHER] PO SCH (21:00)
[2020-12-20] MEDS ORDERED: KETOTIFEN 0.025% OPHTH DROPS 5 ML BTL BOTH EYES PRN (21:00)
[2020-12-20] MEDS: ASCORBIC ACID 500 MG TAB PO SCH (21:19)
[2020-12-20] MEDS: AMITRIPTYLINE HCL 50 MG TAB PO SCH (21:20)
[2020-12-20] MEDS: HEPARIN SODIUM,PORCINE 5,000 UNIT/ML 1 ML VIAL SQ SCH (21:21)
[2020-12-20] MEDS: CLINDAMYCIN TOPICAL SCH (21:22)
[2020-12-20] MEDS: CLOBETASOL PROP 0.05% OINT 15GM TOPICAL SCH (21:23)
[2020-12-20 21:40] LABS: Glucose,Whole Blood 153 mg/dL (75-99)
[2020-12-21 06:24] LABS: Basophils % (A) 0 %; Eosinophils % (A) 0 %; HCT 43.1 % (34.0-46.0); HGB 13.9 gm/dL (11.4-16.0); Hypochromasia Slight; Lymphocytes # (A) 1.1 k/uL (1.0-4.8); Lymphocytes % (A) 9 %; MCHC 32.2 g/dL (31.0-37.0); Monocytes # (A) 0.1 k/uL (0-1.0); Monocytes % (A) 1 %; Neutrophils % (A) 90 %; Platelet Count 464 k/uL (150-450); RBC 5.32 m/uL (3.80-5.40); RDW 13.8 % (11.5-15.5); WBC 13.3 k/uL (3.8-10.6)
[2020-12-21] MEDS: ATORVASTATIN 10 MG TAB PO SCH (08:53)
[2020-12-21] MEDS: traMADol 50 MG TAB PO SCH ×2 (08:53→17:10)
[2020-12-21] MEDS: ASCORBIC ACID 500 MG TAB PO SCH (08:53)
[2020-12-21] MEDS: ASPIRIN 81 MG PO SCH (08:53)
[2020-12-21] MEDS: AMITRIPTYLINE HCL 50 MG TAB PO SCH (08:55)
[2020-12-21] MEDS: BACLOFEN 10 MG TAB PO SCH ×3 (08:55→18:15)
[2020-12-21] MEDS: MAGNESIUM OXIDE 400 MG TAB PO SCH (08:55)
[2020-12-21] MEDS: HEPARIN SODIUM,PORCINE 5,000 UNIT/ML 1 ML VIAL SQ SCH (08:55)
[2020-12-21] MEDS: CITALOPRAM HYDROBROMIDE 20 MG TAB PO SCH (08:55)
[2020-12-21] MEDS: PANTOPRAZOLE 40 MG/10 ML VIAL IVP SCH (08:56)
[2020-12-21] MEDS: LINAGLIPTIN 5 MG TABLET PO SCH (08:57)
[2020-12-21] MEDS: PATIENT'S OWN (Dextroamphetamine/Amphetamine [Adderall] 20 MG Tablet) PO SCH ×2 (08:58→14:46)
[2020-12-21] MEDS: ARTIFICIAL TEARS-HYPROMELLOSE DROPS 15 ML BTL BOTH EYES SCH ×3 (08:58→18:17)
[2020-12-21] MEDS: OXYBUTYNIN 10 MG TAB.ER.24 PO SCH (08:58)
[2020-12-21] MEDS: DAPAGLIFLOZIN PROPANEDIOL 10 MG PO SCH (08:59)
[2020-12-21] MEDS ORDERED: NON FORMULARY DRUG (Biotin [Biotin] 5 MG Capsule) PO SCH (09:00)
[2020-12-21] MEDS: CLINDAMYCIN TOPICAL SCH (09:11)
[2020-12-21] MEDS: CLOBETASOL PROP 0.05% OINT 15GM TOPICAL SCH (09:21)
[2020-12-21] MEDS: methylPREDNISolone SOD SUCC 1,000 MG in SODIUM CHLORIDE 0.9% 250 ML IVPB SCH (09:21)
[2020-12-21 09:35] LABS: African American GFR (CKD) 88.2 (60.0-200.0); Anion Gap 11.9 mmol/L (4.00-12.00); BUN/Creat Ratio 18.89 Ratio (12.00-20.00); Calcium 9.5 mg/dL (8.7-10.3); Carbon Dioxide 25.1 mmol/L (21.6-31.8); Non-African American GFR(CKD) 76.1 (60.0-200.0); Potassium 4.6 mmol/L (3.5-5.5)
[2020-12-21 12:44] LABS: Glucose,Whole Blood 233 mg/dL (75-99)
[2020-12-21] MEDS: INSULIN ASPART (NovoLOG) 100 UNIT/ML VIAL SQ SCH ×2 (12:52→18:15)
[2020-12-21 14:02] VITALS: BMI 43.0
--- NOTE | 2020-12-21 16:45 | P.PN ---
Subjective Progress Note Date: 12/21/20 Patient was seen for a follow-up via telemedicine. Patient states her nausea is better. But she is still feeling dizziness, spinning sensation. She has a headache rates 6/10. It is behind the eyes. No new focal symptoms. Objective - Vital Signs Vital signs: Vital Signs Temp 98.2 F 12/21/20 14:00 Pulse 100 12/21/20 14:00 Resp 16 12/21/20 14:00 BP 99/58 12/21/20 14:00 Pulse Ox 96 12/21/20 14:00 Intake & Output 12/20/20 12/21/20 12/21/20 18:59 06:59 18:59 Intake Total 1210 720 500 Balance 1210 720 500 Weight 106.594 kg 106.594 kg Intake: Intake, IV Titration 490 Amount Sodium Chloride 0.9% 1, 490 000 ml @ 70 mls/hr IV . [id number] [facility] Rx#:[id number] Oral 720 720 500 Other: Voiding Method Toilet Toilet # Voids 1 1 - Exam on examination patient is laying comfortably in the bed. Patient is a flat af fect. Speech and language functions are normal. Pupils are round and reacting, visual luis are full. Extraocular muscles are intact with no nystagmus. Face is symmetric. Muscle strength appears normal. No ataxia. - Labs CBC & Chem 7: 12/22/20 07:17 12/22/20 07:17 Labs: Abnormal Lab Results - Last 24 Hours (Table) 12/20/20 12/20/20 12/21/20 Range/Units 19:41 21:37 05:34 WBC 13.3 H (3.8-10.6) k/uL Plt Count 464 H (150-450) k/uL Neutrophils # 12.0 H (1.3-7.7) k/uL Glucose (70-110) mg/dL POC Glucose (mg/dL) 153 H (75-99) mg/dL Urine Glucose (UA) 4+ H (Negative) 12/21/20 12/21/20 Range/Units 05:34 12:41 WBC (3.8-10.6) k/uL Plt Count (150-450) k/uL Neutrophils # (1.3-7.7) k/uL Glucose 207 H (70-110) mg/dL POC Glucose (mg/dL) 233 H (75-99) mg/dL Urine Glucose (UA) (Negative) Assessment and Plan Assessment: * Multiple sclerosis. * New onset vertigo and nausea vomiting, double vision, possible MS exacerbation. Rule out viral labyrinthitis. CVA less likely. * Diabetes * Obesity Plan: * MRI of the brain with and without contrast has been completed, results pending. * Solu-Medrol 1 g IVPB daily for 3-5 days. * Pepcid for gastric ulcer prophylaxis. * follow closely blood sugars as steroids can make blood sugars worse. * UA negative. Marcum virus negative. * B12 normal 778, folate 23.5 and TFTs on 10/08/2020. * Dr. Lockhart will continue neurology care on Wednesday. * Neurology will follow. Addendum MRI of the brain with and without contrast revealed stable pre-and post-brain MRI.
[2020-12-21 17:14] LABS: Glucose,Whole Blood 281 mg/dL (75-99)
--- NOTE | 2020-12-21 17:23 | MR ---
EXAMINATION TYPE: MR brain wo/w con DATE OF EXAM: 12/21/2020 COMPARISON: MR brain 10/03/2016 HISTORY: MS, headache, dizziness, light sensitivity. TECHNIQUE: Multiplanar, multisequence images of the brain and brainstem is performed without and with IV contras t, utilizing 10 mL intravenous Gadavist . FINDINGS: Diffusion weighted images demonstrate no evidence of a recent infarct or other diffusion ab normality. There is no extra-axial fluid collection or significant change in white matter signal abn ormality, some scattered hyperintensities on inversion recovery T2-weighted sequences are again noted within the deep white matter, similar size and number to prior exam. The ventricular system and cis ternal spaces are normal in size and appearance. The brain volume is age appropriate. Midline structures demonstrate normal morphology. The craniocervical junction appears within normal limits. Post contrast images demonstrate no abnormal enhancement. The dural venous sinuses appear pa tent. The visualized sinuses are remarkable for some minimal inflammatory change left maxillary sinus and ethmoid air cells, and the globes are intact. IMPRESSION: Stable pre and post brain MRI
[2020-12-21] MEDS: SODIUM CHLORIDE 0.9% 1,000 ML IV SCH (18:38)
--- NOTE | 2020-12-21 19:43 | PN ---
PROGRESS NOTE DATE OF SERVICE: 12/21/2020 This 45-year-old woman who was admitted with intractable vertigo and significant vomiting was thought to have multiple sclerosis exacerbation by Neurology. Patient started on high-dose IV steroids and MRI, which was personally reviewed by me, showed stable abnormalities. Symptomatically, the patient is slightly better. PHYSICAL EXAMINATION: Alert and oriented. Pulse is 100, blood pressure 90/58, respiration 16, temperature 98.2, pulse ox 98% on room air. HEENT: Conjunctivae normal. Oral mucosa moist. NECK: No jugular venous distention. No lymph node enlargement. CARDIOVASCULAR: S1, S2, muffled. No S3, no S4, RESPIRATORY: Diminished breath sounds at the bases. Bilateral scattered rhonchi and crackles. ABDOMEN: Soft, nontender. LEGS: No edema, no swelling. NERVOUS SYSTEM: Mild diffuse weakness. LABS: At this time shows WBC 13.3 and platelets are 464. Accu-Cheks noted, 281. ASSESSMENT: 1. Intractable vertigo and vomiting, possibly multiple sclerosis acute exacerbation. 2. Elevated blood sugars and diabetes type 2 uncontrolled with hyperglycemia. 3. History of multiple sclerosis. 4. Fibromyalgia. 5. Gastroesophageal reflux disease. 6. Chronic liver disease. 7. History of degenerative joint disease. 8. History of sleep apnea. 9. History of muscle spasm. 10.History of peripheral neuropathy. 11.History of irritable bowel syndrome. 12.History of constipation. 13.History of bariatric surgery. 14.History of cholecystectomy. 15.History of claustrophobia. 16.History of anxiety, depression, posttraumatic stress disorder. 17.Obesity with body mass index 43. RECOMMENDATION AND DISCUSSION: Recommend to continue current management, continue symptomatic treatment and continue with IV steroids. The blood sugars are increasing at this time. I would recommend initiation of oral small dose of Lantus for better sugar control and further recommendations to follow. MMODL / IJN: [id number] /
[2020-12-21 23:00] LABS: Glucose,Whole Blood 238 mg/dL (75-99)
[2020-12-22] MEDS: CLINDAMYCIN TOPICAL SCH ×3 (01:09→22:16)
[2020-12-22] MEDS: ARTIFICIAL TEARS-HYPROMELLOSE DROPS 15 ML BTL BOTH EYES SCH ×5 (01:10→20:53)
[2020-12-22] MEDS: HEPARIN SODIUM,PORCINE 5,000 UNIT/ML 1 ML VIAL SQ SCH ×3 (01:11→20:53)
[2020-12-22] MEDS: traMADol 50 MG TAB PO SCH ×4 (01:11→20:53)
[2020-12-22] MEDS: PANTOPRAZOLE 40 MG/10 ML VIAL IVP SCH ×3 (01:11→20:55)
[2020-12-22] MEDS: INSULIN DETEMIR (LEVEMIR) 100 UNIT/ML SYR SQ SCH ×2 (01:12→20:55)
[2020-12-22] MEDS: AMITRIPTYLINE HCL 50 MG TAB PO SCH ×3 (01:12→20:54)
[2020-12-22] MEDS: ASCORBIC ACID 500 MG TAB PO SCH ×3 (01:13→20:53)
[2020-12-22] MEDS: CLOBETASOL PROP 0.05% OINT 15GM TOPICAL SCH ×3 (01:30→20:54)
[2020-12-22] MEDS: BACLOFEN 10 MG TAB PO SCH ×5 (01:32→21:05)
[2020-12-22] MEDS: INSULIN ASPART (NovoLOG) 100 UNIT/ML VIAL SQ SCH ×5 (01:32→20:54)
[2020-12-22 07:33] LABS: Glucose,Whole Blood 175 mg/dL (75-99)
[2020-12-22 07:49] LABS: Basophils % (A) 0 %; Eosinophils % (A) 0 %; HCT 39.2 % (34.0-46.0); Lymphocytes # (A) 1.7 k/uL (1.0-4.8); Lymphocytes % (A) 11 %; MCH 26.8 pg (25.0-35.0); MCHC 33.2 g/dL (31.0-37.0); MCV 80.5 fL (80.0-100.0); Mean Platelet Volume 7.2; Monocytes # (A) 0.7 k/uL (0-1.0); Monocytes % (A) 5 %; Neutrophils # (A) 13.1 k/uL (1.3-7.7); Neutrophils % (A) 83 %; Platelet Count 456 k/uL (150-450); RBC 4.86 m/uL (3.80-5.40); RDW 14.4 % (11.5-15.5); WBC 15.7 k/uL (3.8-10.6)
[2020-12-22] MEDS: PATIENT'S OWN (Dextroamphetamine/Amphetamine [Adderall] 20 MG Tablet) PO SCH ×2 (09:13→14:11)
[2020-12-22] MEDS: DAPAGLIFLOZIN PROPANEDIOL 10 MG PO SCH (09:20)
[2020-12-22] MEDS: OXYBUTYNIN 10 MG TAB.ER.24 PO SCH (09:24)
[2020-12-22] MEDS: ATORVASTATIN 10 MG TAB PO SCH (09:24)
[2020-12-22] MEDS: MAGNESIUM OXIDE 400 MG TAB PO SCH (09:24)
[2020-12-22] MEDS: ASPIRIN 81 MG PO SCH (09:24)
[2020-12-22] MEDS: CITALOPRAM HYDROBROMIDE 20 MG TAB PO SCH (09:24)
[2020-12-22] MEDS: LINAGLIPTIN 5 MG TABLET PO SCH (09:25)
[2020-12-22] MEDS: methylPREDNISolone SOD SUCC 1,000 MG in SODIUM CHLORIDE 0.9% 250 ML IVPB SCH (09:25)
[2020-12-22 12:05] LABS: African American GFR (CKD) 88.2 (60.0-200.0); Anion Gap 9.8 mmol/L (4.00-12.00); BUN/Creat Ratio 21.11 Ratio (12.00-20.00); Calcium 9.5 mg/dL (8.7-10.3); Carbon Dioxide 28.2 mmol/L (21.6-31.8); Non-African American GFR(CKD) 76.1 (60.0-200.0); Potassium 4.4 mmol/L (3.5-5.5)
[2020-12-22 12:22] LABS: Glucose,Whole Blood 258 mg/dL (75-99)
[2020-12-22] MEDS: SODIUM CHLORIDE 0.9% 1,000 ML IV SCH (13:43)
[2020-12-22 15:15] LABS: Hemoglobin A1C 7.1 % (4.0-6.0)
--- NOTE | 2020-12-22 15:45 | PN ---
PROGRESS NOTE DATE OF SERVICE: 12/22/2020 This 45-year-old woman was admitted with intractable nausea, vomiting, has possible multiple sclerosis acute exacerbation. MRI showed stable findings. The patient is on high-dose IV steroids as recommended by Neurology. Patient symptomatically improving significantly after steroids. No chest pain. No palpitations. No fever. Blood sugars are slightly elevated. PHYSICAL EXAMINATION: Alert and oriented x3. Pulse 69. Blood pressure 126/82, respiration 18, temperature 97.8, pulse ox 98% on room air. HEENT: Conjunctivae normal. NECK: No JVD. CARDIOVASCULAR: S1, S2. RESPIRATION: Breath sounds diminished in the bases. No rhonchi. No crackles. ABDOMEN: Soft, nontender. NERVOUS SYSTEM: Mild diffuse weakness. LABS: WBC 15.7, otherwise glucose 175/58. ASSESSMENT: 1. Intractable vertigo, vomiting with possible multiple sclerosis, acute exacerbation. 2. Elevated blood glucose, diabetes mellitus type 2, uncontrolled with hyperglycemia. 3. History of multiple sclerosis. 4. Fibromyalgia. 5. Gastroesophageal reflux disease. 6. Chronic liver disease. 7. Degenerative joint disease. 8. History of sleep apnea. 9. History of muscle spasms. 10.History of peripheral neuropathy. 11.History of irritable bowel syndrome. 12.History of constipation. 13.History of bariatric surgery. 14.History of cholecystectomy. 15.History of claustrophobia. 16.History of anxiety, depression, posttraumatic stress disorder. 17.Obesity with body mass index 43. RECOMMENDATIONS AND DISCUSSION: Recommend to continue current medications, management and symptomatic treatment. Continue with high-dose IV steroids as recommended by Neurology. Monitor blood glucose closely. The prognosis is guarded. Further recommendations to follow. Patient is also on Levemir 20 units subcu q.h.s. Monitor blood sugar closely as a temporary measure. MMODL / IJN: [id number] /
[2020-12-22 17:21] LABS: Glucose,Whole Blood 388 mg/dL (75-99)
[2020-12-22 20:15] LABS: Glucose,Whole Blood 330 mg/dL (75-99)
[2020-12-23 06:21] LABS: Basophils % (A) 0 %; Eosinophils % (A) 0 %; HCT 38.9 % (34.0-46.0); HGB 12.4 gm/dL (11.4-16.0); Hypochromasia Slight; Lymphocytes # (A) 2.4 k/uL (1.0-4.8); Lymphocytes % (A) 15 %; MCH 25.9 pg (25.0-35.0); MCHC 31.8 g/dL (31.0-37.0); MCV 81.3 fL (80.0-100.0); Mean Platelet Volume 7.2; Monocytes # (A) 0.9 k/uL (0-1.0); Monocytes % (A) 5 %; Neutrophils # (A) 12.7 k/uL (1.3-7.7); Neutrophils % (A) 79 %; Platelet Count 414 k/uL (150-450); RBC 4.78 m/uL (3.80-5.40); RDW 14.3 % (11.5-15.5); WBC 16.2 k/uL (3.8-10.6)
[2020-12-23 06:41] LABS: Glucose,Whole Blood 171 mg/dL (75-99)
[2020-12-23] MEDS: PATIENT'S OWN (Dextroamphetamine/Amphetamine [Adderall] 20 MG Tablet) PO SCH ×2 (08:23→13:44)
[2020-12-23] MEDS: ARTIFICIAL TEARS-HYPROMELLOSE DROPS 15 ML BTL BOTH EYES SCH ×4 (08:24→21:32)
[2020-12-23] MEDS: INSULIN ASPART (NovoLOG) 100 UNIT/ML VIAL SQ SCH ×4 (08:25→21:28)
[2020-12-23] MEDS: HEPARIN SODIUM,PORCINE 5,000 UNIT/ML 1 ML VIAL SQ SCH ×2 (08:26→21:28)
[2020-12-23] MEDS: AMITRIPTYLINE HCL 50 MG TAB PO SCH ×2 (08:28→21:29)
[2020-12-23] MEDS: ATORVASTATIN 10 MG TAB PO SCH (08:28)
[2020-12-23] MEDS: MAGNESIUM OXIDE 400 MG TAB PO SCH (08:28)
[2020-12-23] MEDS: traMADol 50 MG TAB PO SCH ×3 (08:28→21:30)
[2020-12-23] MEDS: ASCORBIC ACID 500 MG TAB PO SCH ×2 (08:28→21:28)
[2020-12-23] MEDS: PANTOPRAZOLE 40 MG/10 ML VIAL IVP SCH ×2 (08:28→21:31)
[2020-12-23] MEDS: ASPIRIN 81 MG PO SCH (08:28)
[2020-12-23] MEDS: BACLOFEN 10 MG TAB PO SCH ×4 (08:28→21:30)
[2020-12-23] MEDS: OXYBUTYNIN 10 MG TAB.ER.24 PO SCH (08:29)
[2020-12-23] MEDS: LINAGLIPTIN 5 MG TABLET PO SCH (08:30)
[2020-12-23] MEDS: DAPAGLIFLOZIN PROPANEDIOL 10 MG PO SCH (08:31)
[2020-12-23 08:44] LABS: African American GFR (CKD) 101.8 (60.0-200.0); Anion Gap 9.4 mmol/L (4.00-12.00); BUN/Creat Ratio 33.75 Ratio (12.00-20.00); Calcium 9.1 mg/dL (8.7-10.3); Carbon Dioxide 25.6 mmol/L (21.6-31.8); Non-African American GFR(CKD) 87.8 (60.0-200.0); Potassium 4.2 mmol/L (3.5-5.5)
[2020-12-23] MEDS ORDERED: ERGOCALCIFEROL 1,250 MCG (50,000 IU) CAPSULE PO SCH (09:00)
[2020-12-23] MEDS: CLINDAMYCIN TOPICAL SCH ×2 (09:07→21:32)
[2020-12-23] MEDS: CLOBETASOL PROP 0.05% OINT 15GM TOPICAL SCH ×2 (09:21→21:29)
[2020-12-23] MEDS: CITALOPRAM HYDROBROMIDE 20 MG TAB PO SCH (09:22)
[2020-12-23] MEDS: methylPREDNISolone SOD SUCC 1,000 MG in SODIUM CHLORIDE 0.9% 250 ML IVPB SCH (09:22)
[2020-12-23 11:52] LABS: Glucose,Whole Blood 206 mg/dL (75-99)
[2020-12-23 14:31] VITALS: RESP 16
--- NOTE | 2020-12-23 16:11 | P.PN ---
Subjective Progress Note Date: 12/23/20 This is a 45-year-old female who was recently admitted intractable nausea, vomiting with MS exacerbation and is being closely monitored. Neurology is following and patient states she follows with Dr. Little's colleague in the outpatient setting. Patient is currently receiving high-dose IV steroids and will continue at this time. Patient states her nausea has subsided and is tolerating diet. Patient continues to have some dizziness with position changes although states is slightly improved today. Review of systems: Constitutional: No reports of fatigue, fever, or chills Cardiovascular: No reports of chest pain or palpitations Respiratory: No reports of shortness of breath or cough GI: No reports of nausea, vomiting, or diarrhea : No reports of dysuria or retention Neurovascular: No reports of weakness or numbness, reports occasional dizziness with position changes Active Medications Amitriptyline HCl (Amitriptyline Hcl 50 Mg Tab) 50 mg PO BID [facility] Last Admin: 12/23/20 08:28 Dose: 50 mg Documented by: Artificial Tears (Artificial Tears-Hypromellose Drops 15 Ml Btl) 1 drops BOTH EYES QID [facility] Last Admin: 12/23/20 13:43 Dose: 1 drops Documented by: Ascorbic Acid (Ascorbic Acid 500 Mg Tab) 500 mg PO BID [facility] Last Admin: 12/23/20 08:28 Dose: 500 mg Documented by: Aspirin (Aspirin 81 Mg) 81 mg PO DAILY [facility] Last Admin: 12/23/20 08:28 Dose: 81 mg Documented by: Atorvastatin Calcium (Atorvastatin 10 Mg Tab) 10 mg PO QAM [facility] Last Admin: 12/23/20 08:28 Dose: 10 mg Documented by: Baclofen (Baclofen 10 Mg Tab) 10 mg PO QID [facility] Last Admin: 12/23/20 13:43 Dose: 10 mg Documented by: Citalopram Hydrobromide (Citalopram Hydrobromide 20 Mg Tab) 40 mg PO QAM [facility] Last Admin: 12/23/20 09:22 Dose: 40 mg Documented by: Clobetasol Propionate (Clobetasol Prop 0.05% Oint 15gm) 1 applic TOPICAL BID [facility] Last Admin: 12/23/20 09:21 Dose: 1 applic Documented by: Ergocalciferol (Ergocalciferol 1,250 Mcg (50,000 Iu) Capsule) 1,250 mcg PO MO [facility] Last Admin: 12/23/20 08:30 Dose: 1,250 mcg Documented by: Heparin Sodium (Porcine) (Heparin Sodium,Porcine 5,000 Unit/Ml 1 Ml Vial) 5,000 unit SQ Q12HR [facility] Last Admin: 12/23/20 08:26 Dose: 5,000 unit Documented by: Sodium Chloride (Saline 0.9%) 1,000 mls @ 70 mls/hr IV .[id number] [facility] Last Admin: 12/22/20 13:43 Dose: Not Given Documented by: Methylprednisolone Sodium Succinate 1,000 mg/ Sodium Chloride 250 mls @ 250 mls/hr IVPB DAILY [facility] Last Admin: 12/23/20 09:22 Dose: 250 mls/hr Documented by: Insulin Aspart (Insulin Aspart (Novolog) 100 Unit/Ml Vial) 0 unit SQ [facility]; Protocol Last Admin: 12/23/20 13:42 Dose: 4 unit Documented by: Insulin Detemir (Insulin Detemir (Levemir) 100 Unit/Ml Syr) 20 unit SQ [facility] Last Admin: 12/22/20 20:55 Dose: 20 unit Documented by: Ketotifen Fumarate (Ketotifen 0.025% Ophth Drops 5 Ml Btl) 1 drops BOTH EYES BID PRN PRN Reason: ALLERGY SYMPTOMS Lactic Acid (Ammonium Lactate 12% Cream 140 Gm Tube) 1 applic TOPICAL BID PRN PRN Reason: dry feet Linagliptin (Linagliptin 5 Mg Tablet) 5 mg PO DAILY [facility] Last Admin: 12/23/20 08:30 Dose: 5 mg Documented by: Lisinopril (Lisinopril 2.5 Mg Tab) 2.5 mg PO HS [facility] Last Admin: 12/22/20 20:54 Dose: 2.5 mg Documented by: Magnesium Oxide (Magnesium Oxide 400 Mg Tab) 400 mg PO QAM [facility] Last Admin: 12/23/20 08:28 Dose: 400 mg Documented by: Meclizine HCl (Meclizine 25 Mg Tab) 25 mg PO TID PRN PRN Reason: Vertigo Last Admin: 12/20/20 12:35 Dose: 25 mg Documented by: Naloxone HCl (Naloxone 0.4 Mg/Ml 1 Ml Vial) 0.2 mg IV Q2M PRN PRN Reason: Opioid Reversal Ubrogepant [Ubrelvy] (50 Mg Tablet) 50 mg PO DAILY PRN PRN Reason: Migraine Headache Patient's Own ( Dextroamphetamine/Amphetamine [ Adderall] 20 Mg Tablet) 20 mg PO BID@0700,1400 [facility] Last Admin: 12/23/20 13:44 Dose: Not Given Documented by: Patient's Own Med ( Dapagliflozin Propanediol [Farxiga ] 10 Mg Tablet) 10 mg PO DAILY [facility] Last Admin: 12/23/20 08:31 Dose: Not Given Documented by: Patient's Own ( Clindamycin Gel 1 Applic Applic) 1 applic TOPICAL BID [facility] Last Admin: 12/23/20 09:07 Dose: Not Given Documented by: Ondansetron HCl (Ondansetron 4 Mg/2 Ml Vial) 4 mg IVP Q8HR PRN PRN Reason: Nausea And Vomiting Ondansetron HCl (Ondansetron 4 Mg Tab) 8 mg PO BID PRN PRN Reason: Nausea Oxybutynin Chloride (Oxybutynin 10 Mg Tab.Er.24) 10 mg PO QAM [facility] Last Admin: 12/23/20 08:29 Dose: 10 mg Documented by: Pantoprazole Sodium (Pantoprazole 40 Mg/10 Ml Vial) 40 mg IVP BID [facility] Last Admin: 12/23/20 08:28 Dose: 40 mg Documented by: Polyethylene Glycol (Polyethylene Glycol 3350 17 Gm Powd.Pack) 17 gm PO QAM PRN PRN Reason: Constipation Tramadol HCl (Tramadol 50 Mg Tab) 50 mg PO TID [facility] Last Admin: 12/23/20 08:28 Dose: 50 mg Documented by: Objective - Vital Signs Vital signs: Vital Signs Temp 98.2 F 12/23/20 14:00 Pulse 86 12/23/20 15:00 Resp 16 12/23/20 14:00 BP 150/85 12/23/20 15:00 Pulse Ox 95 12/23/20 14:00 Intake & Output 12/22/20 12/23/20 12/23/20 18:59 06:59 18:59 Intake Total 3290 Balance 3290 Intake: Intake, IV Titration 1090 Amount Sodium Chloride 0.9% 1, 840 000 ml @ 70 mls/hr IV . [id number] [facility] Rx#:[id number] methylPREDNISolone SOD 250 SUCC 1,000 mg In Sodium Chloride 0.9% 250 ml @ 250 mls/hr IVPB DAILY [facility] Rx#:[id number] Oral 2200 Other: Voiding Method Toilet Toilet Toilet # Voids 3 - Exam Gen: This is a 45-year-old female, awake, alert and oriented 3, well-developed, well-nourished, obese. Temp is 98.5F, pulse is 76, respirations are 18, blood pressure is 129/79, oxygen saturation is 97% on room air. HEENT: Head is atraumatic, normocephalic. Pupils equal, round. Sclerae is ani cteric. NECK: Supple. No JVD. No lymphadenopathy. No thyromegaly. LUNGS: Diminished breath sounds bilaterally. No wheezes or rhonchi. No intercostal retractions. HEART: S1, S2 are muffled ABDOMEN: Soft. Obese. Bowel sounds are present. No masses. No tenderness. EXTREMITIES: No pedal edema. No calf tenderness. NEUROLOGICAL: Patient is awake, alert and oriented x3. Diffuse weakness. - Labs CBC & Chem 7: 12/23/20 05:44 12/23/20 05:44 Labs: Abnormal Lab Results - Last 24 Hours (Table) 12/22/20 12/22/20 12/23/20 Range/Units 17:20 20:13 05:44 WBC 16.2 H (3.8-10.6) k/uL Neutrophils # 12.7 H (1.3-7.7) k/uL BUN/Creatinine Ratio (12.00-20.00) Ratio Glucose (70-110) mg/dL POC Glucose (mg/dL) 388 H 330 H (75-99) mg/dL 12/23/20 12/23/20 12/23/20 Range/Units 05:44 06:39 11:51 WBC (3.8-10.6) k/uL Neutrophils # (1.3-7.7) k/uL BUN/Creatinine Ratio 33.75 H (12.00-20.00) Ratio Glucose 171 H (70-110) mg/dL POC Glucose (mg/dL) 171 H 206 H (75-99) mg/dL Assessment and Plan Assessment: Intractable vertigo, vomiting with possible multiple sclerosis, acute exacerbation Elevated blood glucose, diabetes mellitus type 2, uncontrolled with hyperglycemia History of multiple sclerosis Fibromyalgia Gastroesophageal reflux disease Chronic liver disease degenerative joint disease History of sleep apnea History of muscle spasms history of peripheral neuropathy History of irritable bowel syndrome history of constipation history of bariatric surgery history of cholecystectomy history of claustrophobia History of anxiety, depression, posttraumatic stress disorder obesity with body mass index of 43 Full code Recommendations and discussion: Recommend to continue with current medications, management, and symptomatic treatment. Patient is maintained on high dose IV steroids and will continue. Neurology is following. Continue to monitor blood sugars before meals and at bedtime and treat accordingly. Due to multiple complex medical issues, prognosis is guarded. Patient requires over a two night hospitalization stay for MS exacerbation with extreme dizziness and weakness along with nausea and vomiting. Further recommendations to follow based on the clinical course of the patient. Possible discharge in 24-48 hours.
[2020-12-23 16:36] LABS: Glucose,Whole Blood 264 mg/dL (75-99)
--- NOTE | 2020-12-23 18:24 | P.PN ---
Subjective Progress Note Date: 12/23/20 The patient stated that she's been feeling better since she's been in the hospital. Denies any worsening of the weakness, numbness, denies any visual disturbance or difficulty swallowing or getting her words out. The patient was being followed over the weekend by Dr. Olguin, please refer to his note for further details of history. Objective - Vital Signs Vital signs: Vital Signs Temp 98.2 F 12/23/20 14:00 Pulse 86 12/23/20 15:00 Resp 16 12/23/20 14:00 BP 150/85 12/23/20 15:00 Pulse Ox 95 12/23/20 14:00 Intake & Output 12/22/20 12/23/20 12/23/20 18:59 06:59 18:59 Intake Total 3290 Balance 3290 Intake: Intake, IV Titration 1090 Amount Sodium Chloride 0.9% 1, 840 000 ml @ 70 mls/hr IV . [id number] [facility] Rx#:[id number] methylPREDNISolone SOD 250 SUCC 1,000 mg In Sodium Chloride 0.9% 250 ml @ 250 mls/hr IVPB DAILY [facility] Rx#:[id number] Oral 2200 Other: Voiding Method Toilet Toilet Toilet # Voids 3 1 - Exam GENERAL: The patient is lying in bed and is not in acute distress. NEUROLOGICAL: Higher mental function: The patient is awake, alert, oriented to self, place and time. Patient is following commands. No aphasia and no neglect. Cranial nerves: The pupils are round, equal and reactive to light and accommodation. Visual luis are full to confrontation throughout. Extraocular movement is intact no nystagmus is noted. Facial sensation is normal to touch throughout. The facial strength is normal throughout. Hearing is normal bilaterally to hand rub. Tongue is midline and moved [id number] without any difficulty. No dysarthria is noted. Motor: The strength is 5 over 5 throughout. Normal tone and bulk. Cerebellar: Normal finger to nose bilaterally.. - Labs CBC & Chem 7: 12/23/20 05:44 12/23/20 05:44 Labs: Abnormal Lab Results - Last 24 Hours (Table) 12/22/20 12/23/20 12/23/20 Range/Units 20:13 05:44 05:44 WBC 16.2 H (3.8-10.6) k/uL Neutrophils # 12.7 H (1.3-7.7) k/uL BUN/Creatinine Ratio 33.75 H (12.00-20.00) Ratio Glucose 171 H (70-110) mg/dL POC Glucose (mg/dL) 330 H (75-99) mg/dL 12/23/20 12/23/20 12/23/20 Range/Units 06:39 11:51 16:35 WBC (3.8-10.6) k/uL Neutrophils # (1.3-7.7) k/uL BUN/Creatinine Ratio (12.00-20.00) Ratio Glucose (70-110) mg/dL POC Glucose (mg/dL) 171 H 206 H 264 H (75-99) mg/dL Assessment and Plan Assessment: * Hisotry of Multiple sclerosis with no new active lesion on MRI Brain * Diabetes * Obesity Plan: * Solu-Medrol 1 g IVPB daily for 3-5 days. * Pepcid for gastric ulcer prophylaxis. * follow closely blood sugars as steroids can make blood sugars worse. * UA negative. Marcum virus negative. * B12 normal 778, folate 23.5 and TFTs on 10/08/2020. From a neurology perspective, she is clear for discharge. Patient to follow-up with Dr. Little within 1-2 weeks as an outpatient. The plan was discussed with the patient and her nurse. Dong Lockhart MD Neuro-Hospitalist Time with Patient: Less than 30
[2020-12-23] MEDS: SODIUM CHLORIDE 0.9% 1,000 ML IV SCH (20:22)
[2020-12-23 21:18] LABS: Glucose,Whole Blood 324 mg/dL (75-99)
[2020-12-23] MEDS: INSULIN DETEMIR (LEVEMIR) 100 UNIT/ML SYR SQ SCH (21:31)
[2020-12-24 03:33] VITALS: BP 131/78; PULSE 72; TEMP 98.2
[2020-12-24 07:27] LABS: Glucose,Whole Blood 168 mg/dL (75-99)
[2020-12-24] MEDS: INSULIN ASPART (NovoLOG) 100 UNIT/ML VIAL SQ SCH (07:31)
[2020-12-24] MEDS: traMADol 50 MG TAB PO SCH (08:38)
[2020-12-24] MEDS: ASCORBIC ACID 500 MG TAB PO SCH (08:38)
[2020-12-24] MEDS: methylPREDNISolone SOD SUCC 1,000 MG in SODIUM CHLORIDE 0.9% 250 ML IVPB SCH (08:38)
[2020-12-24] MEDS: ASPIRIN 81 MG PO SCH (08:38)
[2020-12-24] MEDS: MAGNESIUM OXIDE 400 MG TAB PO SCH (08:38)
[2020-12-24] MEDS: ATORVASTATIN 10 MG TAB PO SCH (08:38)
[2020-12-24] MEDS: PANTOPRAZOLE 40 MG/10 ML VIAL IVP SCH (08:38)
[2020-12-24] MEDS: CITALOPRAM HYDROBROMIDE 20 MG TAB PO SCH (08:38)
[2020-12-24] MEDS: HEPARIN SODIUM,PORCINE 5,000 UNIT/ML 1 ML VIAL SQ SCH (08:38)
[2020-12-24] MEDS: AMITRIPTYLINE HCL 50 MG TAB PO SCH (08:38)
[2020-12-24] MEDS: ARTIFICIAL TEARS-HYPROMELLOSE DROPS 15 ML BTL BOTH EYES SCH (08:39)
[2020-12-24] MEDS: PATIENT'S OWN (Dextroamphetamine/Amphetamine [Adderall] 20 MG Tablet) PO SCH (08:39)
[2020-12-24] MEDS: CLINDAMYCIN TOPICAL SCH (08:39)
[2020-12-24] MEDS: BACLOFEN 10 MG TAB PO SCH (08:39)
[2020-12-24] MEDS: LINAGLIPTIN 5 MG TABLET PO SCH (08:40)
[2020-12-24] MEDS: OXYBUTYNIN 10 MG TAB.ER.24 PO SCH (08:40)
[2020-12-24] MEDS: DAPAGLIFLOZIN PROPANEDIOL 10 MG PO SCH (08:41)
[2020-12-24] MEDS: CLOBETASOL PROP 0.05% OINT 15GM TOPICAL SCH (08:41)
--- NOTE | 2020-12-24 14:59 | P.DS ---
Providers Date of admission: 12/23/20 14:37 Expected date of discharge: 12/24/20 Attending physician: Larry Vasquez Consults: 12/20/20 10:46 Consult Physician Routine Consulting Provider: Khloe Olguin Consult Reason/Comments: vertigo Do you want consulting provider notified?: Yes Primary care physician: Aneudy Díaz [facility] Course: Final diagnosis Intractable vertigo, vomiting with possible multiple sclerosis, acute exacerbation Elevated blood glucose, diabetes mellitus type 2, uncontrolled with hyperglycemia History of multiple sclerosis Fibromyalgia Gastroesophageal reflux disease Chronic liver disease degenerative joint disease History of sleep apnea History of muscle spasms history of peripheral neuropathy History of irritable bowel syndrome history of constipation history of bariatric surgery history of cholecystectomy history of claustrophobia History of anxiety, depression, posttraumatic stress disorder obesity with body mass index of 43 Full code Discharge disposition Patient is being discharged in a stable condition with guarded prognosis to home. Patient will follow-up with primary care provider Dr. Sharron Díaz upon discharge. Patient will follow-up with Dr. Little in the outpatient setting upon discharge. Patient will continue on a short prednisone taper. Total time taken is greater than 35 minutes. Hospital course This is a 45-year-old female who was recently admitted with intractable nausea, vomiting, also multiple sclerosis exacerbation and was being closely monitored. She was seen and evaluated by neurology during hospitalization. Patient will follow-up with her neurologist Dr. Little's colleague and has an appointment scheduled for this . She was maintained on high-dose IV steroids and will continue with short prednisone taper upon discharge. Patient significantly improved and has no further reports of nausea or vomiting noted. Patient is tolerating diet. Currently no reports of chest pain, shortness of breath, or palpitations. Patient is afebrile. No reports of nausea or vomiting and patient is tolerating diet. Patient will be discharged home today. On exam vital signs are stable. Respiratory system shows diminished breath sounds at the bases with no wheezing or rhonchi noted. Abdomen is soft and nontender. Nervous system shows no focal deficits. Please refer to medication reconciliation sheet for a list of medications. Patient Condition at Discharge: Fair Plan - Discharge Summary Discharge Rx Participant: No New Discharge Prescriptions: New Meclizine [Antivert] 25 mg PO TID PRN #30 tab PRN Reason: Vertigo predniSONE 10 mg PO DIRECTED #12 tab Continue Citalopram Hydrobromide [CeleXA] 40 mg PO QAM Biotin 10,000 mcg PO QAM Baclofen 10 mg PO QID Amitriptyline HCl [Elavil] 50 mg PO BID traMADol HCL [Ultram] 50 mg PO TID ondansetron HCL [Zofran] 8 mg PO BID PRN PRN Reason: Nausea Simvastatin [Zocor] 10 mg PO QAM Oxybutynin Chloride [Ditropan XL] 10 mg PO QAM sitaGLIPtin [Januvia] 100 mg PO DAILY Ascorbic Acid [Vitamin C] 500 mg PO BID lisinopriL [Zestril] 2.5 mg PO HS Ammonium Lactate Cream [Lac-Hydrin 12% Cream] 1 applic TOPICAL BID PRN PRN Reason: dry feet Clindamycin Gel [Clindamycin Phosphate 1% Gel] 1 applic TOPICAL BID Artificial Tears-Hypromellose [Artificial Tear Drops] 1 drops BOTH EYES QID Magnesium Oxide [Magox 400] 400 mg PO QAM Ergocalciferol [Vitamin D2 (DRISDOL)] 50,000 unit PO MO Ubrogepant [Ubrelvy] 50 mg PO DAILY PRN PRN Reason: Migraine Headache Olopatadine HCl 1 applic BOTH EYES TID PRN PRN Reason: Allergy Symptoms polyethylene glycoL 3350 [Miralax] 17 gm PO QAM PRN PRN Reason: Constipation Halobetasol Propionate [Ultravate] 1 applic TOPICAL BID Erenumab-Aooe [Aimovig Autoinjector] 140 mg SQ QMONTH Dextroamphetamine/Amphetamine [Adderall] 20 mg PO BID Aspirin EC [Ecotrin Low Dose] 81 mg PO DAILY Dapagliflozin Propanediol [Farxiga] 10 mg PO DAILY Oxyle Mouth Wash 15 ml PO BID Discontinued Meclizine [Antivert] 12.5 mg PO TID PRN PRN Reason: DIZZINESS Discharge Medication List Citalopram Hydrobromide [CeleXA] 40 mg PO QAM 04/15/14 [History] Biotin 10,000 mcg PO QAM 04/29/16 [History] Baclofen 10 mg PO QID 06/28/17 [History] Amitriptyline HCl [Elavil] 50 mg PO BID 04/14/18 [History] ondansetron HCL [Zofran] 8 mg PO BID PRN 04/14/18 [History] traMADol HCL [Ultram] 50 mg PO TID 04/14/18 [History] Ascorbic Acid [Vitamin C] 500 mg PO BID 02/02/19 [History] Oxybutynin Chloride [Ditropan XL] 10 mg PO QAM 02/02/19 [History] Simvastatin [Zocor] 10 mg PO QAM 02/02/19 [History] sitaGLIPtin [Januvia] 100 mg PO DAILY 02/02/19 [History] lisinopriL [Zestril] 2.5 mg PO HS 02/06/19 [History] Ammonium Lactate Cream [Lac-Hydrin 12% Cream] 1 applic TOPICAL BID PRN 04/03/19 [History] Clindamycin Gel [Clindamycin Phosphate 1% Gel] 1 applic TOPICAL BID 04/03/19 [History] Artificial Tears-Hypromellose [Artificial Tear Drops] 1 drops BOTH EYES QID 05/23/19 [History] Magnesium Oxide [Magox 400] 400 mg PO QAM 06/20/20 [History] Dextroamphetamine/Amphetamine [Adderall] 20 mg PO BID 06/27/20 [History] Erenumab-Aooe [Aimovig Autoinjector] 140 mg SQ QMONTH 06/27/20 [History] Ergocalciferol [Vitamin D2 (DRISDOL)] 50,000 unit PO MO 06/27/20 [History] Halobetasol Propionate [Ultravate] 1 applic TOPICAL BID 06/27/20 [History] Olopatadine HCl 1 applic BOTH EYES TID PRN 06/27/20 [History] Ubrogepant [Ubrelvy] 50 mg PO DAILY PRN 06/27/20 [History] polyethylene glycoL 3350 [Miralax] 17 gm PO QAM PRN 06/27/20 [History] Aspirin EC [Ecotrin Low Dose] 81 mg PO DAILY 12/20/20 [History] Dapagliflozin Propanediol [Farxiga] 10 mg PO DAILY 12/20/20 [History] Oxyle Mouth Wash 15 ml PO BID 12/20/20 [History] Meclizine [Antivert] 25 mg PO TID PRN #30 tab 12/24/20 [Rx] predniSONE 10 mg PO DIRECTED #12 tab 02/02/21 [Rx] [facility]Ref[facility] - Aneudy Díaz DO [Primary Care Provider] - 1-2 days Activity/Diet/Wound Care/Special Instructions: activity limited until follow up follow up with neuro this continue current diet follow up with primary care provider upon discharge Discharge/Stand Alone Forms: Who Do I Call?, Help In The Home Discharge Disposition: HOME SELF-CARE
== END 2020-12-24 13:40 | disposition home or self-care (01) | DRG 59 ==
LOC: EC 08:10 → 6NMEDSUR 10:47 → OBSVTOIN 12-23 14:37
PROVIDERS: ADMIT Hospitalist; ATTEND Hospitalist
DX: G35 Multiple sclerosis (principal); Z68.41 Body mass index [BMI] 40.0-44.9, adult; Z20.822 Contact with and (suspected) exposure to COVID-19; M19.90 Unspecified osteoarthritis, unspecified site; K76.9 Liver disease, unspecified; K21.9 Gastro-esophageal reflux disease without esophagitis; G89.29 Other chronic pain; F43.10 Post-traumatic stress disorder, unspecified; E66.9 Obesity, unspecified; E11.65 Type 2 diabetes mellitus with hyperglycemia; D17.9 Benign lipomatous neoplasm, unspecified; M85.80 Other specified disorders of bone density and structure, unspecified site; M79.7 Fibromyalgia; Z98.84 Bariatric surgery status; Z90.710 Acquired absence of both cervix and uterus; Z90.49 Acquired absence of other specified parts of digestive tract; Z86.19 Personal history of other infectious and parasitic diseases; Z83.3 Family history of diabetes mellitus; Z82.49 Family history of ischemic heart disease and other diseases of the circulatory system; Z81.8 Family history of other mental and behavioral disorders; Z79.899 Other long term (current) drug therapy; Z79.84 Long term (current) use of oral hypoglycemic drugs; Z79.82 Long term (current) use of aspirin; Z79.52 Long term (current) use of systemic steroids; Z88.2 Allergy status to sulfonamides; Z88.8 Allergy status to other drugs, medicaments and biological substances; Z98.890 Other specified postprocedural states
CPT/HCPCS: 36415; 70553; 80048; 80053; 81003; 83036; 83690; 83735; 85025; 85610; 85730; 87635; 93005; 96361; 96374; 99285

== ENCOUNTER → 2020-12-31 | Outpatient (CLI) | payer MEDICARE, OTHER ==
--- NOTE | 2021-01-03 10:42 | MM ---
Reason for exam: screening (asymptomatic). Last mammogram was performed 1 year ago. History: Family history of breast cancer in paternal aunt at age 50 and breast cancer in paternal aunt. Took hormonal contraceptives for 10 years. Physical Findings: A clinical breast exam by your physician is recommended on an annual basis and results should be correlated with mammographic findings. MG 3D Screening Mammo W/Cad Bilateral CC and MLO view(s) were taken. Prior study comparison: December 28, 2019, bilateral MG 3d diag mammo w/cad [facility]. August 02, 2018, bilateral MG 3d screening mammo w/cad. The breast tissue is heterogeneously dense. This may lower the sensitivity of mammography. No significant changes when compared with prior studies. ASSESSMENT: Negative, BI-RAD 1 RECOMMENDATION: Routine screening mammogram of both breasts in 1 year.
== END | disposition home or self-care (01) ==
LOC: RADMAMWWP 13:10
PROVIDERS: ATTEND Surgery
DX: Z12.31 Encounter for screening mammogram for malignant neoplasm of breast (principal)
CPT/HCPCS: 77063; 77067

== ENCOUNTER 2021-08-10 10:21 | Emergency (ER) | payer MEDICARE, OTHER ==
[2021-08-10 10:28] VITALS: BP 151/102; PULSE 102; RESP 18; TEMP 98.6
[2021-08-10] MEDS ORDERED: KETOROLAC 15 MG/ML 1 ML VIAL IM STA (10:53)
--- NOTE | 2021-08-10 11:05 | ED ---
General Adult HPI - General Chief complaint: Extremity Injury, Upper Stated complaint: shoulder pain Time Seen by Provider: 08/10/21 10:31 Source: patient, RN notes reviewed Mode of arrival: ambulatory Limitations: no limitations - History of Present Illness Initial comments: 46-year-old female presents to the emergency room for left shoulder pain. Jeni domínguez has chronic issues with the left shoulder. States that has been bothering her for quite some time. However on Wednesday morning she lifted her 280 pound mother off of the bathroom floor and her shoulder pain flared up. Patient states it has been painful since that time. She has been taking her pain medication tramadol and muscle relaxers and it has not been helping. She did apply topical Motrin as well which did help but the pain did continue. Patient states she has had an MRI in the past that did have a tear of one of the rotator cuff muscles.Patient has no other complaints at this time including shortness of breath, chest pain, abdominal pain, nausea or vomiting, headache, or visual changes. - Related Data Home Medications Medication Instructions Recorded Confirmed Citalopram Hydrobromide [CeleXA] 40 mg PO QAM 04/15/14 07/09/21 Biotin 10,000 mcg PO QAM 04/29/16 07/09/21 Baclofen 10 mg PO QID 06/28/17 07/09/21 Amitriptyline HCl [Elavil] 50 mg PO BID 04/14/18 07/09/21 ondansetron HCL [Zofran] 8 mg PO BID PRN 04/14/18 07/09/21 traMADol HCL [Ultram] 50 mg PO TID 04/14/18 07/09/21 Ascorbic Acid [Vitamin C] 500 mg PO BID 02/02/19 07/09/21 Oxybutynin Chloride [Ditropan XL] 10 mg PO QAM 02/02/19 07/09/21 Simvastatin [Zocor] 10 mg PO QAM 02/02/19 07/09/21 sitaGLIPtin [Januvia] 100 mg PO DAILY 02/02/19 07/09/21 lisinopriL [Zestril] 2.5 mg PO HS 02/06/19 07/09/21 Ammonium Lactate Cream [Lac-Hydrin 1 applic TOPICAL BID PRN 04/03/19 07/09/21 12% Cream] Clindamycin Gel [Cleocin T 1% Gel] 1 applic TOPICAL BID 04/03/19 07/09/21 Artificial Tears-Hypromellose 1 drops BOTH EYES QID 05/23/19 07/09/21 [Artificial Tear Drops] Magnesium Oxide [Magox 400] 400 mg PO QAM 06/20/20 07/09/21 Dextroamphetamine/Amphetamine 20 mg PO BID 06/27/20 07/09/21 [Adderall] Erenumab-Aooe [Aimovig 140 mg SQ QMONTH 06/27/20 07/09/21 Autoinjector] Ergocalciferol [Vitamin D2 50,000 unit PO MO 06/27/20 07/09/21 (DRISDOL)] Halobetasol Propionate [Ultravate 1 applic TOPICAL BID 06/27/20 07/09/21 0.05%] Olopatadine HCl 1 applic BOTH EYES TID PRN 06/27/20 07/09/21 Ubrogepant [Ubrelvy] 50 mg PO DAILY PRN 06/27/20 07/09/21 polyethylene glycoL 3350 [Miralax] 17 gm PO QAM PRN 06/27/20 07/09/21 Aspirin EC [Ecotrin Low Dose] 81 mg PO DAILY 12/20/20 07/09/21 Dapagliflozin Propanediol [Farxiga] 10 mg PO DAILY 12/20/20 07/09/21 Oxyle Mouth Wash 15 ml PO BID 12/20/20 07/09/21 Previous Rx's Medication Instructions Recorded Meclizine [Antivert] 25 mg PO TID PRN #30 tab 12/24/20 predniSONE 10 mg PO DIRECTED #12 tab 12/24/20 Allergies Allergy/AdvReac Type Severity Reaction Status Date / Time pregabalin [From Lyrica] Allergy Severe Anaphylaxis Verified 08/10/21 10:28 Sulfa (Sulfonamide Allergy Severe Anaphylaxis, Verified 08/10/21 10:28 Antibiotics) Rash/Hives Review of Systems ROS Statement: Those systems with pertinent positive or pertinent negative responses have been documented in the HPI. ROS Other: All systems not noted in ROS Statement are negative. Past Medical History Past Medical History: Diabetes Mellitus, Fibromyalgia, GERD/Reflux, Liver Disease, Musculoskeletal Disorder, Osteoarthritis (OA), Skin Disorder, Sleep Apnea/CPAP/BIPAP Additional Past Medical History / Comment(s): Multiple sclerosis/muscle spasms, vertigo, chronic abdominal pain/told d/t lipomas, NIDDM type II, neuropathy bilateral feet, hiatal hernia, past H pylori, umbilical hernia, IBS, constipation, degenerative arthritis, migraines, osteopenia, MACHO but no longer needs Cpap since weight loss, urinary incontinence, lisinopril is for kidney protection, adult acne, fatigue. History of Any Multi-Drug Resistant Organisms: None Reported Past Surgical History: Bariatric Surgery, Cholecystectomy, Hysterectomy, Joint Replacement, Orthopedic Surgery, Uterine Ablation Additional Past Surgical History / Comment(s): Total R hip, bilateral knee arthroscopies, total L knee, janice en Y, EGD, colonoscopy, laparoscopic lysis of abdominal adhesions. Past Anesthesia/Blood Transfusion Reactions: Motion Sickness, Postoperative Nausea & Vomiting (PONV) Additional Past Anesthesia/Blood Transfusion Reaction / Comment(s): CLAUSTERPHOBIA Past Psychological History: Anxiety, Depression, PTSD Smoking Status: Never smoker Past Alcohol Use History: None Reported Past Drug Use History: None Reported - Past Family History Mother Family Medical History: Diabetes Mellitus, Hyperlipidemia, Hypertension Additional Family Medical History / Comment(s): OBESITY, DEPRESSION. GRANDFATHER HAD DVT Father Family Medical History: Coronary Artery Disease (CAD), Diabetes Mellitus, Hyperlipidemia, Hypertension, Myocardial Infarction ([place]), Renal Disease Additional Family Medical History / Comment(s): GOUT, CARDIAC STENTS General Exam Limitations: no limitations General appearance: alert, in no apparent distress Head exam: Present: atraumatic Eye exam: Present: normal appearance, PERRL, EOMI. Absent: scleral icterus, conjunctival injection ENT exam: Present: normal exam, mucous membranes moist Neck exam: Present: normal inspection, full ROM. Absent: tenderness Respiratory exam: Present: normal lung sounds bilaterally. Absent: respiratory distress, wheezes Cardiovascular Exam: Present: regular rate, normal rhythm, normal heart sounds Extremities exam: Present: normal capillary refill (Capillary refill less than 2 seconds, radial pulse 2+ left upper extremity), other (Sensation intact left arm). Absent: full ROM (90 flexion and abduction of the left shoulder), tenderness, joint swelling Neurological exam: Present: alert Course Vital Signs 08/10/21 10:25 Temperature 98.6 F Pulse Rate 102 H Respiratory 18 Rate Blood Pressure 151/102 O2 Sat by Pulse 97 Oximetry Medical Decision Making - Medical Decision Making Vitals stable. Patient is mildly hypertensive likely secondary to pain. Patient has been 90 flexion and abduction of the left shoulder. No erythema or increased warmth. No edema. No external signs of trauma. X-ray of the left shoulder shows a mild early degenerative change developing at the before meals joint without acute osseous abnormality. At this time patient will be sent home with Tylenol 3 which may help more than tramadol. Patient will follow-up with her orthopedic surgeon. She does have a surgeon and take her. She will return here for any worsening symptoms. Disposition Clinical Impression: Shoulder pain, left Disposition: HOME SELF-CARE Condition: Good Instructions (If sedation given, give patient instructions): Shoulder Pain (ED) Additional Instructions: Please follow up with primary care and orthopedics in 1-2 days. You may need MRI. Return to the emergency room for any worsening symptoms. Is patient prescribed a controlled substance at d/c from ED?: No Referrals: Aneudy Díaz DO [Primary Care Provider] - 1-2 days Time of Disposition: 11:31
--- NOTE | 2021-08-10 11:18 | XR ---
EXAMINATION TYPE: XR shoulder complete LT DATE OF EXAM: 08/10/2021 Comparison: None Clinical History: 46-year-old female pain Findings: AC joint appears intact. Minimal subchondral cystic change distal clavicle and mild capsular hypertro phy. Subacromial space is preserved. No acute fracture, subluxation, or dislocation seen. Impression: Mild early degenerative changes developing at the AC joint. No acute osseous abnormality seen.
[2021-08-10] MEDS ORDERED: ACET/COD 300 MG/30 MG STARTER PACK 6 TAB BTL PO STA (11:32)
== END 2021-08-10 12:01 | disposition home or self-care (01) ==
LOC: EC 10:21
DX: M25.512 Pain in left shoulder (principal); E11.9 Type 2 diabetes mellitus without complications; M19.90 Unspecified osteoarthritis, unspecified site; M79.7 Fibromyalgia; G43.909 Migraine, unspecified, not intractable, without status migrainosus; Z88.8 Allergy status to other drugs, medicaments and biological substances; Z88.2 Allergy status to sulfonamides; Z88.6 Allergy status to analgesic agent; Z79.899 Other long term (current) drug therapy; Z79.84 Long term (current) use of oral hypoglycemic drugs
CPT/HCPCS: 73030; 99283; 96372; J1885

== ENCOUNTER → 2021-09-03 | Outpatient (CLI) | payer MEDICARE, OTHER ==
[2021-09-03 16:20] VITALS: BP 152/90; PULSE 103; RESP 18; TEMP 98.1; BMI 41.9
--- NOTE | 2021-09-03 16:29 | P.HPBAR ---
Bariatric H&P - History & Physicial H&P Date: 09/03/21 History & Physicial: Visit/CC: Patient initial contact: Initial weight: 124.33 kg Initial weight in pounds: Height: 5 ft 2.5 in Initial BMI: Last weight: Current weight: 105.687 kg Current weight in pounds: Current BMI: [place] body weight (based on NIH guidelines): Excess body weight loss: The patient is a 46 year-old F who presents for Bariatric Assessment. Has lowest weight of 182 pounds in 2017, now 233 with 50 pounds weight gain. She has multiple sclerosis. She has lipoma along the abdomen. She had 9 lipomas removed. She sees a plastic surgeon. She needs a breast reduction. She reports new left rib pain. She comes in with moderate weight regain with blood sugars 130 to 140s. Her last A1c 7.2%. She is stress eating. Her mother has regained all of her weight since bariatric surgery. Past Medical History Past Medical History: CVA/TIA, Diabetes Mellitus, Eye Disorder, Fibromyalgia, GERD/Reflux, Liver Disease, Musculoskeletal Disorder, Osteoarthritis (OA), Skin Disorder, Sleep Apnea/CPAP/BIPAP Additional Past Medical History / Comment(s): Multiple sclerosis/muscle spasms, vertigo, chronic abdominal pain/told d/t lipomas, NIDDM type II, neuropathy bilateral feet, hiatal hernia, past H pylori, umbilical hernia, IBS, constipation, degenerative arthritis, migraines, osteopenia, MACHO but no longer needs Cpap since weight loss, urinary incontinence, lisinopril is for kidney protection, adult acne, fatigue. TIA 08/17/2014. neuritis (left eye) - 2018. History of Any Multi-Drug Resistant Organisms: None Reported Past Surgical History: Bariatric Surgery, Cholecystectomy, Hysterectomy, Joint Replacement, Orthopedic Surgery, Uterine Ablation Additional Past Surgical History / Comment(s): Total R hip, bilateral knee arthroscopies, total L knee, janice en Y, EGD, colonoscopy, laparoscopic lysis of abdominal adhesions. rt knee meniscus tear. rt carpal tunnel surgery. left carpal tunnel surgery. lipomas removed. Past Anesthesia/Blood Transfusion Reactions: Motion Sickness, Postoperative Nausea & Vomiting (PONV) Additional Past Anesthesia/Blood Transfusion Reaction / Comm: CLAUSTERPHOBIA Past Psychological History: Anxiety, Depression, PTSD Additional Psychological History / Comment(s): Pt resides alone with her 2 dogs. She is independent. Smoking Status: Never smoker Past Alcohol Use History: None Reported Additional Past Alcohol Use History / Comment(s): Never smoker Past Drug Use History: None Reported - Past Family History Mother Family Medical History: Diabetes Mellitus, Hyperlipidemia, Hypertension Additional Family Medical History / Comment(s): OBESITY, DEPRESSION. GRANDFATHER HAD DVT Father Family Medical History: Coronary Artery Disease (CAD), Diabetes Mellitus, Hyperlipidemia, Hypertension, Myocardial Infarction ([place]), Renal Disease Additional Family Medical History / Comment(s): GOUT, CARDIAC STENTS Bariatric Checklist Checklist: Plan: Checklist: EGD: 1. Hiatal hernia: 2. H. Pylori: HgbA1c: Vitamin D: Smoking: Never smoker Primary care physician referral: ana brown clearance: Cardiology clearance: Sleep study: Diet journal: VTE risk score: VTE risk level: Rehab needs at discharge:
== END ==
LOC: BARWHC3 15:55
PROVIDERS: ATTEND Surgery Plastic and Reconstructive Surgery
DX: E66.01 Morbid (severe) obesity due to excess calories (principal); Z68.41 Body mass index [BMI] 40.0-44.9, adult
CPT/HCPCS: 99211

== ENCOUNTER → 2021-09-11 | Outpatient (CLI) | payer MEDICARE, OTHER ==
[2021-09-11 12:14] LABS: INR 0.9 (<1.2); Partial Thromboplastin Time 23.2 sec (22.0-30.0); Prothrombin Time 9.4 sec (9.0-12.0)
[2021-09-11 19:09] LABS: HCT 44.4 % (37.2-46.3); HGB 13.7 g/dL (12.0-15.0); MCH 26.3 pg (27.0-32.0); MCHC 30.9 g/dL (32.0-37.0); MCV 85.2 fL (80.0-97.0); Mean Platelet Volume 10.1 fL (9.5-12.2); Platelet Count 433 X 10*3/uL (140-440); RBC 5.21 X 10*6/uL (4.10-5.20); RDW 15.8 % (11.5-14.5); WBC 8.64 X 10*3/uL (4.50-10.00)
[2021-09-11 21:32] LABS: Erythrocyte Sedimentation Rate 13 mm/Hr (0-20)
[2021-09-12 02:11] LABS: Chol/HDL Ratio 2.97 Ratio; LDL Cholesterol,Calculated 81.6 mg/dL (0.0-131.0)
[2021-09-12 02:12] LABS: % Iron Saturation 8.89 (12.00-45.00); ALT 32 U/L (8-44); AST 24 U/L (13-35); African American GFR (CKD) 93.8 (60.0-200.0); Albumin 4.4 g/dL (3.8-4.9); Albumin/Globulin Ratio 1.95 (1.60-3.17); Alkaline Phosphatase 132 U/L (41-126); BUN/Creat Ratio 22.56 Ratio (12.00-20.00); Blood Urea Nitrogen 19.2 mg/dL (9.0-27.0); Calcium 9.2 mg/dL (8.7-10.3); Carbon Dioxide 23.6 mmol/L (21.6-31.8); Chloride 105 mmol/L (96-109); Ferritin 24.1 ng/mL (10.0-291.0); Globulin 2.2 g/dL (1.6-3.3); Glucose 100 mg/dL (70-110); Iron 42 ug/dL (50-170); Magnesium 2.4 mg/dL (1.5-2.4); Non-African American GFR(CKD) 80.9 (60.0-200.0); Phosphorus 4.3 mg/dL (2.4-5.1); Potassium 4.5 mmol/L (3.5-5.5); Prealbumin 25.9 mg/dL (18.0-42.0); Sodium 142 mmol/L (135-145); Total Iron Binding Capacity 469 ug/dL (228-460); Total Protein 6.6 g/dL (6.2-8.2)
[2021-09-12 03:36] LABS: Folate, Serum >20.00 ng/mL (4.40-31.00)
[2021-09-12 14:53] LABS: Zinc, Serum 65 ug/dL (60-130)
[2021-09-15 07:09] LABS: Vitamin A 69 ug/dL (38-106)
== END | disposition home or self-care (01) ==
LOC: LABWHC1 11:24
PROVIDERS: ATTEND Surgery Plastic and Reconstructive Surgery
DX: E89.1 Postprocedural hypoinsulinemia (principal); D50.8 Other iron deficiency anemias; E44.0 Moderate protein-calorie malnutrition; E55.9 Vitamin D deficiency, unspecified; K74.1 Hepatic sclerosis; N19 Unspecified kidney failure; K50.90 Crohn's disease, unspecified, without complications
CPT/HCPCS: 36415; 80053; 80061; 82306; 82525; 82607; 82728; 82746; 83036; 83540; 83550; 83735; 83970; 84100; 84134; 84255; 84425; 84443; 84590; 84630; 85027; 85610; 85652; 85730; 86038; 86140

== ENCOUNTER → 2021-10-01 | Outpatient (CLI) | payer MEDICARE, OTHER ==
--- NOTE | 2021-10-01 15:01 | P.BASOAP ---
Subjective Progress Note Date: 10/01/21 She lost weight from recent tooth extraction. Blood work reviewed. No anemia. She is undergoing rheumatology work-up for Raynauds. She is looking into breast reduction. Recommend dietary assessment for diabetes and gastric bypass. Assessment/Plan Plan: Date: Initial Weight: 124.33 kg Initial BMI: Current Weight: Current BMI: Type of Surgery: Total Volume in Band: Previous Volume: Volume Removed: Volume Added: Band Size:
[2021-10-01 15:04] VITALS: BP 137/86; PULSE 89; RESP 18; TEMP 98.7; BMI 41.0
== END | disposition home or self-care (01) ==
LOC: BARWHC3 14:41
PROVIDERS: ATTEND Surgery Plastic and Reconstructive Surgery
DX: E66.01 Morbid (severe) obesity due to excess calories (principal); Z68.41 Body mass index [BMI] 40.0-44.9, adult
CPT/HCPCS: 99211

== ENCOUNTER → 2021-10-06 | Outpatient (CLI) | payer MEDICARE, OTHER ==
[2021-10-06 15:37] VITALS: BMI 41.8
== END | disposition home or self-care (01) ==
LOC: BARWHC3 14:05
PROVIDERS: ATTEND Surgery Plastic and Reconstructive Surgery
DX: E66.01 Morbid (severe) obesity due to excess calories (principal); Z68.41 Body mass index [BMI] 40.0-44.9, adult
CPT/HCPCS: 97803

== ENCOUNTER → 2021-11-11 | Outpatient (CLI) | payer MEDICARE, OTHER ==
[2021-11-11 14:51] LABS: Basophils # (A) 0.06 X 10*3/uL (0.00-0.10); Basophils % (A) 0.5 %; Eosinophils # (A) 0.16 X 10*3/uL (0.04-0.35); Eosinophils % (A) 1.4 %; HCT 47.8 % (37.2-46.3); HGB 15.3 g/dL (12.0-15.0); Lymphocytes # (A) 2.58 X 10*3/uL (0.90-5.00); Lymphocytes % (A) 22.2 %; MCV 84.5 fL (80.0-97.0); Mean Platelet Volume 10.3 fL (9.5-12.2); Monocytes # (A) 0.84 X 10*3/uL (0.20-1.00); Monocytes % (A) 7.2 %; Neutrophils # (A) 7.89 X 10*3/uL (1.80-7.70); Neutrophils % (A) 68.1 %; Platelet Count 403 X 10*3/uL (140-440); RBC 5.66 X 10*6/uL (4.10-5.20); RDW 15.1 % (11.5-14.5)
[2021-11-11 16:07] LABS: Hepatitis A Antibody IgM Nonreactive (Nonreactive); Hepatitis B Core IgM Nonreactive (Nonreactive)
[2021-11-11 16:22] LABS: African American GFR (CKD) 107.9 (60.0-200.0); Albumin 4.3 g/dL (3.8-4.9); Anion Gap 15.3 mmol/L (10.00-18.00); BUN/Creat Ratio 22.82 Ratio (12.00-20.00); Blood Urea Nitrogen 17.3 mg/dL (9.0-27.0); Carbon Dioxide 22.4 mmol/L (20.0-27.5); Globulin 2.2 g/dL (1.6-3.3); Non-African American GFR(CKD) 93.1 (60.0-200.0); T4, Free (Free Thyroxine) 1.04 ng/dL (0.800-1.800); Total Bilirubin 0.9 mg/dL (0.30-1.20); Total Protein 6.5 g/dL (6.2-8.2)
[2021-11-12 11:19] LABS: HIV-1 RNA Not detected (Not detected); HIV-1 RNA, Quant <40 Copies/mL (<40)
[2021-11-13 06:19] LABS: Vit B1(Thiamine) 129 ug/L (38-122)
== END | disposition home or self-care (01) ==
LOC: LABWHC1 10:59
PROVIDERS: ATTEND Psychiatry & Neurology Pain Medicine
DX: G35 Multiple sclerosis (principal)
CPT/HCPCS: 84591; 84207; 84439; 86705; 86709; 84425; 87536; 80053; 82607; 84443; 85025; 82180; 83036; 86769; 36415; U0003; C9803

== ENCOUNTER 2021-12-07 19:29 | Emergency (ER) | payer MEDICARE, OTHER ==
[2021-12-07 20:35] VITALS: BP 139/92; PULSE 84; RESP 19; TEMP 98.7
--- NOTE | 2021-12-07 22:28 | ED ---
Nausea/Vomiting/Diarrhea HPI - General Chief complaint: Nausea/Vomiting/Diarrhea Stated complaint: Headache,Sore throat Time Seen by Provider: 12/07/21 22:12 Source: patient Mode of arrival: ambulatory - History of Present Illness Initial comments: 46-year-old female patient presented to the emergency department today for evaluation of headaches and diarrhea. Patient states she has chronic migraines and this is not new. States she has been having diarrhea for the last few weeks. States it is improving however she continues to have two soft stools daily which is unusual due to her having chronic constipation. She denies any nausea or vomiting. Denies any fever or chills. States she wanted to have a Covid test because she is supposed to get her Ocrevus infusion for MS tomorrow. She has had a negative test a couple of weeks ago. States her sister tested positive three days ago. - Related Data Home Medications Medication Instructions Recorded Confirmed Citalopram Hydrobromide [CeleXA] 40 mg PO QAM 04/15/14 10/01/21 Biotin 10,000 mcg PO QAM 04/29/16 10/01/21 Baclofen 10 mg PO QID 06/28/17 10/01/21 Amitriptyline HCl [Elavil] 50 mg PO BID 04/14/18 10/01/21 traMADol HCL [Ultram] 50 mg PO TID 04/14/18 10/01/21 Ascorbic Acid [Vitamin C] 500 mg PO BID 02/02/19 10/01/21 Oxybutynin Chloride [Ditropan XL] 10 mg PO QAM 02/02/19 10/01/21 Simvastatin [Zocor] 10 mg PO QAM 02/02/19 10/01/21 sitaGLIPtin [Januvia] 100 mg PO DAILY 02/02/19 10/01/21 lisinopriL [Zestril] 2.5 mg PO HS 02/06/19 10/01/21 Ammonium Lactate Cream [Lac-Hydrin 1 applic TOPICAL BID PRN 04/03/19 10/01/21 12% Cream] Clindamycin Gel [Cleocin T 1% Gel] 1 applic TOPICAL BID 04/03/19 10/01/21 Artificial Tears-Hypromellose 1 drops BOTH EYES QID 05/23/19 10/01/21 [Artificial Tear Drops] Magnesium Oxide [Magox 400] 400 mg PO QAM 06/20/20 10/01/21 Dextroamphetamine/Amphetamine 20 mg PO BID 06/27/20 10/01/21 [Adderall] Erenumab-Aooe [Aimovig 140 mg SQ QMONTH 06/27/20 10/01/21 Autoinjector] Ergocalciferol [Vitamin D2 50,000 unit PO MO 06/27/20 10/01/21 (DRISDOL)] Olopatadine HCl 1 applic BOTH EYES TID PRN 06/27/20 10/01/21 Aspirin EC [Ecotrin Low Dose] 81 mg PO DAILY 12/20/20 10/01/21 Dapagliflozin Propanediol [Farxiga] 10 mg PO DAILY 12/20/20 10/01/21 Oxyle Mouth Wash 15 ml PO BID 12/20/20 10/01/21 Calcium Citrate 500 mg PO TID 09/03/21 10/01/21 Chlorhexidine Gluconate [Hibiclens] 1 applic TOPICAL DIRECTED 09/03/21 10/01/21 Diclofenac Sodium Gel [Voltaren 4 gm TOPICAL QID 09/03/21 10/01/21 Gel] Fluocinonide 0.05% [Lidex 0.05% 1 applic TOPICAL BID 09/03/21 10/01/21 cream] Halobetasol Propionate [Ultravate 1 applic TOPICAL BID 09/03/21 10/01/21 0.05%] L.acidoph,Paracasei, B.lactis 1 each PO DAILY 09/03/21 10/01/21 [Probiotic] Meclizine [Antivert] 12.5 mg PO TID PRN 09/03/21 10/01/21 Multivitamins, Thera [Multivitamin 1 tab PO BID 09/03/21 10/01/21 (formulary)] Simvastatin [Zocor] 10 mg PO HS 09/03/21 10/01/21 Tacrolimus/Hyaluronate/Niacin 1 applic TOPICAL DIRECTED 09/03/21 10/01/21 [Oxianujo 4%-0.1% Cream] Ubrogepant [Ubrelvy] 50 mg PO DIRECTED 09/03/21 10/01/21 ondansetron HCL [Zofran] 8 mg PO Q8HR PRN 09/03/21 10/01/21 polyethylene glycoL 3350 [Miralax] 17 gm PO DAILY PRN 09/03/21 10/01/21 Ferrous Sulfate [Iron] 324 mg PO DAILY 10/01/21 10/01/21 Allergies Allergy/AdvReac Type Severity Reaction Status Date / Time pregabalin [From Lyrica] Allergy Severe Anaphylaxis Verified 12/07/21 20:31 Sulfa (Sulfonamide Allergy Severe Anaphylaxis, Verified 12/07/21 20:31 Antibiotics) Rash/Hives Review of Systems ROS Statement: Those systems with pertinent positive or pertinent negative responses have been documented in the HPI. ROS Other: All systems not noted in ROS Statement are negative. Past Medical History Past Medical History: CVA/TIA, Diabetes Mellitus, Eye Disorder, Fibromyalgia, GERD/Reflux, Liver Disease, Musculoskeletal Disorder, Osteoarthritis (OA), Skin Disorder, Sleep Apnea/CPAP/BIPAP Additional Past Medical History / Comment(s): Multiple sclerosis/muscle spasms, vertigo, chronic abdominal pain/told d/t lipomas, NIDDM type II, neuropathy bilateral feet, hiatal hernia, past H pylori, umbilical hernia, IBS, constipation, degenerative arthritis, migraines, osteopenia, MACHO but no longer needs Cpap since weight loss, urinary incontinence, lisinopril is for kidney protection, adult acne, fatigue. TIA 08/17/2014. neuritis (left eye) - 2018. History of Any Multi-Drug Resistant Organisms: None Reported Past Surgical History: Bariatric Surgery, Cholecystectomy, Hysterectomy, Joint Replacement, Orthopedic Surgery, Uterine Ablation Additional Past Surgical History / Comment(s): Total R hip, bilateral knee arthroscopies, total L knee, janice en Y, EGD, colonoscopy, laparoscopic lysis of abdominal adhesions. rt knee meniscus tear. rt carpal tunnel surgery. left carpal tunnel surgery. lipomas removed. Past Anesthesia/Blood Transfusion Reactions: Motion Sickness, Postoperative Nausea & Vomiting (PONV) Additional Past Anesthesia/Blood Transfusion Reaction / Comment(s): CLAUSTERPHOBIA Past Psychological History: Anxiety, Depression, PTSD Smoking Status: Never smoker Past Alcohol Use History: None Reported Past Drug Use History: None Reported - Past Family History Mother Family Medical History: Diabetes Mellitus, Hyperlipidemia, Hypertension Additional Family Medical History / Comment(s): OBESITY, DEPRESSION. GR ANDFATHER HAD DVT Father Family Medical History: Coronary Artery Disease (CAD), Diabetes Mellitus, Hyperlipidemia, Hypertension, Myocardial Infarction ([place]), Renal Disease Additional Family Medical History / Comment(s): GOUT, CARDIAC STENTS General Exam General appearance: alert, in no apparent distress, other (This is a well- developed, well-nourished adult female in no acute distress.) Respiratory exam: Present: normal lung sounds bilaterally. Absent: respiratory distress, wheezes, rales, rhonchi, stridor Cardiovascular Exam: Present: regular rate, normal rhythm, normal heart sounds. Absent: systolic murmur, diastolic murmur, rubs, gallop, clicks GI/Abdominal exam: Present: soft, normal bowel sounds. Absent: distended, tenderness, guarding, rebound, rigid Neurological exam: Present: alert, oriented X3, CN II-XII intact Psychiatric exam: Present: normal affect, normal mood Skin exam: Present: warm, dry, intact, normal color. Absent: rash Course Vital Signs 12/07/21 20:31 Temperature 98.7 F Pulse Rate 84 Respiratory 19 Rate Blood Pressure 139/92 O2 Sat by Pulse 97 Oximetry Medical Decision Making - Medical Decision Making 46-year-old male patient presented for evaluation of headaches and diarrhea. Physical examination revealed soft nontender abdomen. She is afebrile. Normal vital signs. She tested negative for COVID-19. Given history is seems that her diarrhea is actually improving. She is tolerating oral intake without difficulty. Having no hematochezia or melena. She'll be discharged to follow-up with her primary care physician for recheck in 1-2 days. Return parameters were discussed in detail. She verbalizes understanding and agrees with this plan. My attending is Dr. Tafoya. - Lab Data Lab Results 12/07/21 Range/Units 20:37 Influenza Type A (PCR) Not Detected (Not Detectd) Influenza Type B (PCR) Not Detected (Not Detectd) RSV (PCR) Not Detected (Not Detectd) SARS-CoV-2 (PCR) Not Detected (Not Detectd) Disposition Clinical Impression: Diarrhea Disposition: HOME SELF-CARE Condition: Good Instructions (If sedation given, give patient instructions): Acute Diarrhea (ED) Additional Instructions: Increase fluids. Consider using Gatorade or Powerade to replace electrolytes if your diarrhea continues. Follow-up with your primary care physician for recheck in 1-2 days. Return for any new, worsening, or concerning symptoms. Is patient prescribed a controlled substance at d/c from ED?: No Referrals: Aneudy Díaz DO [Primary Care Provider] - 1-2 days Time of Disposition: 22:28
== END 2021-12-07 22:33 | disposition home or self-care (01) ==
LOC: EC 19:29
DX: R19.7 Diarrhea, unspecified (principal); R51.9 Headache, unspecified; R07.0 Pain in throat; R11.2 Nausea with vomiting, unspecified; E11.9 Type 2 diabetes mellitus without complications; K21.9 Gastro-esophageal reflux disease without esophagitis; M19.90 Unspecified osteoarthritis, unspecified site; Z86.73 Personal history of transient ischemic attack (TIA), and cerebral infarction without residual deficits; Z20.822 Contact with and (suspected) exposure to COVID-19; Z88.8 Allergy status to other drugs, medicaments and biological substances; Z88.2 Allergy status to sulfonamides; Z79.899 Other long term (current) drug therapy; Z79.82 Long term (current) use of aspirin; Z79.84 Long term (current) use of oral hypoglycemic drugs
CPT/HCPCS: 87636; 99283

== ENCOUNTER → 2022-04-17 | Outpatient (CLI) | payer MEDICARE, OTHER ==
--- NOTE | 2022-04-21 17:32 | MM ---
Reason for Exam: Screening (asymptomatic). Last mammogram was performed 1 year(s) and 3 month(s) ago. Patient History: Menarche at age 10. First Full-Term at age 20. Hysterectomy at age 37. Patient used Hormonal Contraceptives for 10 years. Paternal aunt had breast cancer, age 50. Paternal aunt had breast cancer under age 50. Risk Values: Rossana 5 year model risk: 0.8%. NCI Lifetime model risk: 8.2%. Film Views: Bilateral CC views were taken. Bilateral MLO views were taken. 2 view(s) taken. Left CV views were taken. Prior Study Comparison: 08/02/2018 Bilateral Screening Mammogram, [facility]. 12/28/2019 Bilateral Diagnostic Mammogram, [facility]. 12/31/2020 Bilateral Screening Mammogram, [facility]. Tissue Density: There are scattered fibroglandular densities. Findings: Analyzed By CAD. Unchanged subtle grouped microcalcifications medial left breast. Focal asymmetry redemonstrated lateral right breast along with small oil cyst calcifications upper outer quadrant anterior left breast. No significant change from prior exams. Overall Assessment: Benign, BI-RAD 2 Management: Screening Mammogram of both breasts in 1 year. A clinical breast exam by your physician is recommended on an annual basis and results should be correlated with mammographic findings. Also, the patient should continue monthly self breast exams. Electronically signed and approved by: Juni Mae M.D. Radiologist
== END | disposition home or self-care (01) ==
LOC: RADMAMWWP 10:18
PROVIDERS: ATTEND Surgery
DX: Z12.31 Encounter for screening mammogram for malignant neoplasm of breast (principal)
CPT/HCPCS: 77063; 77067

== ENCOUNTER → 2022-05-12 | Outpatient (CLI) | payer MEDICARE, OTHER | END | disposition home or self-care (01) | LOC: SLEEP 15:00 | PROVIDERS: ATTEND Internal Medicine Critical Care Medicine | DX: Z53.9 Procedure and treatment not carried out, unspecified reason (principal); G47.30 Sleep apnea, unspecified ==

== ENCOUNTER → 2022-05-14 | Outpatient (CLI) | payer MEDICARE, OTHER ==
--- NOTE | 2022-05-12 16:30 | P.PN ---
Subjective Progress Note Date: 05/12/22 A 47-year-old female patient who is coming in for ongoing difficulty with fatigue and tiredness during the day and poor sleep quality at nighttime. This is an ongoing problem and the patient has seen in the past. The sleep center. At that time, I diagnosed this patient having chronic comorbid insomnia exacerbate further by multiple comorbid factors and poor sleep hygiene measures. Note that the patient continues to have poor sleep hygiene measures where she has an irregular sleep-wake cycle and she goes to sleep at various times that she wakes up various times and she cannot maintain a regular sleep schedule. Same time, her comorbid conditions are extensive and the patient as mentioned earlier is a case of multiple sclerosis and she remains under treatment with Ocrevus chronic anxiety/PTSD, degenerative disc disease with chronic pain, fibromyalgia syndrome, hiatal hernia, IBS, migraines, optic neuritis involving the left eye, osteoarthritis, osteopenia, Raynaud's disease and diabetes mellitus and the patient has had previous history of mini strokes features chronic iron deficiency anemia, and stress urinary incontinence. The patient has undergone previous bariatric surgery. The patient has lost significant amount of weight and over the past 3 years she has gained around 20 pounds back. During her last polysomnography, the patient was not found to have a sleep breathing disorder the patient's apnea popping index was less than 5. The patient has not been off of any CPAP therapy. Note that during her last polysomnogram, the patient showed a deficiency of sleep of 90% as the patient was able to generate 5 hours and 57 minutes of sleep and the sleep latency was around 28 minutes and placed to REM sleep was around 31 minutes. The patient was also being treated with Adderall during the day for stimulation. She still taken at around a dose of 20 mg twice a day. She takes the first tablet whenever she wakes up in the morning and the second tablet at around 3 PM. She is also on baclofen for chronic pain and muscle relaxation. She is on diabetic treatment and she is currently on examination of Januvia and Farxiga and glimepiride. She takes tramadol for pain control and she is also on oxybutynin for stress urinary incontinence.. She wakes up constantly in the middle of the night. She prefers to sleep on her side. No sleep paralysis. No hallucinations. Objective - Exam BP is 128/77 and a pulse of 96 and respiration of 16 and temperature 97.7 with a saturation of 97% on room air and her [place] score is at 18 with a body mass index of 43.7. Weight is 243. The patient appeared well nourished and normally developed. Vital signs as documented. Head exam is unremarkable. No scleral icterus or corneal arcus noted. Neck is without jugular venous distension, thyromegaly, or carotid bruits. Carotid upstrokes are brisk bilaterally. Lungs are clear to auscultation and percussion. Cardiac exam reveals the PMI to be normally sized and situated. Rhythm is regular. First and second heart sounds normal. No murmurs, rubs or gallops. Abdominal exam reveals normal bowel sounds, no masses, no organomegaly and no aortic enlargement. Extremities are nonedematous and both femoral and pedal pulses are normal.Examination of the skin revealed no evidence of significant rashes, suspicious appearing nevi or other concerning lesions.Neurologically, the patient is awake and alert and the patient does not have any focal neurological deficit. Cranial nerves are essentially intact. Assessment and Plan Plan: Comorbid insomnia. The patient has chronic difficulties with sleep induction and maintenance and this has been exacerbated by various comorbidities, medication that she takes in addition to very poor sleep hygiene measures and irregular sleep schedule. I think the majority of her problems are related to her poor sleep hygiene measures and comorbid conditions. Chronic fatigue Diabetes mellitus type 2 Febrile myalgia with secondary chronic pain Multiple sclerosis with history of optic neuritis Osteoarthritis Migraines Muscle spasm History of vertigo Irritable bowel syndrome Chronic constipation Stress urinary incontinence Iron deficiency anemia Hiatal hernia Chronic fatigue History of CVA, mini strokes Plan very complicated patient with all of these comorbidities and medication in addition to poor sleep hygiene measures. I spent quite some time with this patient talking about cognitive behavioral therapies, sleep restriction and stimulus control in addition to maintaining a regular sleep schedule. I also emphasized the importance of maintaining good sleep hygiene measures patient should be able to continue the Adderall for now for daytime stimulation. We'll do another sleep study to reevaluate his sleep quality, efficiency, looking for any other form of underlying sleep breathing disorder that could further complicated condition. Encourage weight loss pH is post bariatric surgery.
[2022-05-14 09:50] VITALS: BP 132/88; PULSE 94; RESP 18; TEMP 98.8
--- NOTE | 2022-05-14 10:50 | P.PN ---
Subjective Progress Note Date: 05/14/22 Principal diagnosis: breast pain/fibrocystic breast disease fibrocystic breast disease breast pain Jes is a 47 year old white female seen in consultation for Dr. Díaz on 06-20-20 with a complaint of bilateral nipple discharge. She had had bilateral nipple discharge for several years, this was felt to be fibrocystic in nature. She had a bilateral mammogram performed on 2619 which was benign however right breast ultrasound was recommended this was done negative BIRADS 1 and routine mammogram of both breasts 1 year recommended. She complained both breasts were nodular however nothing had changed . She was not complaining of any pain in her breast. She had right hip replacement on July 23, 2020. After this she had back pain and was on steroids and was complaining of increased bilateral breast pain. The pain became increased with swelling and painful on . She had not done anything other than the steroids prior to this. She had a hysterectomy but her ovaries were not removed. She does states that she has a history of ovarian cyst and had pain in her RLQ just before the breast pain started. This was on Sep 18, 2020. The pain in her RLQ had improved prior to her visit at that time. She thinks she may be periomenopausal. She had bilateral breast ultrasound on September 1120 this was benign BIRADS 1. The nipple discharge is turbid in nature. It is more on the right than on the left. It occurs daily. It is found in her bra. She has bilateral nipple discharge, this is not changed. She states that her breast feel lumpy everywhere. The patient was noted some subcutaneous nodules in her abdomen and thighs in the posterior aspect of her arms. A bilateral breast MRI was done on 11-08-20, this was suboptimal but no evidence of malignancy was noted. 05-14-22 Bilateral mammogram on 04-17-22 was BIRAD 2 She complains of some nodularity bilaterally in her breast and states that she thinks she has several new nodules in both breast. She continues to have bilateral nipple discharge which has not changed and has not been bloody. The nodules were noted 4 months ago, they are painful. Caffeine: Diet Coke 20 ounces a day/ decreased the amount Nicotine: Negative chocolate: Occasional Hormones: Negative/ patient's suspect she may be post menopausal; she had a hysterectomy 2011 for pain and bleeding Family history: paternal grandmother: colon cancer paternal aunts (2): breast cancer Hormonal history: Menarche: 9 , breast fed: none, age at first : 20 Hysterectomy at 37 for bleeding Hormones: Negative Surgical history: Left knee replacement Small bowel obstruction Bariatric surgery Right rotator cuff surgery Hysterectomy Uterine ablation/tubal ligation Right knee meniscus tear Right carpal tunnel Left carpal tunnel Cholecystectomy A lateral release left knee Schedule July 23 for right hip replacement; right hip replacement on July 23 lipomas form abdomen Medical history Multiple sclerosis Migraines Osteoarthritis Fatigue Incontinence Iron deficiency anemia Neuritis left eye Fibromyalgia Insomnia TIA/mini stroke Diabetes Thyroid nodule Osteopenia Hiatal hernia The degenerative disc disease Irritable bowel syndrome Vitamin D deficiency H. pylori ear pain Depression Anxiety Lichen sclerosus back pain being tested for rheumatoid arthritis Rynards disease back pain/ was scheduled for a breast reduction Social history: Nicotine: Negative Alcohol: Negative Drugs: Negative Behcet's disease Objective - Vital Signs Vital signs: Vital Signs Temp 98.8 F 05/14/22 09:45 Pulse 94 05/14/22 09:45 Resp 18 05/14/22 09:45 BP 132/88 05/14/22 09:45 Pulse Ox 97 05/14/22 09:45 FiO2 Intake & Output 05/13/22 05/14/22 05/14/22 18:59 06:59 18:59 Weight 108.862 kg - Exam BMI: 43.2 - Constitutional General appearance: Present: cooperative - EENT Eyes: Present: EOMI ENT: Present: hearing grossly normal - Neck Neck: Present: normal ROM - Respiratory Respiratory: bilateral: CTA - Cardiovascular Heart sounds: normal: S1, S2 - Gastrointestinal General gastrointestinal: Present: soft - Integumentary Integumentary: Present: normal turgor - Musculoskeletal Musculoskeletal: Present: gait normal - Psychiatric Psychiatric: Present: A&O x's 3, appropriate affect, intact judgment & insight - Additional findings Additional findings: Breast Exam: BRA: 42G inspection: bilateral grade 3 ptosis palpation: right breast: Right breast slightly larger than left breast Palpation: Right breast multiple positional exam fibrocystic changes no dominant masses or nodules of concern Right axilla: No adenopathy of concern Left breast: Multiple positional exam fibrocystic changes no dominant masses or nodules of concern Left axilla: No adenopathy of concern Bilateral green nipple discharge guaiac negative; the area of nodularity the patient notes in both breasts appears to be fibrocystic no discrete masses of concern are appreciated Assessment and Plan Assessment: Impression: Multiple sclerosis Migraines Osteoarthritis Fatigue Incontinence Iron deficiency anemia Neuritis left eye Fibromyalgia Insomnia TIA/mini stroke Diabetes Thyroid nodule Osteopenia Hiatal hernia The degenerative disc disease Irritable bowel syndrome Vitamin D deficiency H. pylori ear pain Depression Anxiety Lichen sclerosus back pain being tested for rheumatoid arthritis Rynards disease back pain/ was scheduled for a breast reduction Fibrocystic breast changes/nothing which would warrant interventional biopsy at this time Fibrocystic bilateral nipple discharge guaiac negative Patient probably menopausal Plan: FSH, estradiaol, LH, TSH bilateral mammogram in 1 year patient is cleared from a breast stand point to have a reduction CC: Dr. Díaz
== END | disposition home or self-care (01) ==
LOC: WWCWWP 09:13
PROVIDERS: ATTEND Surgery
DX: Z53.9 Procedure and treatment not carried out, unspecified reason (principal)

== ENCOUNTER → 2022-05-22 | Outpatient (CLI) | payer MEDICARE, OTHER ==
[2022-05-22 15:09] LABS: Follicle Stimulating Hormone 24.5 mIU/mL; Luteinizing Hormone 28.3 mIU/mL
== END | disposition home or self-care (01) ==
LOC: LABWHC1 08:44
PROVIDERS: ATTEND Surgery
DX: N95.9 Unspecified menopausal and perimenopausal disorder (principal)
CPT/HCPCS: 36415; 82670; 83001; 83002; 84443

== ENCOUNTER → 2023-04-21 | Outpatient (CLI) | payer MEDICARE, OTHER ==
--- NOTE | 2023-04-22 07:59 | MM ---
Reason for Exam: Screening (asymptomatic). Last screening mammogram was performed 12 month(s) ago. Patient History: Menarche at age 10. First Full-Term at age 20. Hysterectomy at age 37. Patient used Hormonal Contraceptives for 10 years. Paternal aunt had breast cancer, age 50. Paternal aunt had breast cancer under age 50. Risk Values: Rossana 5 year model risk: 0.9%. NCI Lifetime model risk: 8.0%. Prior Study Comparison: 12/28/2019 Bilateral Diagnostic Mammogram, [facility]. 12/31/2020 Bilateral Screening Mammogram, [facility]. 04/17/2022 Bilateral MG 3D screening mammo w/cad, [facility]. Tissue Density: The breast tissue is heterogeneously dense. This may lower the sensitivity of mammography. Findings: Analyzed By CAD. There is no suspicious group of microcalcifications or new suspicious mass in either breast. Overall Assessment: Negative, BI-RAD 1 Management: Screening Mammogram of both breasts in [address] [facility] will attempt to contact patient to return for supplemental views and ultrasound if indicated. Patient should continue monthly self-breast exams. A clinical breast exam by your physician is recommended on an annual basis. This exam should not preclude additional follow-up of suspicious palpable abnormalities. Note on Rossana scores and lifetime risk: 1. A Rossana score greater than 3% is considered moderate risk. If this is the case, consider specialist referral to assess eligibility for a risk reducing agent. 2. If overall lifetime risk for the development of breast cancer is 20% or higher, the patient may qualify for future screening with alternating mammogram and breast MRI. Electronically signed and approved by: Jonah Santiago DO
== END | disposition home or self-care (01) ==
LOC: RADMAMWWP 14:03
PROVIDERS: ATTEND Surgery
DX: Z12.31 Encounter for screening mammogram for malignant neoplasm of breast (principal); Z80.3 Family history of malignant neoplasm of breast
CPT/HCPCS: 77063; 77067

== ENCOUNTER → 2023-06-23 | Outpatient (CLI) | payer MEDICARE, OTHER ==
[2023-06-23 13:52] LABS: INR 0.9 (<1.2); Partial Thromboplastin Time 23.5 sec (22.0-30.0); Prothrombin Time 9.4 sec (9.0-12.0)
[2023-06-23 16:47] LABS: HCT 49.9 % (37.2-46.3); HGB 16.1 d/dL (12.0-15.0); MCH 28.5 pg (27.0-32.0); MCHC 32.3 d/dL (32.0-37.0); MCV 88.3 FL (80.0-97.0); Mean Platelet Volume 10.9 FL (9.5-12.2); NRBC Per 100 WBC 0 X 10*3/uL (0.00-0.01); Platelet Count 378 X 10*3/uL (140-440); RBC 5.65 X 10*6/uL (4.10-5.20); RDW 12.5 % (11.5-14.5); WBC 10.92 X 10*3/uL (4.50-10.00)
[2023-06-23 16:49] LABS: Prealbumin 35.1 mg/dL (18.0-42.0)
[2023-06-23 17:14] LABS: % Iron Saturation 12.47 (12.00-45.00); ALT 30 U/L (8-44); AST 22 U/L (13-35); Albumin 4.8 d/dL (3.8-4.9); Albumin/Globulin Ratio 2.09 Ratio (1.60-3.17); Alkaline Phosphatase 126 U/L (41-126); BUN/Creat Ratio 20.12 Ratio (12.00-20.00); Blood Urea Nitrogen 16.1 mg/dL (9.0-27.0); Calcium 9.5 mg/dL (8.7-10.3); Carbon Dioxide 23.7 mmol/L (21.6-31.8); Chloride 104 mmol/L (96-109); Globulin 2.3 d/dL (1.6-3.3); Glucose 105 mg/dL (70-110); Iron 51 UG/DL (50-170); LDL Cholesterol,Calculated 91.5 mg/dL (0.0-131.0); Magnesium 1.9 mg/dL (1.5-2.4); Phosphorus 3.7 mg/dL (2.4-5.1); Potassium 4.4 mmol/L (3.5-5.5); Sodium 141 mmol/L (135-145); Total Bilirubin 0.7 mg/dL (0.3-1.2); Total Iron Binding Capacity 409 UG/DL (228-460); Total Protein 7.1 d/dL (6.2-8.2)
[2023-06-24 13:11] LABS: Zinc, Serum 62 ug/dL (60-130)
[2023-06-25 09:54] LABS: Vit B1(Thiamine) 88 ug/L (38-122)
== END | disposition home or self-care (01) ==
LOC: LABWHC1 12:49
PROVIDERS: ATTEND Surgery Plastic and Reconstructive Surgery
DX: E89.1 Postprocedural hypoinsulinemia (principal); E66.01 Morbid (severe) obesity due to excess calories; D50.8 Other iron deficiency anemias; K91.2 Postsurgical malabsorption, not elsewhere classified; E44.0 Moderate protein-calorie malnutrition; E44.1 Mild protein-calorie malnutrition; E45 Retarded development following protein-calorie malnutrition; E55.9 Vitamin D deficiency, unspecified; K74.1 Hepatic sclerosis; N19 Unspecified kidney failure; T56.894A Toxic effect of other metals, undetermined, initial encounter; K50.90 Crohn's disease, unspecified, without complications
CPT/HCPCS: 36415; 80053; 80061; 82306; 82525; 82607; 82728; 82746; 83036; 83540; 83550; 83735; 83970; 84100; 84134; 84255; 84425; 84443; 84590; 84630; 85027; 85610; 85730

== ENCOUNTER → 2023-09-14 | Outpatient (CLI) | payer MEDICARE, OTHER ==
[2023-09-14 13:44] LABS: Basophils % (A) 1 %; Eosinophils # (A) 0.2 k/uL (0-0.7); Eosinophils % (A) 2 %; HCT 45.3 % (34.0-46.0); HGB 15.1 gm/dL (11.4-16.0); Lymphocytes # (A) 2.5 k/uL (1.0-4.8); Lymphocytes % (A) 29 %; MCH 29.6 pg (25.0-35.0); MCHC 33.3 g/dL (31.0-37.0); Mean Platelet Volume 7.5; Monocytes # (A) 0.4 k/uL (0-1.0); Monocytes % (A) 5 %; Neutrophils # (A) 5.5 k/uL (1.3-7.7); Neutrophils % (A) 63 %; Platelet Count 324 k/uL (150-450); RBC 5.09 m/uL (3.80-5.40); RDW 12.8 % (11.5-15.5); WBC 8.8 k/uL (3.8-10.6)
[2023-09-14 13:52] LABS: African American GFR (CKD) >90 (>60 ml/min/1.73 sqM); Anion Gap 9 mmol/L; Blood Urea Nitrogen 17 mg/dL (7-17); Carbon Dioxide 26 mmol/L (22-30); Chloride 105 mmol/L (98-107); Glucose 107 mg/dL (74-99); Non-African American GFR(CKD) >90 (>60 ml/min/1.73 sqM); Potassium 4.1 mmol/L (3.5-5.1); Sodium 140 mmol/L (137-145)
[2023-09-14 13:59] LABS: INR 0.9 (<1.2); Partial Thromboplastin Time 23.2 sec (22.0-30.0); Prothrombin Time 10.1 sec (10.0-12.5)
== END | disposition home or self-care (01) ==
LOC: LABWHC1 13:19
PROVIDERS: ATTEND Family Medicine
DX: Z01.812 Encounter for preprocedural laboratory examination (principal)
CPT/HCPCS: 36415; 80048; 85025; 85610; 85730

== ENCOUNTER 2023-09-15 15:08 | Day surgery (SDC) | payer MEDICARE, OTHER ==
[~2023-09-15 15:08] MED LIST changes: +DEXAMETHASONE SOD PHOSPHATE 4 MG/ML 1 ML VIAL IV ONE; -LACTATED RINGERS 1,000 ML IV SCH; -LIDOCAINE 1% 20 ML VIAL (10MG/ML) FOR IV START INTRADERMA PRN; +ONDANSETRON 4 MG/2 ML VIAL IVP ONE; -PROPOFOL 10 MG/ML 20 ML VIAL IV ONE; +metroNIDAZOLE-NS PMX 500 MG in SALINE 1 100ML.BAG IVPB PRN
[2023-09-15 15:58] LABS: Glucose,Whole Blood 108 mg/dL (70-110)
[2023-09-15] MEDS: LACTATED RINGERS 1,000 ML IV SCH (16:00)
[2023-09-15] MEDS ORDERED: SCOPOLAMINE 1 MG/72 HR PATCH TRANSDERM ONE (16:01)
[2023-09-15] MEDS ORDERED: fentaNYL (PF) 50 MCG/1 ML VIAL IVP ONE ×2 (16:07→16:29)
[2023-09-15] MEDS ORDERED: AMPICILLIN-SULBACTAM 3 GM in SODIUM CHLORIDE 0.9% 100 ML IVPB STA (16:58)
[2023-09-15] MEDS ORDERED: LIDOCAINE 1%-EPI 1:100,000 50 ML VIAL SUBMUCOSAL ONE ×2 (17:07)
[2023-09-15 19:25] LABS: Glucose,Whole Blood 146 mg/dL (70-110)
--- NOTE | 2023-09-15 19:25 | P.OP ---
Date of Procedure: 09/15/23 Preoperative Diagnosis: Displaced mandible fracture of the left mandibular angle Gross decay and periodontal disease of all remaining teeth Postoperative Diagnosis: Same Procedure(s) Performed: Open reduction and internal fixation of left mandibular angle fracture Surgical extraction of teeth numbers 2120 and 19 Implants: 2.4 mm reconstruction plate 2.4 mm screws by 10 mm in length 4 Anesthesia: ELLA Surgeon: Fidel Sterling Estimated Blood Loss (ml): 25 IV fluids (ml): 1,050 Urine output (ml): 0 Pathology: none sent Condition: stable Disposition: floor Indications for Procedure: Patient presented to outpatient clinic yesterday for full mouth extraction under IV sedation. Patient and had an exam prior discussion about removal of all of her teeth excluding and in including her wisdom teeth. The patient had significant pain of tooth #16 and 17 but no symptoms of tooth #32. Preoperatively the patient had discussed removing tooth #32 and at this time I had stressed the importance of wisdom tooth extraction with her mandibular atrophy carried a risk for multiple complications including but not limited to nerve damage and possible jaw fracture. After this we decided to only pull the wisdom teeth that were causing her pain. After IV sedation was initiated and local administered week approached tooth #16 and with gentle luxation that tooth was removed. Approaching tooth #17 noted that the tooth had perforated the lingual mucosa and had signs of infection. Bone removal and sectioning of the tooth to expose the crown was performed and gentle luxation was performed and the tooth was sectioned. An audible pop was noted and this was different than the sound of the tooth cracking and at this time suspected the mandible and fractured. The remaining parts of the tooth were removed and it was confirmed that the mandible was fractured the inferior alveolar nerve was noted at the base of the tooth socket and the mandibular segments were quite mobile. At this time the remaining of teeth were stable and the decision made to close the mandible and plan to take patient to the operating room for open reduction internal fixation. Unfortunately closed reduction wasn't possible in this case due to the patient's lack of an upper denture. These operative findings were discussed with the patient and her brother postoperatively and the patient's physician was was notified. Patient went to her physician that today for history and physical due to her complex medical history. The physician did clear the patient for anesthesia and the OR and the patient was boarded for the next day. Patient was seen in the preoperative holding area reported pain and swelling of the lower left she did report sensitivity to teeth numbers 1920 and 21 and asked that these teeth please be removed. We did express a risk any time more tooth manipulation is done the fracture could get worse but the teeth did seem to be in state of disrepair that required removal also tooth infection near the recent placed plate be catastrophic and so this was added to the treatment consent again reviewed with the patient including but not limited to permanent nerve damage scars on the face need for additional procedures to do another plate or remove this plate were reviewed and consent obtained. Also bleeding pain infection swelling or concerns and discussed with the patient patient understood these risks and had a appropriate discussion before agreed to the procedure. Description of Procedure: Patient brought to the operating room the anesthesia team performing an oral intubation without difficulty using a glide scope minimal manipulation of the mandible was performed and the patient's vocal cords were easily visualized. Patient was then prepped and draped in usual fashion for an extraoral approach or an internal approach for oral surgery. Local anesthesia totaling 20 mL's was administered extraorally and intraorally the local was 1% lidocaine with epine phrine. Throat pack was placed in a bite block was used then the incision from yesterday for the wisdom tooth extraction was opened and noted to fracture had been more displaced since yesterday at incision was in expanded crestal manner up to tooth #22 and posteriorly and laterally up towards the ramus of the mandible care taken not to involve the parotid duct. Subperiosteal dissection to the inferior border and the posterior border the ramus as well as subperiosteal dissection up to the mental nerve the nerve was visualized and left intact. Fracture is noted to be mobile Alveolar nerve appeared intact and the base of the socket of the tooth extraction and sharp pieces of bone on the lingual were noted possibly where that tooth had perforated on its attempted eruption this bone was used as a guide for reduction attempt to place a 2 mm superior tension band plate was supported I lack of bone in the area due to the removal of the wisdom tooth. The decision at that point was to place the larger 2.4 mm reconstruction plate and this was going to be done intraorally due to decent access. 1 trocar stab incision was placed after a 1 cm neck incision subcutaneously over the fracture at the angle of the mandible. This allowed access to all 4 holes in the plate the plate was then trimmed with one hole removed from a 6-hole slight curve plate burs were removed and the plate slightly bent in the anterior portion to get around the buccal bulge of the second molar area in the mandible. The proximal segment was first secured to the plate using a 10 mm screws after this part was secured a another reduction was performed with good approximation of the bones were in good contact only a slight up take of the proximal segment in an effort to make sure that the distal portion of the plate was secured in bone. The 2 distal screw holes were then drilled and 2 screws placed both a 10 mm length. Due to her atrophic mandible these links were able to catch both parts of the cortex. The grossly decayed teeth were then carefully removed using copious bone removal and very gentle luxation and delivery. The bone was burred with a bone file an effort to prevent any fenestrations of the primary closure. Copious irrigation using proximally 100 mL of saline was administered into the wound and the trocar incision was drained as well. Primary closure with 3-0 chromic gut is obtained and good coverage of the wound as well as the plate. The trocar incision was closed with 5-0 nylon. Throat pack and bite block removed dental suctioning the posterior pharynx revealed no foreign body or active bleeding. Patient should stay the night due to the late hour as well as her complicated medical history.
[2023-09-15] MEDS ORDERED: ACETAMINOPHEN TAB 325 MG TAB PO PRN (19:49)
[2023-09-15] MEDS: HYDROmorphone 0.5 MG/0.5 ML SYRINGE IVP PRN ×2 (19:53→20:08)
[2023-09-15] MEDS ORDERED: DEXTROSE 50% SYRINGE 50 ML IVP PRN ×2 (20:19)
[2023-09-15] MEDS ORDERED: KETOTIFEN 0.025% OPHTH DROPS 5 ML BTL BOTH EYES PRN (20:20)
[2023-09-15] MEDS ORDERED: polyethylene glycoL 3350 17 GM POWD.PACK PO PRN (20:20)
[2023-09-15] MEDS ORDERED: MECLIZINE 25 MG TAB PO PRN (20:20)
[2023-09-15] MEDS ORDERED: NON FORMULARY DRUG (Clindamycin Gel 1 APPLIC Gel) TOPICAL SCH (20:30)
[2023-09-15] MEDS: OXYBUTYNIN XL 5 MG TAB.ER.24 PO SCH (21:28)
[2023-09-15] MEDS: IBUPROFEN 600 MG TAB PO SCH (21:28)
[2023-09-15] MEDS: traMADol 50 MG TAB PO SCH (21:29)
[2023-09-15] MEDS: INSULIN ASPART (NovoLOG) 100 UNIT/ML VIAL SQ SCH (22:20)
[2023-09-15] MEDS: ARTIFICIAL TEARS-HYPROMELLOSE DROPS 15 ML BTL BOTH EYES SCH (23:06)
[2023-09-15] MEDS: cycloSPORINE 0.05% OPHTH 0.4 ML DROPERETTE BOTH EYES SCH (23:06)
[2023-09-16] MEDS: LACTATED RINGERS 1,000 ML IV SCH (02:02)
[2023-09-16] MEDS: AMPICILLIN-SULBACTAM 3 GM in SODIUM CHLORIDE 0.9% 100 ML IVPB SCH ×4 (02:02→20:32)
[2023-09-16 06:24] LABS: Glucose,Whole Blood 99 mg/dL (70-110)
[2023-09-16] MEDS: INSULIN ASPART (NovoLOG) 100 UNIT/ML VIAL SQ SCH ×4 (06:30→20:40)
[2023-09-16] MEDS: IBUPROFEN 600 MG TAB PO SCH ×4 (08:20→23:16)
[2023-09-16] MEDS: HYDROcodone/APAP 7.5-325MG 1 EACH TAB PO PRN ×2 (08:20→15:20)
[2023-09-16] MEDS: OXYBUTYNIN XL 5 MG TAB.ER.24 PO SCH ×3 (08:20→23:16)
[2023-09-16] MEDS: traMADol 50 MG TAB PO SCH ×4 (08:21→23:16)
[2023-09-16] MEDS: NON FORMULARY DRUG (Dextroamphetamine/Amphetamine [Adderall] 20 MG Tablet) PO SCH ×2 (08:21→23:13)
[2023-09-16] MEDS: CITALOPRAM HYDROBROMIDE 20 MG TAB PO SCH (08:23)
--- NOTE | 2023-09-16 08:24 | P.PN ---
Subjective Progress Note Date: 09/16/23 Principal diagnosis: Mandibular Fracture Left angle sp ORIF Surgical ext teeth19 20 21 One Day post op ORIF Left angle fracture and Surgical ext teeth 20 21 19. patient had good night with minimal request for pain meds. patient does report some pain this morning and concerns about pain management at home. Patient took Motrin and Tylenol and tramadol overnight. Patient's tolerating diet well able to hydrate well. Back on home medications. Objective - Vital Signs Vital signs: Vital Signs Temp 98.4 F 09/16/23 02:00 Pulse 90 09/16/23 02:00 Resp 18 09/16/23 02:00 BP 134/81 09/16/23 02:00 Pulse Ox 92 L 09/16/23 02:00 FiO2 Intake & Output 09/15/23 09/16/23 09/16/23 18:59 06:59 18:59 Intake Total 1250 400 Output Total 25 Balance 1225 400 Weight 100.5 kg 100.5 kg Intake: IV 1250 400 Output: Estimated Blood Loss 25 Other: # Voids 0 - Exam Patient's opening well the stiffness and soreness on the left side. Extraoral swelling is appropriate postsurgically approximately 1-2 cm lateral to the mandibular angle. Intraoral wounds are clean and intact no exposed bone or plate. Patient reports numbness of the inferior alveolar nerve with skin numbness on the lip in the chin on the left side. No other facial or neck swelling noted. - Labs Labs: Abnormal Lab Results - Last 24 Hours (Table) 09/15/23 Range/Units 19:24 POC Glucose (mg/dL) 146 H (70-110) mg/dL Assessment and Plan Assessment: Postoperative day 1 healing within normal limits. Numbness is expected. Pain control adequate but patient's concerns are valid. Plan: Postoperative course is within normal limits ice to the face through the end of the day and then switch to heat. Pain control appears normal but patient's concerns are valid will add Henrietta. inferior Alveolar nerve numbness expected post manipulation of the mandible. Healing of nerve and jaw will be very dependent on good glucose control Postoperative x-ray scheduled for tomorrow in the office. Discharge medications to include Augmentin 500 125 one tab by mouth 3 times a day for 10 days Henrietta 7. 03/24/2025 dispense 16 take 1 tab by mouth every 4 hours when necessary pain Time with Patient: Greater than 30
[2023-09-16] MEDS: ARTIFICIAL TEARS-HYPROMELLOSE DROPS 15 ML BTL BOTH EYES SCH ×4 (08:50→20:34)
[2023-09-16] MEDS: cycloSPORINE 0.05% OPHTH 0.4 ML DROPERETTE BOTH EYES SCH ×2 (08:50→20:34)
[2023-09-16 11:01] LABS: Blood Urea Nitrogen 12.8 mg/dL (9.0-27.0); Carbon Dioxide 24.7 mmol/L (21.6-31.8); Chloride 104 mmol/L (96-109); Glucose 89 mg/dL (70-110); Potassium 4.6 mmol/L (3.5-5.5); Sodium 141 mmol/L (135-145)
[2023-09-16 11:03] LABS: Basophils # (A) 0.04 X 10*3/uL (0.00-0.10); Basophils % (A) 0.3 %; Eosinophils # (A) 0.08 X 10*3/uL (0.04-0.35); Eosinophils % (A) 0.6 %; HGB 14.1 d/dL (12.0-15.0); Lymphocytes # (A) 3.17 X 10*3/uL (0.90-5.00); Lymphocytes % (A) 24.9 %; MCH 29.1 pg (27.0-32.0); MCHC 32.8 d/dL (32.0-37.0); MCV 88.7 FL (80.0-97.0); Mean Platelet Volume 10.4 FL (9.5-12.2); Monocytes # (A) 1.03 X 10*3/uL (0.20-1.00); Monocytes % (A) 8.1 %; NRBC Per 100 WBC 0 X 10*3/uL (0.00-0.01); Neutrophils # (A) 8.41 X 10*3/uL (1.80-7.70); Neutrophils % (A) 65.9 %; Platelet Count 339 X 10*3/uL (140-440); RBC 4.85 X 10*6/uL (4.10-5.20); RDW 12.5 % (11.5-14.5); WBC 12.75 X 10*3/uL (4.50-10.00)
[2023-09-16 11:42] LABS: Glucose,Whole Blood 110 mg/dL (70-110)
[2023-09-16 13:15] VITALS: BMI 40.5
[2023-09-16] MEDS: HEPARIN SODIUM,PORCINE 5,000 UNIT/ML 1 ML VIAL SQ SCH ×2 (15:17→20:32)
[2023-09-16] MEDS: BACLOFEN 10 MG TAB PO SCH ×3 (15:17→23:18)
[2023-09-16 16:43] LABS: Glucose,Whole Blood 137 mg/dL (70-110)
[2023-09-16 20:25] LABS: Glucose,Whole Blood 150 mg/dL (70-110)
--- NOTE | 2023-09-16 20:47 | HP ---
HISTORY AND PHYSICAL CHIEF COMPLAINTS: Pain and swelling of the left mandibular angle and mandible angle fracture and repair. HISTORY OF PRESENT ILLNESS: This is a 48-year-old woman with a past medical history of multiple medical problems including diabetes mellitus, underwent surgical extraction of teeth 20, 21, 19, and the patient also had left mandibular fracture, ORIF done by Dr. Sterling. The patient was admitted for further evaluation and treatment. There was some swelling there. There is no history of any fever or rigors. White count is mildly elevated. PAST MEDICAL HISTORY: Reviewed include diabetes mellitus, fibromyalgia, CVA, TIA, multiple sclerosis, muscle spasms, rest of the history and rest of the chart is also reviewed. HOME MEDICATIONS: Reviewed include Ultram, doses and rest of medications reviewed. ALLERGIES: Lyrica. FAMILY HISTORY: Diabetes mellitus, hypertension, hyperlipidemia. SOCIAL HISTORY: No history of smoking or alcohol. REVIEW OF SYSTEMS: A 14-point review is negative except as mentioned earlier. PHYSICAL EXAMINATION: VITAL SIGNS: Pulse is 66, blood pressure 141/98, respirations 14. HEENT: Conjunctivae normal. NECK: Some swelling and tenderness in the left angle, some periorbital swelling also present. Minimal left facial swelling present. CARDIOVASCULAR: S1, S2. RESPIRATIONS: Clear to auscultation. ABDOMEN: Soft, nontender. NERVOUS SYSTEM: No focal deficits. SKIN: No ulcer, rash, bleeding. JOINTS: No active deforming arthropathy. LABORATORY DATA: Noted. ASSESSMENT: 1. Status post ORIF of the left mandibular angle fracture and surgical extraction of teeth 20, 21, 19. 2. Elevated WBC. 3. Diabetes mellitus, type 2. 4. History of CVA, TIA. 5. History of multiple sclerosis. 6. Multiple complex medical issues. RECOMMENDATIONS AND DISCUSSION: This 48-year-old woman presented after ORIF of the mandibular fracture and surgical tooth extraction. I would recommend course of intravenous antibiotics and follow the WBC. Pain management. Resume the home medication. Monitor blood sugars closely. We will follow the patient closely with dental surgery and further recommendations to follow. See orders for details. The patient is started on IV Unasyn. MMODL / IJN: [id number] /
[2023-09-16] MEDS ORDERED: ATORVASTATIN 10 MG TAB PO SCH (21:00)
[2023-09-16] MEDS ORDERED: MAGNESIUM OXIDE 400 MG TAB PO SCH (21:00)
[2023-09-17] MEDS: HYDROcodone/APAP 7.5-325MG 1 EACH TAB PO PRN ×2 (02:10→08:47)
[2023-09-17] MEDS: AMPICILLIN-SULBACTAM 3 GM in SODIUM CHLORIDE 0.9% 100 ML IVPB SCH ×2 (02:10→09:42)
[2023-09-17] MEDS: LACTATED RINGERS 1,000 ML IV SCH (02:11)
[2023-09-17 06:13] LABS: Glucose,Whole Blood 103 mg/dL (70-110)
[2023-09-17] MEDS: INSULIN ASPART (NovoLOG) 100 UNIT/ML VIAL SQ SCH ×2 (06:15→13:29)
--- NOTE | 2023-09-17 07:53 | P.GSCN ---
History of Present Illness Consult date: 09/17/23 Reason for Consult: Mandibular fracture left angle. Requesting physician: Larry Vasquez History of present illness: Patient is 36 hours post surgery open reduction internal fixation of left mandibular angle fracture. Patient has been doing well postoperatively. Pain and swelling continues to diminish. Patient's oral intake is improving daily. Review of Systems Decreased pain. Patient feels swelling is improved. Patient reports numbness lower left lip has remained the same. Past Medical History Past Medical History: CVA/TIA, Diabetes Mellitus, Eye Disorder, Fibromyalgia, GERD/Reflux, Musculoskeletal Disorder, Osteoarthritis (OA), Skin Disorder, Sleep Apnea/CPAP/BIPAP Additional Past Medical History / Comment(s): Multiple sclerosis/muscle spasms, vertigo, chronic abdominal pain/told d/t lipomas, NIDDM type II, neuropathy bilateral feet, hiatal hernia with surgery, past H pylori, IBS, constipation, degenerative arthritis, migraines, osteopenia, MACHO but no longer needs Cpap since weight loss, urinary incontinence, lisinopril is for kidney protection, adult acne, fatigue. TIA 08/17/2014. neuritis (left eye) - 2018. Raynauds disease. History of Any Multi-Drug Resistant Organisms: None Reported Past Surgical History: Bariatric Surgery, Cholecystectomy, Hysterectomy, Joint Replacement, Orthopedic Surgery, Uterine Ablation Additional Past Surgical History / Comment(s): Total R hip, bilateral knee arthroscopies, total L/R knee, janice en Y, EGD, colonoscopy, laparoscopic lysis of abdominal adhesions. rt knee meniscus tear. rt carpal tunnel surgery. left carpal tunnel surgery. lipomas removed. Past Anesthesia/Blood Transfusion Reactions: Motion Sickness, Postoperative Nausea & Vomiting (PONV) Additional Past Anesthesia/Blood Transfusion Reaction / Comm: CLAUSTERPHOBIA Past Psychological History: Anxiety, Depression, PTSD Additional Psychological History / Comment(s): Pt resides alone with her 2 dogs. She is independent. Cane prn. Smoking Status: Never smoker Past Alcohol Use History: None Reported Additional Past Alcohol Use History / Comment(s): Never smoker Past Drug Use History: None Reported - Past Family History Mother Family Medical History: Diabetes Mellitus, Hyperlipidemia, Hypertension Additional Family Medical History / Comment(s): OBESITY, DEPRESSION. GRANDFATHER HAD DVT Father Family Medical History: Coronary Artery Disease (CAD), Diabetes Mellitus, Hyperlipidemia, Hypertension, Myocardial Infarction ([place]), Renal Disease Additional Family Medical History / Comment(s): GOUT, CARDIAC STENTS Medications and Allergies Home Medications Medication Instructions Recorded Confirmed Type Citalopram Hydrobromide [CeleXA] 40 mg PO QAM 04/15/14 09/14/23 History Baclofen 10 mg PO QID 06/28/17 09/14/23 History traMADol HCL [Ultram] 50 mg PO TID 04/14/18 09/14/23 History oxyBUTYnin chloride [Ditropan XL] 5 mg PO TID 02/02/19 09/14/23 History lisinopriL [Zestril] 2.5 mg PO HS 02/06/19 09/14/23 History Artificial Tears-Hypromellose 1 drops BOTH EYES QID 05/23/19 09/14/23 History [Artificial Tear Drops] Magnesium Oxide [Magox 400] 400 mg PO HS 06/20/20 09/14/23 History Dextroamphetamine/Amphetamine 20 mg PO BID 06/27/20 09/14/23 History [Adderall] Erenumab-Aooe [Aimovig 140 mg SQ QMONTH 06/27/20 09/14/23 History Autoinjector] Ergocalciferol [Vitamin D2 50,000 unit PO WEEKLY 06/27/20 09/14/23 History (DRISDOL)] Olopatadine HCl [Patanol 0.1%] 1 applic BOTH EYES TID PRN 06/27/20 09/14/23 History Aspirin EC [Ecotrin Low Dose] 81 mg PO DAILY 12/20/20 09/14/23 History Meclizine [Antivert] 25 mg PO TID PRN 09/03/21 09/14/23 History Simvastatin [Zocor] 10 mg PO HS 09/03/21 09/14/23 History Ubrogepant [Ubrelvy] 50 mg PO DIRECTED 09/03/21 09/14/23 History polyethylene glycoL 3350 [Miralax] 17 gm PO DAILY PRN 09/03/21 09/14/23 History Ferrous Sulfate [Iron] 324 mg PO 1200 10/01/21 09/14/23 History Ocrevus 1 injection IV Q180D 05/14/22 09/14/23 History Semaglutide [Ozempic] 2 mg SQ WEEKLY 06/23/23 09/14/23 History Chlorhexide Oral Rinse 1 dose PO DIRECTED 09/14/23 09/14/23 History Clindamycin Gel [Cleocin T 1% Gel] 1 applic TOPICAL DIRECTED 09/14/23 09/14/23 History cycloSPORINE 0.05% OPHTH SOLN 1 dose BOTH EYES BID 09/14/23 09/14/23 History [Restasis] Allergies Allergy/AdvReac Type Severity Reaction Status Date / Time pregabalin [From Lyrica] Allergy Severe Anaphylaxis Verified 09/15/23 15:37 Sulfa (Sulfonamide Allergy Severe Anaphylaxis, Verified 09/15/23 15:37 Antibiotics) Rash/Hives dexamethasone Allergy Nausea Verified 09/15/23 15:37 Surgical - Exam Vital Signs Temp Pulse Resp BP Pulse Ox 97.8 F 73 16 128/68 95 09/15/23 15:44 09/15/23 15:44 09/15/23 15:44 09/15/23 15:44 09/15/23 15:44 Patient Seen Date: 09/17/23 Patient Seen Time: 07:45 Patient's up in bed watching TV appears comfortable alert and oriented 3. Patient expresses desire to go home and see her dogs. Patient reports her pain levels have improved. The left mandibular swelling and submandibular swelling is improved excellently 50% from yesterday. No ecchymosis noted nonfluctuant swelling. Patient's opening is within normal limits intraoral wound is intact and clean. No sharp bones felt through the mucosa. Patient has diminished sensation in the lower left lip. Results Plan to get postoperative panoramic x-ray as outpatient due [facility] the [facility] much lower radiation dose than CAT scan. - Labs 09/16/23 06:59 09/16/23 06:59 Abnormal Lab Results - Last 24 Hours (Table) 09/16/23 09/16/23 09/16/23 Range/Units 06:59 06:59 06:59 WBC 12.75 H (4.50-10.00) X 10*3/uL Neutrophils # 8.41 H (1.80-7.70) X 10*3/uL Monocytes # 1.03 H (0.20-1.00) X 10*3/uL Anion Gap 12.30 H (4.00-12.00) mmol/L POC Glucose (mg/dL) (70-110) mg/dL Hemoglobin A1c 6.4 H (<=6.0) % 09/16/23 09/16/23 Range/Units 16:42 20:20 WBC (4.50-10.00) X 10*3/uL Neutrophils # (1.80-7.70) X 10*3/uL Monocytes # (0.20-1.00) X 10*3/uL Anion Gap (4.00-12.00) mmol/L POC Glucose (mg/dL) 137 H 150 H (70-110) mg/dL Hemoglobin A1c (<=6.0) % Diabetes panel 09/16/23 09/16/23 Range/Units 06:59 06:59 Sodium 141 (135-145) mmol/L Potassium 4.6 (3.5-5.5) mmol/L Chloride 104 (96-109) mmol/L Carbon Dioxide 24.7 (21.6-31.8) mmol/L BUN 12.8 (9.0-27.0) mg/dL Creatinine 0.8 (0.6-1.5) mg/dL Glucose 89 (70-110) mg/dL Hemoglobin A1c 6.4 H (<=6.0) % Calcium 9.0 (8.7-10.3) mg/dL Calcium panel 09/16/23 Range/Units 06:59 Calcium 9.0 (8.7-10.3) mg/dL Pituitary panel 09/16/23 Range/Units 06:59 Sodium 141 (135-145) mmol/L Potassium 4.6 (3.5-5.5) mmol/L Chloride 104 (96-109) mmol/L Carbon Dioxide 24.7 (21.6-31.8) mmol/L BUN 12.8 (9.0-27.0) mg/dL Creatinine 0.8 (0.6-1.5) mg/dL Glucose 89 (70-110) mg/dL Calcium 9.0 (8.7-10.3) mg/dL Adrenal panel 09/16/23 Range/Units 06:59 Sodium 141 (135-145) mmol/L Potassium 4.6 (3.5-5.5) mmol/L Chloride 104 (96-109) mmol/L Carbon Dioxide 24.7 (21.6-31.8) mmol/L BUN 12.8 (9.0-27.0) mg/dL Creatinine 0.8 (0.6-1.5) mg/dL Glucose 89 (70-110) mg/dL Calcium 9.0 (8.7-10.3) mg/dL Assessment and Plan Assessment: Postoperative day 2 healing within normal limits. Swelling is improved. Numbness is expected. Pain control improved with addition of Hackberry. Plan: Okay to discharge today Postoperative course is within normal limits. Pain control within normal limits and improving with the addition of Hackberry inferior Alveolar nerve numbness expected post manipulation of the mandible. Healing of nerve and jaw will be very dependent on good glucose control. Patient education regarding glucose control performed patient expressed understanding Postoperative x-ray scheduled for today in the office. Discharge medications to include Augmentin 500 125 one tab by mouth 3 times a day for 10 days Hackberry 7. 03/24/2025 dispense 16 take 1 tab by mouth every 4 hours when necessary pain Time with Patient: Greater than 30
[2023-09-17 08:44] VITALS: PULSE 64
[2023-09-17] MEDS ORDERED: FAMOTIDINE 20 MG/2 ML VIAL IV SCH (09:00)
[2023-09-17] MEDS: IBUPROFEN 600 MG TAB PO SCH (09:28)
[2023-09-17] MEDS: CITALOPRAM HYDROBROMIDE 20 MG TAB PO SCH (09:30)
[2023-09-17] MEDS: OXYBUTYNIN XL 5 MG TAB.ER.24 PO SCH (09:32)
[2023-09-17] MEDS: BACLOFEN 10 MG TAB PO SCH ×2 (09:32→12:00)
[2023-09-17] MEDS: traMADol 50 MG TAB PO SCH ×2 (09:35→12:02)
[2023-09-17] MEDS: ARTIFICIAL TEARS-HYPROMELLOSE DROPS 15 ML BTL BOTH EYES SCH (09:35)
[2023-09-17] MEDS: HEPARIN SODIUM,PORCINE 5,000 UNIT/ML 1 ML VIAL SQ SCH (09:39)
[2023-09-17] MEDS: NON FORMULARY DRUG (Dextroamphetamine/Amphetamine [Adderall] 20 MG Tablet) PO SCH (09:50)
[2023-09-17] MEDS: cycloSPORINE 0.05% OPHTH 0.4 ML DROPERETTE BOTH EYES SCH (10:00)
[2023-09-17 11:16] LABS: Basophils # (A) 0.09 X 10*3/uL (0.00-0.10); Eosinophils # (A) 0.33 X 10*3/uL (0.04-0.35); Eosinophils % (A) 3.7 %; HCT 45.3 % (37.2-46.3); HGB 14.3 d/dL (12.0-15.0); Lymphocytes # (A) 4.35 X 10*3/uL (0.90-5.00); Lymphocytes % (A) 48.1 %; MCH 28.7 pg (27.0-32.0); MCHC 31.6 d/dL (32.0-37.0); Mean Platelet Volume 10.7 FL (9.5-12.2); Monocytes # (A) 0.66 X 10*3/uL (0.20-1.00); Monocytes % (A) 7.3 %; NRBC Per 100 WBC 0 X 10*3/uL (0.00-0.01); Neutrophils # (A) 3.59 X 10*3/uL (1.80-7.70); Neutrophils % (A) 39.7 %; Platelet Count 378 X 10*3/uL (140-440); RBC 4.98 X 10*6/uL (4.10-5.20); RDW 12.9 % (11.5-14.5); WBC 9.04 X 10*3/uL (4.50-10.00)
[2023-09-17 11:52] LABS: Glucose,Whole Blood 85 mg/dL (70-110)
[2023-09-17] MEDS ORDERED: FERROUS SULFATE 325 MG TAB PO SCH (12:00)
[2023-09-17 12:03] LABS: BUN/Creat Ratio 15.75 Ratio (12.00-20.00); Blood Urea Nitrogen 12.6 mg/dL (9.0-27.0); Calcium 9.2 mg/dL (8.7-10.3); Carbon Dioxide 35.1 mmol/L (21.6-31.8); Chloride 104 mmol/L (96-109); Glucose 100 mg/dL (70-110); Potassium 4.4 mmol/L (3.5-5.5); Sodium 146 mmol/L (135-145)
[2023-09-17 12:35] VITALS: BP 126/84; RESP 18; TEMP 97.4
[2023-09-23] MEDS ORDERED: ERGOCALCIFEROL 1,250 MCG (50,000 IU) CAPSULE PO SCH (09:00)
[2023-09-23] MEDS ORDERED: NON FORMULARY DRUG (Semaglutide [Ozempic] 2 MG/0.75 ML Pen.Injctr) SQ SCH (09:00)
== END 2023-09-17 14:01 | disposition home or self-care (01) ==
LOC: OR 15:08 → 4SSUR 19:01 → OR 09-17 14:01
PROVIDERS: ATTEND Hospitalist
DX: S02.609A Fracture of mandible, unspecified, initial encounter for closed fracture (principal); K05.6 Periodontal disease, unspecified; E11.9 Type 2 diabetes mellitus without complications; M79.7 Fibromyalgia; D72.829 Elevated white blood cell count, unspecified; Z86.73 Personal history of transient ischemic attack (TIA), and cerebral infarction without residual deficits; G35 Multiple sclerosis; Z79.82 Long term (current) use of aspirin; Z79.1 Long term (current) use of non-steroidal anti-inflammatories (NSAID); Z79.899 Other long term (current) drug therapy; Z88.2 Allergy status to sulfonamides; Z88.8 Allergy status to other drugs, medicaments and biological substances; Z88.6 Allergy status to analgesic agent; X58.XXXA Exposure to other specified factors, initial encounter
CPT/HCPCS: 80048 ×2; 83735; 85025 ×2; 83036; 41899; 21461; C1713 ×2; J1644 ×2; J1100; J0690; J2405; J3490; J0295 ×2; J1170; J3010

== ENCOUNTER → 2024-09-27 | Outpatient (CLI) | payer MEDICARE, OTHER ==
[2024-09-27 10:27] LABS: African American GFR (CKD) >90 (>60 ml/min/1.73 sqM); Blood Urea Nitrogen 19 mg/dL (7-17); Non-African American GFR(CKD) >90 (>60 ml/min/1.73 sqM)
--- NOTE | 2024-09-27 11:07 | CT ---
EXAMINATION TYPE: CT angio chest CT DLP: 445.9 mGycm, Automated exposure control for dose reduction was used. DATE OF EXAM: 09/27/2024 10:54 AM COMPARISON: CTA chest 12/06/2015 CLINICAL INDICATION:Female, 49 years old with history of I26.99 PULMONARY EMBOLISM; r/o PE, SOB TECHNIQUE/CONTRAST: CTA scan of the thorax is performed with IV Contrast, patient injected with 100 mL of Isovue 300, pul monary embolism protocol. MIP images are created and reviewed. FINDINGS: Pulmonary Artery: There is no evidence for a filling defect within the pulmonary vasculature to sugge st acute pulmonary embolism. The pulmonary artery is of normal size. Lungs/Pleura: No pleural effusion or pneumothorax. Scattered reticular groundglass opacities througho ut the lungs. Airway: Large airways are patent. Heart: The heart is mildly enlarged for size.. No pericardial effusion. Vasculature: No evidence of aortic aneurysm. Mediastinum: No evidence of adenopathy. Musculoskeletal: Mild degenerative disc disease changes are present throughout the thoracolumbar spin e. No acute osseous abnormality. Stable sclerotic focus within the T8 vertebral body likely represent ing a bone island. Soft Tissues: Unremarkable. Lower neck: No significant findings. 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 Liver is diffusely hypoattenuate d. Gallbladder is surgically absent. IMPRESSION: 1. No evidence of pulmonary embolism. 2. Scattered reticular groundglass opacities consistent with atypical pulmonary infection. 3. Hepatic steatosis. [facility], , 09/27/2024 11:05 AM
== END | disposition home or self-care (01) ==
LOC: RADCTMAIN 09:47
PROVIDERS: ATTEND Internal Medicine
DX: I26.99 Other pulmonary embolism without acute cor pulmonale (principal); K76.0 Fatty (change of) liver, not elsewhere classified; R91.8 Other nonspecific abnormal finding of lung field
CPT/HCPCS: 82565; 84520; 71275; 36415; Q9967

== ENCOUNTER → 2024-09-29 | Outpatient (CLI) | payer MEDICARE, OTHER ==
[2024-09-30 07:23] LABS: Cryptosporidium Antigen Negative (Negative)
== END | disposition home or self-care (01) ==
LOC: LABWHC1 11:40
PROVIDERS: ATTEND Nurse Practitioner Family
DX: R19.7 Diarrhea, unspecified (principal)
CPT/HCPCS: 83630; 87045; 87046; 87328; 87329